=== PATIENT | male | born 1945 | race African-American/Black ===

== ENCOUNTER 2016-12-24 01:20 | Inpatient (IN) | payer OTHER ==
[~2016-12-24] VITALS: Ht 177.8 cm; Wt 102.6 kg
[~2016-12-24 01:20] MED LIST: AMLO10TA2 PO; ASPI-482 PO; ASPI81TA44 PO; CARV25TA2 PO; CRESTOR40 MG PO; HYDR-2758 PO; HYDR25TA9 PO; LOSA100T6 PO; NIAC500T PO; TAMS0.4C2 PO; TRAM50TA PO
[2016-12-24] MEDS ORDERED: fentaNYL PF VIAL 100 MCG/2 ML VIAL IV PRN (02:00)
[2016-12-24 02:16] LABS: BASO % 0 % (0-3); EOS % 4 % (0-3); HEMATOCRIT 42.4 % (39.0-53.0); HEMOGLOBIN 13.6 g/dL (13.0-17.5); LYMPH # 2.4 x10^3/uL (1.0-4.8); LYMPH % 44 % (24-48); MEAN CORPUSCULAR HEMOGLOBIN 28 pg (25-35); MEAN CORPUSCULAR HGB CONC 32 g/dL (31-37); MEAN CORPUSCULAR VOLUME 86 fL (79-100); MONO % 8 % (0-9); NEUT % 45 % (31-73); PLATELET COUNT 183 x10^3/uL (140-400); RED CELL DISTRIBUTION WIDTH 15.2 % (11.5-14.5); WHITE BLOOD COUNT 5.6 x10^3/uL (4.0-11.0)
[2016-12-24 02:29] LABS: CALCIUM 9.3 mg/dL (8.5-10.1); CREATININE 1.5 mg/dL (0.7-1.3); POTASSIUM 3.6 mmol/L (3.5-5.1)
[2016-12-24] MEDS ORDERED: IV NORMAL SALINE 500ML BAG 500 ML IV ONE (02:30)
[2016-12-24] MEDS ORDERED: ONDANSETRON PF 4 MG/2 ML VIAL. IV ONE (02:30)
[2016-12-24 02:36] LABS: ALBUMIN 3.9 g/dL (3.4-5.0); ALBUMIN/GLOBULIN RATIO 1.1 (1.0-1.7); TOTAL BILIRUBIN 0.4 mg/dL (0.2-1.0); TOTAL PROTEIN 7.6 g/dL (6.4-8.2)
[2016-12-24] MEDS ORDERED: BENZONATATE 100 MG CAPSULE. PO ONE (03:30)
[2016-12-24] MEDS ORDERED: AZITHRMYCN 500MG IVPB FOR OMNI 250 ML IV ONE (03:30)
[2016-12-24] MEDS ORDERED: IPRATRPIUM/ALBUTEROL 0.5/2.5MG 3 ML NEBU. NEB ONE (03:30)
[2016-12-24 03:44] LABS: BILIRUBIN,URINE NEGATIVE (NEG); GLUCOSE,URINE NEGATIVE (NEG); NITRITE,URINE NEGATIVE (NEG); PROTEIN,URINE NEGATIVE (NEG-TRACE); UROBILINOGEN,URINE 0.2 mg/dL (0.2 mg/dL)
[2016-12-24 03:58] LABS: BACTERIA,URINE 0 /HPF (0-FEW); SQUAMOUS EPITHELIAL CELL,UR OCC /LPF
[2016-12-24] MEDS ORDERED: ACETAMINOPHEN 325 MG TABLET. PO PRN (04:45)
[2016-12-24] MEDS ORDERED: MORPHINE SULFATE 2 MG/ML DISP.SYRIN. IV PRN (04:45)
[2016-12-24] MEDS ORDERED: ONDANSETRON PF 4 MG/2 ML VIAL. IV PRN (04:45)
--- NOTE | 2016-12-24 04:52 | PHYS DOC ---
Past Medical History Past Medical History: Gallstones, Hypertension, Kidney Stone Past Surgical History: Other Additional Past Surgical Histo: gall stone removal, cardiac stents Alcohol Use: Occasionally Drug Use: None Adult General Chief Complaint Chief Complaint: ABDOMINAL PAIN HPI HPI Patient is a 71 year old male who presents with abdominal pain. Reports 3 or history of epigastric abdominal pain he describes as tightness. Pain nonradiating. Denies fevers or chills, nausea or vomiting, diarrhea or constipation, dysuria or hematuria. Denies chest pain or shortness of breath. Reports frequent cough. History of cholecystectomy and CAD status post cardiac stents. Nonsmoker. PCP is Dr. Gastelum. Review of Systems Review of Systems Constitutional: Denies fever or chills Eyes: Denies change in visual acuity HENT: Denies nasal congestion or sore throat Respiratory: Reports cough, denies shortness of breath Cardiovascular: Denies chest pain or edema GI: Reports abdominal pain, denies nausea, vomiting, bloody stools or diarrhea : Denies dysuria or hematuria Musculoskeletal: Denies back pain or joint pain Integument: Denies rash or skin lesions Neurologic: Denies headache, focal weakness or sensory changes Current Medications Current Medications Current Medications Medications (Trade) Dose Ordered Sig/Umu Start Time Stop Time Status Last Admin Dose Admin Fentanyl Citrate (Fentanyl 2ml Vial) 50 mcg PRN Q15MIN PRN 12/24/16 02:00 12/24/16 07:00 DC 12/24/16 02:12 50 MCG Ondansetron HCl (Zofran) 4 mg 1X ONCE 12/24/16 02:30 12/24/16 02:31 DC 12/24/16 02:12 4 MG Sodium Chloride 500 ml @ 500 mls/hr 1X ONCE 12/24/16 02:30 12/24/16 03:29 DC 12/24/16 02:11 500 MLS/HR Allergies Allergies Allergies Coded Allergies Type Severity Reaction Last Updated Verified No Known Drug Allergies 11/13/13 No Physical Exam Physical Exam Constitutional: Obese, no acute distress, non-toxic appearance. HENT: Normocephalic, atraumatic, bilateral external ears normal, oropharynx moist, nose normal. Eyes: PERRLA, EOMI, conjunctiva normal, no discharge. Neck: supple, no stridor. Cardiovascular: RRR, no murmurs, no edema. Lungs & Thorax: LCTAB, no wheezing, no respiratory distress. Frequent dry cough , oxygen saturation 80 9090% on room air with good waveform, placed on oxygen 3 L by nasal cannula Abdomen: Normal bowel sounds, soft, upper abdominal tenderness greatest in the epigastrium, no rebound or guarding, no masses or pulsatile masses, nondistended. Skin: Warm, dry, no erythema, no rash. Back: No CVA tenderness. Extremities: No tenderness, no edema. Neurologic: Alert and oriented X 3, no focal deficits noted. Psychologic: Affect normal, judgement normal, mood normal. Current Patient Data Vital Signs Vital Signs Date Time Temp Pulse Resp B/P (MAP) Pulse Ox O2 Delivery O2 Flow Rate FiO2 12/24/16 02:30 80 28 161/87 (111) 94 Nasal Cannula 3.0 12/24/16 01:51 98.2 98.2 Lab Values Laboratory Tests Test 12/24/16 01:45 White Blood Count 5.6 x10^3/uL (4.0-11.0) Red Blood Count 4.90 x10^6/uL (4.30-5.70) Hemoglobin 13.6 g/dL (13.0-17.5) Hematocrit 42.4 % (39.0-53.0) Mean Corpuscular Volume 86 fL (79-100) Mean Corpuscular Hemoglobin 28 pg (25-35) Mean Corpuscular Hemoglobin Concent 32 g/dL (31-37) Red Cell Distribution Width 15.2 % (11.5-14.5) H Platelet Count 183 x10^3/uL (140-400) Neutrophils (%) (Auto) 45 % (31-73) Lymphocytes (%) (Auto) 44 % (24-48) Monocytes (%) (Auto) 8 % (0-9) Eosinophils (%) (Auto) 4 % (0-3) H Basophils (%) (Auto) 0 % (0-3) Neutrophils # (Auto) 2.5 x10^3uL (1.8-7.7) Lymphocytes # (Auto) 2.4 x10^3/uL (1.0-4.8) Monocytes # (Auto) 0.4 x10^3/uL (0.0-1.1) Eosinophils # (Auto) 0.2 x10^3/uL (0.0-0.7) Basophils # (Auto) 0.0 x10^3/uL (0.0-0.2) Sodium Level 143 mmol/L (136-145) Potassium Level 3.6 mmol/L (3.5-5.1) Chloride Level 107 mmol/L (98-107) Carbon Dioxide Level 27 mmol/L (21-32) Anion Gap 9 (6-14) Blood Urea Nitrogen 12 mg/dL (8-26) Creatinine 1.5 mg/dL (0.7-1.3) H Estimated GFR (Cockcroft-Gault) 56.0 BUN/Creatinine Ratio 8 (6-20) Glucose Level 113 mg/dL (70-99) H Calcium Level 9.3 mg/dL (8.5-10.1) Total Bilirubin 0.4 mg/dL (0.2-1.0) Aspartate Amino Transferase (AST) 20 U/L (15-37) Alanine Aminotransferase (ALT) 25 U/L (16-63) Alkaline Phosphatase 65 U/L (46-116) Troponin I Quantitative 0.037 ng/mL (0.000-0.055) PH-Alb-V-Type Natriuretic Peptide 871 pg/mL (0-124) H Total Protein 7.6 g/dL (6.4-8.2) Albumin 3.9 g/dL (3.4-5.0) Albumin/Globulin Ratio 1.1 (1.0-1.7) Triglycerides Level 134 mg/dL (0-150) Cholesterol Level 282 mg/dL (0-200) H LDL Cholesterol, Calculated 201 mg/dL (0-100) H VLDL Cholesterol, Calculated 27 mg/dL (0-40) Non-HDL Cholesterol Calculated 228 mg/dL (0-129) H HDL Cholesterol 54 mg/dL (40-60) Cholesterol/HDL Ratio 5.2 Lipase 312 U/L (73-393) Laboratory Tests 12/24/16 01:45 Laboratory Tests 12/24/16 01:45 EKG EKG interpreted by me: NSR rate 88, T waves inverted in 1 & aVL without ST depression similar to previous EKG dated 03/16/2016, no STEMI, intraventricular block, no ectopy.[] Radiology/Procedures Radiology/Procedures CXR: interpreted by me: RML infiltrate, cardiomegaly, no pneumothorax. mediastinum appears widened, similar to previous study dated 03/16/2016 with tortuous aorta.[] Course & Med Decision Making Course & Med Decision Making Pertinent Labs and Imaging studies reviewed. (See chart for details) Patient presents with abdominal pain. Noted to be hypoxic with cough upon arrival. Gave pain medication and antiemetics. Initially unable to lie flat for CT due to frequent coughing. Gave DuoNeb and Tessalon Perles. He was able to tolerate CT. Chest x-ray showed infiltrate. Gave antibiotics for community- acquired pneumonia. Does not meet criteria for sepsis. No recent hospitalizations. CT shows no acute intra-abdominal process. Recommended admission to the hospital for further evaluation and treatment. The patient agreed with plan of care. Discussed with Dr. Gastelum who agrees to admit to inpatient status. We will obtain repeat troponin due to possible cardiac nature of the abdominal pain. Gave Lasix for elevated BNP with evidence of CHF. Cardiology consult & pulmonary consult requested. The patient had CT of his abdomen with extremely delayed interpretation by radiologist, prolonging his stay in the emergency department. He was not found to have any acute abnormality on this study. He was admitted in stable condition. [] Dragon Disclaimer Dragon Disclaimer This electronic medical record was generated, in whole or in part, using a voice recognition dictation system. Departure Departure Impression: Primary Impression: Community acquired pneumonia Additional Impressions: Hypoxia Elevated brain natriuretic peptide (BNP) level Abdominal pain Disposition: ADMITTED INPATIENT Admitting Physician: Trav Gastelum Condition: STABLE Referrals: TRAV GASTELUM MD (PCP) Problem Qualifiers JUHI GUIDO MD Dec 24, 2016 04:52
--- NOTE | 2016-12-24 05:39 | RAD ---
INDICATION: ABDOMEN PAIN
SENT OLD FILMS FROM 03.16.16 COMPARISON: March 16, 2016 TECHNIQUE: Axial CT images were obtained through the abdomen and pelvis without intravenous contrast. Limited assessment of solid organ structures and vasculature secondary to lack of intravenous contrast. One or more of the following individualized dose reduction techniques were utilized for this examination: 1. Automated exposure control; 2. Adjustment of the mA and/or kV according to patient size; 3. Use of iterative reconstruction technique. FINDINGS: Groundglass opacities at lung bases with interstitial thickening with more focal nodular opacities at right lung base. Moderate calcific atherosclerosis. Postcholecystectomy changes without intrahepatic bile duct dilation. No peripancreatic edema. Evaluation of the pancreas without contrast. Spleen unremarkable. Multiple left greater than right renal stones. Left nephroureteral stent. Mild left hydronephrosis. 38 mm right renal cystic lesion again seen. No right hydronephrosis. Bladder is partially distended. Colonic diverticulosis. No definite periappendiceal inflammation. Calcification left upper leg anteriorly which could be from calcific tendinosis. Small fat-containing umbilical hernia. No dilated loops of bowel to suggest obstruction. Stomach is not very distended but wall appears mildly prominent. Degenerative changes spine. Degenerative changes of the hips. IMPRESSION: 1. Groundglass opacities in bilateral lung bases with interstitial thickening and small pleural effusion. Could be secondary to pulmonary edema. In addition there is a more focal opacity right lung base. Could be from confluent edema but a region of infiltrate is not excluded. 2. Left-sided nephroureteral stent with left greater than right renal stones. There is mild left-sided hydronephrosis. 3. Severe degenerative changes of the spine with multilevel central canal and neural foraminal stenosis. Electronically signed by: Enrike Gastelum MD (12/24/2016 5:36 AM)
[2016-12-24] MEDS ORDERED: FUROSEMIDE 40 MG/4 ML VIAL. IVP ONE ×2 (06:00→11:15)
[2016-12-24 06:16] VITALS: BP 166/102
--- NOTE | 2016-12-24 06:18 | EKG ---
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
[2016-12-24 07:00] VITALS: BP 155/95
[2016-12-24] MEDS: IPRATRPIUM/ALBUTEROL 0.5/2.5MG 3 ML NEBU. NEB SCH ×4 (07:12→19:16)
--- NOTE | 2016-12-24 07:54 | RAD ---
Indication shortness of breath. A single view of the chest was obtained and is compared to an examination 03/16/2016. Moderately tortuous thoracic aorta is noted similar to the previous exam. Heart size is at the upper limits of normal but unchanged. There are pulmonary infiltrates suggesting moderate congestive heart failure. A consolidated pneumonia is not seen. There is no pleural fluid or pneumothorax. IMPRESSION: Moderate congestive heart failure. No focal process seen
--- NOTE | 2016-12-24 07:59 | ACF ---
Admission Forms Criteria PNEUMONIA, COMMUNITY ACQUIRED Clinical Indications for Admission to Inpatient Care (Place 'X' for any and all applicable criteria): Admission to inpatient status for two midnights or more is indicated for ANY ONE of the following (1)(2)(3): [ ]I. Hypoxia [ ]II. Hemodynamic instability [ ]III. Altered mental status that is severe or persistent [ ]IV. Dehydration that is severe or persistent. [ ]V. Bacteremia [X]. Moderate-risk or high-risk category patients (Pneumonia Severity Index ( PSI) class IV or V, or CURB-65 score of 3 or greater). [ ]VII. Intermediate-risk category patients (e.g., PSI class III or CURB-65 score 2) who do not improve with outpatient and observation care treatment [ ]VIII. Outpatient treatment failure as indicated by 1 or more of the following(9): [ ]a) Failure to respond to antibiotic (eg, resistant organism) [ ]b) Clinically significant adverse effects from medication (eg, vomiting) [ ]c) Complications of pneumonia (eg, empyema, bacteremia) [ ]d) Significant worsening of comorbid cond necessitating inpatient care (eg, chronic heart failure) [ ]IX. Appropriate diagnostic testing and treatment unavailable in outpatient or recovery facility (eg, testing or infection control measures unavailable) [ ]X. Respiratory finding (eg. tachypnea) that do not respond to outpatient observation care treatment [ ]XI. Complicated pleural effusions (eg, emphysema, exudative, loculated) [ ]XII. Immunocompromised patients (e.g., AIDS, chronic steroid use) at moderate or high risk based on clinical evaluation. Extended stay beyond goal length of stay may be needed for (20) [ ]a) Unclear diagnosis [ ]b) Pleural disease [ ]c) Severe pneumonia or treatment failure [ ]d) Respiratory failure [ ]e) New onset hyponatremia (serum Na concentration less than 135 mEq/L(mmol/ L) [ ]f) Clinically significant comorbid illness (eg, heart failure, atrial fibrillation with rapid heart rate, alcohol withdrawal, renal insufficiency)(34)(35) [ ]g) Comorbid acute exacerbation of COPD(36) [ ]h) Concomitant diagnosis of malignancy [ ]i) Concomitant altered mental status [ ]j) Culture-identified Gram-negative or antibiotic-resistant organism (eg, Pseudomonas, methicillin-resistant Staphylococcus aureus MRSA)(30) [ ]k) Healthcare-associated pneumonia (36) The original [facility] content created by [facility] has been revised. The portions of the content which have been revised are identified through the use of italic text, and [facility] has neither reviewed nor approved the modified material. All other unmodified content is copyright [facility]. Please see references footnoted in the original [facility] edition 2015 Admission Criteria Met?: Yes CORINNE RAMESH Dec 24, 2016 07:59
[2016-12-24] MEDS ORDERED: PNEUMOCOCCAL VAX SCREEN BY RX. MC ONE (09:00)
[2016-12-24] MEDS ORDERED: PNEUMOC CONJ VACC 23-VALENT 0.5 ML VIAL. VAX IM ONE (09:00)
--- NOTE | 2016-12-24 09:06 | PDOC ---
Provider Note Provider Note [id number] LAURENCE MILLER MD Dec 24, 2016 09:06
--- NOTE | 2016-12-24 09:24 | HP ---
ADMIT DATE: 12/24/2016 CHIEF COMPLAINT: Shortness of breath. HISTORY OF PRESENT ILLNESS: This 71-year-old black male has a history of prior coronary artery disease with stents placed in 1999 as well as a CKD 3 and recent ureteral stenting placed in the left side per Dr. Veronica. He has no history of congestive heart failure or any other recent coronary problems. He developed fairly abrupt onset of shortness of breath, orthopnea on the evening of admission, and came to the ER, was felt to possibly have pneumonia. He was given IV Rocephin and Zithromax and the CT scan raised the question of bilateral pleural effusions, congestive heart failure. He denies any recent chest pain, sweating, nausea, leg pain, hemoptysis or other complaints. PAST MEDICAL HISTORY: Coronary stents placed in 1999. MEDICATIONS: Listed per the charts, many for high blood pressure. He has a history of CKD 3, his GFR runs around 40-45, which has been stable. He takes daily aspirin. SOCIAL HISTORY: Nonsmoker, nondrinker, . Physically active for his age. FAMILY HISTORY: Unremarkable. REVIEW OF SYSTEMS: No other complaints. OBJECTIVE: ENT: All within normal limits. NECK: No JVD. Thyroid enlargement or masses. LUNGS: Decreased breath sounds with few basilar crackles. No tachypnea. CARDIOVASCULAR: Regular rate, heart tones are unremarkable. ABDOMEN: Soft, benign and nontender. BACK: Negative. EXTREMITIES: 1+ pretibial edema only. No cords or edema. Pedal pulses are good. NEUROLOGIC: Physiologic. ASSESSMENT: Appears to be more of a congestive heart failure, dyspnea actual pneumonia. History of coronary artery disease in the past. Chronic kidney disease and hypertension are risks factors. PLAN: Echo, Lasix, and DVT study and further evaluation. LAURENCE MILLER MD DR: LIV/sanam JOB#: [id number] / [id number]
[2016-12-24] MEDS ORDERED: hydroCHLOROthiazide 25 MG TABLET PO SCH (09:30)
--- NOTE | 2016-12-24 09:53 | PDOC2 ---
SAAD MEZA MIXER CRANE OPERATOR 12/24/16 0953: CARDIAC CONSULT DATE OF CONSULT Date of Consult DATE: 12/24/16 TIME: 09:46 REASON FOR CONSULT Reason for Consult: Elevated BNP REFERRING PHYSICIAN Referring Physician: Dr. Nicholas SOURCE Source: Chart review, Patient HISTORY OF PRESENT ILLNESS HISTORY OF PRESENT ILLNESS This is a 71 yo male who presented with complaints of shortness of breath. Patient reports symptoms began yesterday afternoon. Worsened last night, especially after he laid down in bed. Denies any chest pain, Le edema, palpitations, dizziness, diaphoresis, or nausea/vomiting. No recent illness/ fevers. Does report chronic, non-productive cough. Does have a history of CAD with stent placement in 2001. 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 No previous h/o CHF and report feeling well until yesterday. PAST MEDICAL HISTORY Cardiovascular: CAD (s/p remote stent ), HTN GI: No pertinent hx Heme/Onc: No pertinent hx Hepatobiliary: No pertinent hx Psych: No pertinent hx Musculoskeletal: Osteoarthritis Rheumatologic: No pertinent hx Infectious disease: No pertinent hx ENT: No pertinent hx Renal/: Chronic renal insuff Endocrine: No pertinent hx Dermatology: No pertinent hx PAST SURGICAL HISTORY Past Surgical History: Cholecystectomy, Other (ureteral stenting ) FAMILY HISTORY Family History: Coronary Artery Disease, Diabetes, Hypertension SOCIAL HISTORY Smoke: No ALCOHOL: none Drugs: None Lives: with Family CURRENT MEDICATIONS CURRENT MEDICATIONS Current Medications Medications (Trade) Dose Ordered Sig/Umu Route PRN Reason Start Time Stop Time Status Last Admin Dose Admin Sodium Chloride 500 ml @ 500 mls/hr 1X ONCE IV 12/24/16 02:30 12/24/16 03:29 DC 12/24/16 02:11 Ondansetron HCl (Zofran) 4 mg 1X ONCE IV 12/24/16 02:30 12/24/16 02:31 DC 12/24/16 02:12 Fentanyl Citrate (Fentanyl 2ml Vial) 50 mcg PRN Q15MIN PRN IV PAIN GREATER THAN 3/10 12/24/16 02:00 12/24/16 07:00 DC 12/24/16 02:12 Albuterol/ Ipratropium (Duoneb) 3 ml 1X ONCE NEB 12/24/16 03:30 12/24/16 03:31 DC 12/24/16 03:18 Benzonatate (Tessalon Perle) 100 mg 1X ONCE PO 12/24/16 03:30 12/24/16 03:31 DC 12/24/16 03:30 Ceftriaxone Sodium 50 ml @ 100 mls/hr 1X ONCE IV 12/24/16 03:30 12/24/16 03:59 DC 12/24/16 03:31 Azithromycin 250 ml @ 250 mls/hr 1X ONCE IV 12/24/16 03:30 12/24/16 04:29 DC 12/24/16 03:31 Albuterol/ Ipratropium (Duoneb) 3 ml RTQID NEB 12/24/16 08:00 12/25/16 07:59 12/24/16 07:12 Furosemide (Lasix) 40 mg 1X ONCE IVP 12/24/16 06:00 12/24/16 06:01 DC 12/24/16 06:30 ALLERGIES ALLERGIES: Coded Allergies: No Known Drug Allergies (Unverified , 11/13/13) ROS Review of System 14 point ROS conducted with pertinent positives noted above in HPI. PHYSICAL EXAM General: Alert, Oriented X3, Cooperative, No acute distress HEENT: Atraumatic, Mucous membr. moist/pink Lungs: Other (diminished bases ) Heart: Regular rate, Normal S1, Normal S2, Other (2/6 systolic murmur ) Abdomen: Soft, No tenderness Extremities: No edema, Normal pulses Skin: No breakdown, No significant lesion Neuro: Normal gait, Sensation intact Psych/Mental Status: Mental status NL, Mood NL MUSCULOSKELETAL: Osteoarthritic changes both hands VITALS VITALS Vital Signs Date Time Temp Pulse Resp B/P (MAP) Pulse Ox O2 Delivery O2 Flow Rate FiO2 12/24/16 08:23 Nasal Cannula 3.0 12/24/16 07:16 88 12/24/16 07:00 98.7 102 18 155/95 (115) 98.7 LABS Lab: Laboratory Tests Test 12/24/16 01:45 12/24/16 03:35 White Blood Count 5.6 x10^3/uL (4.0-11.0) Red Blood Count 4.90 x10^6/uL (4.30-5.70) Hemoglobin 13.6 g/dL (13.0-17.5) Hematocrit 42.4 % (39.0-53.0) Mean Corpuscular Volume 86 fL (79-100) Mean Corpuscular Hemoglobin 28 pg (25-35) Mean Corpuscular Hemoglobin Concent 32 g/dL (31-37) Red Cell Distribution Width 15.2 % (11.5-14.5) Platelet Count 183 x10^3/uL (140-400) Neutrophils (%) (Auto) 45 % (31-73) Lymphocytes (%) (Auto) 44 % (24-48) Monocytes (%) (Auto) 8 % (0-9) Eosinophils (%) (Auto) 4 % (0-3) Basophils (%) (Auto) 0 % (0-3) Neutrophils # (Auto) 2.5 x10^3uL (1.8-7.7) Lymphocytes # (Auto) 2.4 x10^3/uL (1.0-4.8) Monocytes # (Auto) 0.4 x10^3/uL (0.0-1.1) Eosinophils # (Auto) 0.2 x10^3/uL (0.0-0.7) Basophils # (Auto) 0.0 x10^3/uL (0.0-0.2) Sodium Level 143 mmol/L (136-145) Potassium Level 3.6 mmol/L (3.5-5.1) Chloride Level 107 mmol/L (98-107) Carbon Dioxide Level 27 mmol/L (21-32) Anion Gap 9 (6-14) Blood Urea Nitrogen 12 mg/dL (8-26) Creatinine 1.5 mg/dL (0.7-1.3) Estimated GFR (Cockcroft-Gault) 56.0 BUN/Creatinine Ratio 8 (6-20) Glucose Level 113 mg/dL (70-99) Calcium Level 9.3 mg/dL (8.5-10.1) Total Bilirubin 0.4 mg/dL (0.2-1.0) Aspartate Amino Transf (AST/SGOT) 20 U/L (15-37) Alanine Aminotransferase (ALT/SGPT) 25 U/L (16-63) Alkaline Phosphatase 65 U/L (46-116) Troponin I Quantitative 0.037 ng/mL (0.000-0.055) HG-Dlb-U-Type Natriuretic Peptide 871 pg/mL (0-124) Total Protein 7.6 g/dL (6.4-8.2) Albumin 3.9 g/dL (3.4-5.0) Albumin/Globulin Ratio 1.1 (1.0-1.7) Lipase 312 U/L (73-393) Urine Collection Type Unknown Urine Color Yellow Urine Clarity Clear Urine pH 6.0 Urine Specific [place] 1.015 Urine Protein Negative mg/dL (NEG-TRACE) Urine Glucose (UA) Negative mg/dL (NEG) Urine Ketones (Stick) Negative mg/dL (NEG) Urine Blood Moderate (NEG) Urine Nitrite Negative (NEG) Urine Bilirubin Negative (NEG) Urine Urobilinogen Dipstick 0.2 mg/dL (0.2 mg/dL) Urine Leukocyte Esterase Small (NEG) Urine RBC 6-10 /HPF (0-2) Urine WBC 1-4 /HPF (0-4) Urine Squamous Epithelial Cells Occ /LPF Urine Bacteria 0 /HPF (0-FEW) Urine Mucus Slight /LPF ASSESSMENT/PLAN ASSESSMENT/PLAN 1. Mild acute heart failure; improved with diuresis 2. CAD; s/p remote stent. 3. Hypertension; better controlled 4. CKD 3 Recommendations 1. Check echo to assess LV function 2. Continue diuresis with monitoring of renal function 3. Trend CE. Check lipids 4. Consider further ischemic workup, possibly as an outpatient 5. Resume antiHTN therapy 6. Continue secondary prevention measures 7. Further recommendations pending diagnostic. Problems: KAITLYN PITTMAN MD 12/25/16 0845: CARDIAC CONSULT ALLERGIES ALLERGIES: Coded Allergies: No Known Drug Allergies (Unverified , 11/13/13) ASSESSMENT/PLAN ASSESSMENT/PLAN Patient seen and examined 12/24/16. Agree with CASE LINER's assessment and plan. Continue diuresis for congestive heart failure, most probably acute on chronic systolic. CAD status appears clinically stable. Further recommendations pending echo findings. Thank you for your consultation. Problems: SAAD MEZA APRN Dec 24, 2016 09:53 KAITLYN PITTMAN MD Dec 25, 2016 08:45
--- NOTE | 2016-12-24 09:58 | RAD ---
Exam performed: Bilateral lower extremity venous Doppler. Clinical Indication: Shortness of breath Comparison: None available Technique: Grayscale, color Doppler 2-D, spectral waveform analysis of the bilateral lower extremity venous system were performed. Findings: The common femoral, superficial femoral, popliteal and proximal calf veins are all patent and demonstrate normal flow and compressibility. Normal respiratory phasicity and augmentation is present. Impression: No evidence of deep venous thrombosis in the visualized bilateral lower extremity venous system.
[2016-12-24] MEDS: TAMSULOSIN 0.4 MG CAP.ER.24H. PO SCH (10:18)
[2016-12-24] MEDS: ASPIRIN CHEWABLE 81 MG TABLET. PO SCH (10:30)
[2016-12-24] MEDS: amLODIPine BESYLATE 10 MG TABLET PO SCH (10:30)
[2016-12-24] MEDS: LOSARTAN POTASSIUM 50 MG TABLET. PO SCH (10:31)
[2016-12-24] MEDS: CARVEDILOL 12.5 MG TABLET. PO SCH ×2 (10:31→17:40)
[2016-12-24 10:53] LABS: CHOLESTEROL/HDL RATIO 5.2
[2016-12-24 11:00] VITALS: BP 139/87
--- NOTE | 2016-12-24 15:08 | PDOC ---
PULMONARY PROGRESS NOTES Vitals Vital Signs Date Time Temp Pulse Resp B/P (MAP) Pulse Ox O2 Delivery O2 Flow Rate FiO2 12/24/16 11:15 94 Nasal Cannula 4.0 12/24/16 11:00 99.5 92 18 139/87 (104) 99.5 Labs Laboratory Tests Test 12/24/16 01:45 12/24/16 03:35 12/24/16 10:45 White Blood Count 5.6 x10^3/uL (4.0-11.0) Red Blood Count 4.90 x10^6/uL (4.30-5.70) Hemoglobin 13.6 g/dL (13.0-17.5) Hematocrit 42.4 % (39.0-53.0) Mean Corpuscular Volume 86 fL (79-100) Mean Corpuscular Hemoglobin 28 pg (25-35) Mean Corpuscular Hemoglobin Concent 32 g/dL (31-37) Red Cell Distribution Width 15.2 % (11.5-14.5) Platelet Count 183 x10^3/uL (140-400) Neutrophils (%) (Auto) 45 % (31-73) Lymphocytes (%) (Auto) 44 % (24-48) Monocytes (%) (Auto) 8 % (0-9) Eosinophils (%) (Auto) 4 % (0-3) Basophils (%) (Auto) 0 % (0-3) Neutrophils # (Auto) 2.5 x10^3uL (1.8-7.7) Lymphocytes # (Auto) 2.4 x10^3/uL (1.0-4.8) Monocytes # (Auto) 0.4 x10^3/uL (0.0-1.1) Eosinophils # (Auto) 0.2 x10^3/uL (0.0-0.7) Basophils # (Auto) 0.0 x10^3/uL (0.0-0.2) Sodium Level 143 mmol/L (136-145) Potassium Level 3.6 mmol/L (3.5-5.1) Chloride Level 107 mmol/L (98-107) Carbon Dioxide Level 27 mmol/L (21-32) Anion Gap 9 (6-14) Blood Urea Nitrogen 12 mg/dL (8-26) Creatinine 1.5 mg/dL (0.7-1.3) Estimated GFR (Cockcroft-Gault) 56.0 BUN/Creatinine Ratio 8 (6-20) Glucose Level 113 mg/dL (70-99) Calcium Level 9.3 mg/dL (8.5-10.1) Total Bilirubin 0.4 mg/dL (0.2-1.0) Aspartate Amino Transf (AST/SGOT) 20 U/L (15-37) Alanine Aminotransferase (ALT/SGPT) 25 U/L (16-63) Alkaline Phosphatase 65 U/L (46-116) Troponin I Quantitative 0.037 ng/mL (0.000-0.055) 0.043 ng/mL (0.000-0.055) OQ-Esi-U-Type Natriuretic Peptide 871 pg/mL (0-124) Total Protein 7.6 g/dL (6.4-8.2) Albumin 3.9 g/dL (3.4-5.0) Albumin/Globulin Ratio 1.1 (1.0-1.7) Triglycerides Level 134 mg/dL (0-150) Cholesterol Level 282 mg/dL (0-200) LDL Cholesterol, Calculated 201 mg/dL (0-100) VLDL Cholesterol, Calculated 27 mg/dL (0-40) Non-HDL Cholesterol Calculated 228 mg/dL (0-129) HDL Cholesterol 54 mg/dL (40-60) Cholesterol/HDL Ratio 5.2 Lipase 312 U/L (73-393) Urine Collection Type Unknown Urine Color Yellow Urine Clarity Clear Urine pH 6.0 Urine Specific [place] 1.015 Urine Protein Negative mg/dL (NEG-TRACE) Urine Glucose (UA) Negative mg/dL (NEG) Urine Ketones (Stick) Negative mg/dL (NEG) Urine Blood Moderate (NEG) Urine Nitrite Negative (NEG) Urine Bilirubin Negative (NEG) Urine Urobilinogen Dipstick 0.2 mg/dL (0.2 mg/dL) Urine Leukocyte Esterase Small (NEG) Urine RBC 6-10 /HPF (0-2) Urine WBC 1-4 /HPF (0-4) Urine Squamous Epithelial Cells Occ /LPF Urine Bacteria 0 /HPF (0-FEW) Urine Mucus Slight /LPF Thyroid Stimulating Hormone (TSH) 5.313 uIU/mL (0.358-3.74) Laboratory Tests Test 12/24/16 01:45 12/24/16 03:35 12/24/16 10:45 White Blood Count 5.6 x10^3/uL (4.0-11.0) Red Blood Count 4.90 x10^6/uL (4.30-5.70) Hemoglobin 13.6 g/dL (13.0-17.5) Hematocrit 42.4 % (39.0-53.0) Mean Corpuscular Volume 86 fL (79-100) Mean Corpuscular Hemoglobin 28 pg (25-35) Mean Corpuscular Hemoglobin Concent 32 g/dL (31-37) Red Cell Distribution Width 15.2 % (11.5-14.5) Platelet Count 183 x10^3/uL (140-400) Neutrophils (%) (Auto) 45 % (31-73) Lymphocytes (%) (Auto) 44 % (24-48) Monocytes (%) (Auto) 8 % (0-9) Eosinophils (%) (Auto) 4 % (0-3) Basophils (%) (Auto) 0 % (0-3) Neutrophils # (Auto) 2.5 x10^3uL (1.8-7.7) Lymphocytes # (Auto) 2.4 x10^3/uL (1.0-4.8) Monocytes # (Auto) 0.4 x10^3/uL (0.0-1.1) Eosinophils # (Auto) 0.2 x10^3/uL (0.0-0.7) Basophils # (Auto) 0.0 x10^3/uL (0.0-0.2) Sodium Level 143 mmol/L (136-145) Potassium Level 3.6 mmol/L (3.5-5.1) Chloride Level 107 mmol/L (98-107) Carbon Dioxide Level 27 mmol/L (21-32) Anion Gap 9 (6-14) Blood Urea Nitrogen 12 mg/dL (8-26) Creatinine 1.5 mg/dL (0.7-1.3) Estimated GFR (Cockcroft-Gault) 56.0 BUN/Creatinine Ratio 8 (6-20) Glucose Level 113 mg/dL (70-99) Calcium Level 9.3 mg/dL (8.5-10.1) Total Bilirubin 0.4 mg/dL (0.2-1.0) Aspartate Amino Transf (AST/SGOT) 20 U/L (15-37) Alanine Aminotransferase (ALT/SGPT) 25 U/L (16-63) Alkaline Phosphatase 65 U/L (46-116) Troponin I Quantitative 0.037 ng/mL (0.000-0.055) 0.043 ng/mL (0.000-0.055) OZ-Xpx-K-Type Natriuretic Peptide 871 pg/mL (0-124) Total Protein 7.6 g/dL (6.4-8.2) Albumin 3.9 g/dL (3.4-5.0) Albumin/Globulin Ratio 1.1 (1.0-1.7) Triglycerides Level 134 mg/dL (0-150) Cholesterol Level 282 mg/dL (0-200) LDL Cholesterol, Calculated 201 mg/dL (0-100) VLDL Cholesterol, Calculated 27 mg/dL (0-40) Non-HDL Cholesterol Calculated 228 mg/dL (0-129) HDL Cholesterol 54 mg/dL (40-60) Cholesterol/HDL Ratio 5.2 Lipase 312 U/L (73-393) Urine Collection Type Unknown Urine Color Yellow Urine Clarity Clear Urine pH 6.0 Urine Specific [place] 1.015 Urine Protein Negative mg/dL (NEG-TRACE) Urine Glucose (UA) Negative mg/dL (NEG) Urine Ketones (Stick) Negative mg/dL (NEG) Urine Blood Moderate (NEG) Urine Nitrite Negative (NEG) Urine Bilirubin Negative (NEG) Urine Urobilinogen Dipstick 0.2 mg/dL (0.2 mg/dL) Urine Leukocyte Esterase Small (NEG) Urine RBC 6-10 /HPF (0-2) Urine WBC 1-4 /HPF (0-4) Urine Squamous Epithelial Cells Occ /LPF Urine Bacteria 0 /HPF (0-FEW) Urine Mucus Slight /LPF Thyroid Stimulating Hormone (TSH) 5.313 uIU/mL (0.358-3.74) Medications Active Scripts Medications Dose Route/Sig Max Daily Dose Days Date Category Children's Aspirin (Aspirin) 81 Mg Tab.chew 81 Mg PO DAILY 03/24/16 Reported Hydrocodone-Apap 5-325 (Hydrocodone Bit/Acetaminophen) 1 Each Tablet 1 Tab PO PRN Q6HRS PRN 03/16/16 Rx Tramadol Hcl 50 Mg Tablet 50 Mg PO Q6H PRN 01/04/14 Reported Hydrochlorothiazide Tablet (Hydrochlorothiazide) 25 Mg Tablet 25 Mg PO DAILY 01/04/14 Reported Losartan Potassium 100 Mg Tablet 100 Mg PO DAILY 01/04/14 Reported Crestor (Rosuvastatin Calcium) 40 Mg Tablet 40 Mg PO HS 01/04/14 Reported Amlodipine Besylate 10 Mg Tablet 10 Mg PO DAILY 01/04/14 Reported Carvedilol 25 Mg Tablet 25 Mg PO BID 01/04/14 Reported Tamsulosin Hcl 0.4 Mg Cap.er.24h 0.4 Mg PO DAILY 01/04/14 Reported Niaspan (Niacin) 500 Mg Tab.er.24h 500 Mg PO HS 01/04/14 Reported Impression . FULL NOTE DICTATED ABNORAML CXR AND CT OF CHEST COMPATIBLE WITH CHF NO NEED FOR ANTIBX WILL FOLLOW CARD INPUT NEEDS OUTPT SLEEP STUDY FOR SOM MAXI SALDANA MD Dec 24, 2016 15:08
--- NOTE | 2016-12-24 16:02 | CARD ---
APPROVED REPORT EXAM: Two-dimensional and M-mode echocardiogram with Doppler and color Doppler. Other Information Quality : Fair INDICATION Congestive Heart Failure 2D DIMENSIONS Left Atrium(2D)3.9 (1.6-4.0cm)IVSd1.2 (0.7-1.1cm) Aortic Root(2D)2.5 (2.0-3.7cm)LVDd5.8 (3.9-5.9cm) LVOT Diameter2.2 (1.8-2.4cm)PWd1.1 (0.7-1.1cm) LVDs5.0 (2.5-4.0cm)FS (%) 13.3 % SV46.3 mlLVEF(%)25.0 (>50%) Aortic Valve AoV Peak Luciano.119.8cm/sAoV VTI19.9cm AO Peak GR.5.7mmHgLVOT Peak Luciano.49.2cm/s LVOT VTI 9.02cmAO Mean GR.4mmHg CARLOS (VMAX)1.56cm2 Mitral Valve MV E Oqcpoyzd35.9cm/sMV DECEL CXIC323us MV A Tnkupycm662.1cm/sMV QZA31su E/A Ratio0.9MVA (PHT)3.79cm2 TDI E/Lateral E'24.0E/Medial E'24.0 Tricuspid Valve TR P. Mfrjtucg170cr/sRAP REBTSUSA9oeMu TR Peak Gr.84ewAwXZLW40tvOm Pulmonary Vein S1 Rosgztqp62.2cm/sD2 Vgusjsdy49.7cm/s PVa [id number] LEFT VENTRICLE The left ventricle is normal size. There is mild concentric left ventricular hypertrophy. The ejectio n fraction is severely impaired. The Ejection Fraction is 20-25%. There is global hypokinesis of the left ventricle. Transmitral Doppler flow pattern is Grade I-abnormal relaxation pattern. RIGHT VENTRICLE The right ventricle is normal size. The right ventricular systolic function is normal. ATRIA The left atrium is mildly dilated. The right atrium size is normal. The interatrial septum is intact with no evidence for an atrial septal defect or patent foramen ovale as noted on 2-D or Doppler imagi ng. AORTIC VALVE Not well visualized. Doppler and Color Flow revealed trace to mild aortic regurgitation. There is no significant aortic valvular stenosis. MITRAL VALVE Not well visualized. There is no mitral valve stenosis. Doppler and Color-flow revealed mild mitral r egurgitation. TRICUSPID VALVE Not well visualized. Doppler and Color Flow revealed trace tricuspid regurgitation. The PA pressure w as estimated at 28 mmHg. There is no tricuspid valve stenosis. PULMONIC VALVE There is no pulmonic valvular stenosis. GREAT VESSELS The aortic root is normal in size. The ascending aorta is normal in size. The IVC is normal in size a nd collapses >50% with inspiration. PERICARDIAL EFFUSION There is no evidence of significant pericardial effusion. Critical Notification Critical Value: No <Conclusion> The ejection fraction is severely impaired. The Ejection Fraction is 20-25%. There is global hypokinesis of the left ventricle.
[2016-12-24 19:25] VITALS: BP 104/62
[2016-12-24] MEDS: ATORVASTATIN CALCIUM 40 MG TABLET. PO SCH (20:58)
[2016-12-24] MEDS: BENZONATATE 100 MG CAPSULE. PO SCH (20:58)
[2016-12-24 23:10] VITALS: BP 97/60
[2016-12-25 03:22] VITALS: BP 113/66
[2016-12-25 04:32] LABS: BASO % 0 % (0-3); EOS % 1 % (0-3); HEMOGLOBIN 12.5 g/dL (13.0-17.5); LYMPH # 1.4 x10^3/uL (1.0-4.8); LYMPH % 20 % (24-48); MEAN CORPUSCULAR HEMOGLOBIN 28 pg (25-35); MEAN CORPUSCULAR HGB CONC 33 g/dL (31-37); MEAN CORPUSCULAR VOLUME 86 fL (79-100); MONO % 7 % (0-9); NEUT % 71 % (31-73); PLATELET COUNT 174 x10^3/uL (140-400); RED BLOOD COUNT 4.45 x10^6/uL (4.30-5.70); RED CELL DISTRIBUTION WIDTH 15.1 % (11.5-14.5); WHITE BLOOD COUNT 6.9 x10^3/uL (4.0-11.0)
[2016-12-25 04:49] LABS: CALCIUM 8.9 mg/dL (8.5-10.1); GFR 40.2; POTASSIUM 3.5 mmol/L (3.5-5.1)
[2016-12-25 07:00] VITALS: BP 117/75
--- NOTE | 2016-12-25 08:52 | PDOC ---
Provider Note Provider Note good diuresis, less dyspnea- echo ef 25 %, creat up 2.0 after lasix- likely need cath re low ef, renal consult in advance, sono- tsh up a little, check T4- high lipids, on statin LAURENCE MILLER MD Dec 25, 2016 08:52
--- NOTE | 2016-12-25 08:53 | PDOC ---
PULMONARY PROGRESS NOTES Subjective PT LESS SOA NO CHEST PAIN Vitals Vital Signs Date Time Temp Pulse Resp B/P (MAP) Pulse Ox O2 Delivery O2 Flow Rate FiO2 12/25/16 07:00 98.7 70 18 117/75 (89) 98 Nasal Cannula 2.0 98.7 ROS: No Nausea, No Chest Pain, No Abdominal Pain, No Increase Cough Lungs: Clear Cardiovascular: S1, S2 Abdomen: Soft Neuro Exam: Alert Extremities: No Edema Labs Laboratory Tests Test 12/24/16 01:45 12/24/16 03:35 12/24/16 10:45 12/24/16 15:55 White Blood Count 5.6 x10^3/uL (4.0-11.0) Red Blood Count 4.90 x10^6/uL (4.30-5.70) Hemoglobin 13.6 g/dL (13.0-17.5) Hematocrit 42.4 % (39.0-53.0) Mean Corpuscular Volume 86 fL (79-100) Mean Corpuscular Hemoglobin 28 pg (25-35) Mean Corpuscular Hemoglobin Concent 32 g/dL (31-37) Red Cell Distribution Width 15.2 % (11.5-14.5) Platelet Count 183 x10^3/uL (140-400) Neutrophils (%) (Auto) 45 % (31-73) Lymphocytes (%) (Auto) 44 % (24-48) Monocytes (%) (Auto) 8 % (0-9) Eosinophils (%) (Auto) 4 % (0-3) Basophils (%) (Auto) 0 % (0-3) Neutrophils # (Auto) 2.5 x10^3uL (1.8-7.7) Lymphocytes # (Auto) 2.4 x10^3/uL (1.0-4.8) Monocytes # (Auto) 0.4 x10^3/uL (0.0-1.1) Eosinophils # (Auto) 0.2 x10^3/uL (0.0-0.7) Basophils # (Auto) 0.0 x10^3/uL (0.0-0.2) Sodium Level 143 mmol/L (136-145) Potassium Level 3.6 mmol/L (3.5-5.1) Chloride Level 107 mmol/L (98-107) Carbon Dioxide Level 27 mmol/L (21-32) Anion Gap 9 (6-14) Blood Urea Nitrogen 12 mg/dL (8-26) Creatinine 1.5 mg/dL (0.7-1.3) Estimated GFR (Cockcroft-Gault) 56.0 BUN/Creatinine Ratio 8 (6-20) Glucose Level 113 mg/dL (70-99) Calcium Level 9.3 mg/dL (8.5-10.1) Total Bilirubin 0.4 mg/dL (0.2-1.0) Aspartate Amino Transf (AST/SGOT) 20 U/L (15-37) Alanine Aminotransferase (ALT/SGPT) 25 U/L (16-63) Alkaline Phosphatase 65 U/L (46-116) Troponin I Quantitative 0.037 ng/mL (0.000-0.055) 0.043 ng/mL (0.000-0.055) 0.057 ng/mL (0.000-0.055) SH-Sgk-R-Type Natriuretic Peptide 871 pg/mL (0-124) Total Protein 7.6 g/dL (6.4-8.2) Albumin 3.9 g/dL (3.4-5.0) Albumin/Globulin Ratio 1.1 (1.0-1.7) Triglycerides Level 134 mg/dL (0-150) Cholesterol Level 282 mg/dL (0-200) LDL Cholesterol, Calculated 201 mg/dL (0-100) VLDL Cholesterol, Calculated 27 mg/dL (0-40) Non-HDL Cholesterol Calculated 228 mg/dL (0-129) HDL Cholesterol 54 mg/dL (40-60) Cholesterol/HDL Ratio 5.2 Lipase 312 U/L (73-393) Urine Collection Type Unknown Urine Color Yellow Urine Clarity Clear Urine pH 6.0 Urine Specific [place] 1.015 Urine Protein Negative mg/dL (NEG-TRACE) Urine Glucose (UA) Negative mg/dL (NEG) Urine Ketones (Stick) Negative mg/dL (NEG) Urine Blood Moderate (NEG) Urine Nitrite Negative (NEG) Urine Bilirubin Negative (NEG) Urine Urobilinogen Dipstick 0.2 mg/dL (0.2 mg/dL) Urine Leukocyte Esterase Small (NEG) Urine RBC 6-10 /HPF (0-2) Urine WBC 1-4 /HPF (0-4) Urine Squamous Epithelial Cells Occ /LPF Urine Bacteria 0 /HPF (0-FEW) Urine Mucus Slight /LPF Thyroid Stimulating Hormone (TSH) 5.313 uIU/mL (0.358-3.74) Test 12/25/16 04:00 White Blood Count 6.9 x10^3/uL (4.0-11.0) Red Blood Count 4.45 x10^6/uL (4.30-5.70) Hemoglobin 12.5 g/dL (13.0-17.5) Hematocrit 38.0 % (39.0-53.0) Mean Corpuscular Volume 86 fL (79-100) Mean Corpuscular Hemoglobin 28 pg (25-35) Mean Corpuscular Hemoglobin Concent 33 g/dL (31-37) Red Cell Distribution Width 15.1 % (11.5-14.5) Platelet Count 174 x10^3/uL (140-400) Neutrophils (%) (Auto) 71 % (31-73) Lymphocytes (%) (Auto) 20 % (24-48) Monocytes (%) (Auto) 7 % (0-9) Eosinophils (%) (Auto) 1 % (0-3) Basophils (%) (Auto) 0 % (0-3) Neutrophils # (Auto) 4.9 x10^3uL (1.8-7.7) Lymphocytes # (Auto) 1.4 x10^3/uL (1.0-4.8) Monocytes # (Auto) 0.5 x10^3/uL (0.0-1.1) Eosinophils # (Auto) 0.1 x10^3/uL (0.0-0.7) Basophils # (Auto) 0.0 x10^3/uL (0.0-0.2) Sodium Level 142 mmol/L (136-145) Potassium Level 3.5 mmol/L (3.5-5.1) Chloride Level 105 mmol/L (98-107) Carbon Dioxide Level 27 mmol/L (21-32) Anion Gap 10 (6-14) Blood Urea Nitrogen 21 mg/dL (8-26) Creatinine 2.0 mg/dL (0.7-1.3) Estimated GFR (Cockcroft-Gault) 40.2 Glucose Level 125 mg/dL (70-99) Calcium Level 8.9 mg/dL (8.5-10.1) Laboratory Tests Test 12/24/16 10:45 12/24/16 15:55 12/25/16 04:00 Troponin I Quantitative 0.043 ng/mL (0.000-0.055) 0.057 ng/mL (0.000-0.055) Thyroid Stimulating Hormone (TSH) 5.313 uIU/mL (0.358-3.74) White Blood Count 6.9 x10^3/uL (4.0-11.0) Red Blood Count 4.45 x10^6/uL (4.30-5.70) Hemoglobin 12.5 g/dL (13.0-17.5) Hematocrit 38.0 % (39.0-53.0) Mean Corpuscular Volume 86 fL (79-100) Mean Corpuscular Hemoglobin 28 pg (25-35) Mean Corpuscular Hemoglobin Concent 33 g/dL (31-37) Red Cell Distribution Width 15.1 % (11.5-14.5) Platelet Count 174 x10^3/uL (140-400) Neutrophils (%) (Auto) 71 % (31-73) Lymphocytes (%) (Auto) 20 % (24-48) Monocytes (%) (Auto) 7 % (0-9) Eosinophils (%) (Auto) 1 % (0-3) Basophils (%) (Auto) 0 % (0-3) Neutrophils # (Auto) 4.9 x10^3uL (1.8-7.7) Lymphocytes # (Auto) 1.4 x10^3/uL (1.0-4.8) Monocytes # (Auto) 0.5 x10^3/uL (0.0-1.1) Eosinophils # (Auto) 0.1 x10^3/uL (0.0-0.7) Basophils # (Auto) 0.0 x10^3/uL (0.0-0.2) Sodium Level 142 mmol/L (136-145) Potassium Level 3.5 mmol/L (3.5-5.1) Chloride Level 105 mmol/L (98-107) Carbon Dioxide Level 27 mmol/L (21-32) Anion Gap 10 (6-14) Blood Urea Nitrogen 21 mg/dL (8-26) Creatinine 2.0 mg/dL (0.7-1.3) Estimated GFR (Cockcroft-Gault) 40.2 Glucose Level 125 mg/dL (70-99) Calcium Level 8.9 mg/dL (8.5-10.1) Medications Active Scripts Medications Dose Route/Sig Max Daily Dose Days Date Category Children's Aspirin (Aspirin) 81 Mg Tab.chew 81 Mg PO DAILY 03/24/16 Reported Hydrocodone-Apap 5-325 (Hydrocodone Bit/Acetaminophen) 1 Each Tablet 1 Tab PO PRN Q6HRS PRN 03/16/16 Rx Tramadol Hcl 50 Mg Tablet 50 Mg PO Q6H PRN 01/04/14 Reported Hydrochlorothiazide Tablet (Hydrochlorothiazide) 25 Mg Tablet 25 Mg PO DAILY 01/04/14 Reported Losartan Potassium 100 Mg Tablet 100 Mg PO DAILY 01/04/14 Reported Crestor (Rosuvastatin Calcium) 40 Mg Tablet 40 Mg PO HS 01/04/14 Reported Amlodipine Besylate 10 Mg Tablet 10 Mg PO DAILY 01/04/14 Reported Carvedilol 25 Mg Tablet 25 Mg PO BID 01/04/14 Reported Tamsulosin Hcl 0.4 Mg Cap.er.24h 0.4 Mg PO DAILY 01/04/14 Reported Niaspan (Niacin) 500 Mg Tab.er.24h 500 Mg PO HS 01/04/14 Reported Impression . 1. Abnormal x-ray compatible with acute systolic heart failure, possible combination with diastolic heart failure. 2. Coronary artery disease with previous stent placement. 3. Clinical presentation compatible with obstructive sleep apnea. 4. Obesity. 5. Hypertension. 6. Chronic kidney disease. 7. Cardiomyopathy may be new Plan . 1. Recommend continue diuresis. 2. Cath today 3. Outpatient polysomnogram. 4. Agree with no need for antibiotics at this time. MAXI SALDANA MD Dec 25, 2016 08:53
[2016-12-25] MEDS: LOSARTAN POTASSIUM 50 MG TABLET. PO SCH ×2 (09:00→09:56)
[2016-12-25] MEDS: amLODIPine BESYLATE 10 MG TABLET PO SCH (09:00)
--- NOTE | 2016-12-25 09:44 | PDOC ---
SAAD MEZA MERLINE 12/25/16 0944: CARDIO Progress Notes Date and Time Date of Service 12/25/16 Time of Evaluation 0930 Subjective Subjective: No Chest Pain, No shortness of breath, No Palpitations Comments: one 5-beat run of NSVT noted overnight on telemetry Vitals Vitals Vital Signs Date Time Temp Pulse Resp B/P (MAP) Pulse Ox O2 Delivery O2 Flow Rate FiO2 12/25/16 09:00 70 117/75 12/25/16 07:00 98.7 18 98 Nasal Cannula 2.0 98.7 Weight Weight [ ] Input and Output Intake and Output Intake and Output 12/25/16 07:00 Intake Total 440 ml Output Total 2825 ml Balance -2385 ml Intake Oral 440 ml Output Urine Total 2825 ml # Voids 1 # Bowel Movements 1 Laboratory Labs Laboratory Tests Test 12/24/16 10:45 12/24/16 15:55 12/25/16 04:00 Troponin I Quantitative 0.043 ng/mL (0.000-0.055) 0.057 ng/mL (0.000-0.055) Thyroid Stimulating Hormone (TSH) 5.313 uIU/mL (0.358-3.74) White Blood Count 6.9 x10^3/uL (4.0-11.0) Red Blood Count 4.45 x10^6/uL (4.30-5.70) Hemoglobin 12.5 g/dL (13.0-17.5) Hematocrit 38.0 % (39.0-53.0) Mean Corpuscular Volume 86 fL (79-100) Mean Corpuscular Hemoglobin 28 pg (25-35) Mean Corpuscular Hemoglobin Concent 33 g/dL (31-37) Red Cell Distribution Width 15.1 % (11.5-14.5) Platelet Count 174 x10^3/uL (140-400) Neutrophils (%) (Auto) 71 % (31-73) Lymphocytes (%) (Auto) 20 % (24-48) Monocytes (%) (Auto) 7 % (0-9) Eosinophils (%) (Auto) 1 % (0-3) Basophils (%) (Auto) 0 % (0-3) Neutrophils # (Auto) 4.9 x10^3uL (1.8-7.7) Lymphocytes # (Auto) 1.4 x10^3/uL (1.0-4.8) Monocytes # (Auto) 0.5 x10^3/uL (0.0-1.1) Eosinophils # (Auto) 0.1 x10^3/uL (0.0-0.7) Basophils # (Auto) 0.0 x10^3/uL (0.0-0.2) Sodium Level 142 mmol/L (136-145) Potassium Level 3.5 mmol/L (3.5-5.1) Chloride Level 105 mmol/L (98-107) Carbon Dioxide Level 27 mmol/L (21-32) Anion Gap 10 (6-14) Blood Urea Nitrogen 21 mg/dL (8-26) Creatinine 2.0 mg/dL (0.7-1.3) Estimated GFR (Cockcroft-Gault) 40.2 Glucose Level 125 mg/dL (70-99) Calcium Level 8.9 mg/dL (8.5-10.1) Free Thyroxine 0.90 ng/dL (0.76-1.46) Physical Exam HEENT: Neck Supple W Full Motion Chest: Symmetric LUNGS: Other (diminished bases ) Heart: S1S2, RRR, murmurs (soft systolic murmur ) Abdomen: Soft N/T Extremities: Other (trace bilateral LE edema ) Neurology: alert, oriented, follow commands Assessment Assessment 1. Acute on chronic systolic heart failure; improved with diuresis 2. Cardiomyopathy; echo revealed LVEF 20-25% 3. CAD; s/p remote stent. 4. Hypertension; controlled with meds 5. CKD 3; Cr now 2.0; nephrology consulted 6. 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 R/b/a discussed with patient and is agreeable. Will plan for later on today. Renal optimization per nephrology. KAITLYN PITTMAN MD 12/25/16 4450: CARDIO Progress Notes Assessment Assessment Patient seen and examined. Agree with IT SUPPORT ENGINEER's assessment and plan. Acute on chronic systolic heart failure better compensated the patient's creatinine has increased. 2-D echo showed LVEF 20-25%. We'll plan for cardiac catheterization once deemed safe from nephrology standpoint. SAAD MEZA APRN Dec 25, 2016 09:44 KAITLYN PITTMAN MD Dec 25, 2016 17:30
--- NOTE | 2016-12-25 09:54 | RAD ---
Examination: Ultrasound kidneys History: History of chronic kidney disease Comparison: None available Findings: The right kidney measures 10.8 x 4.4 x 5.2 cm. The left kidney measures 10.2 x 4.6 x 5.5 cm. The urinary bladder is not well-distended. There is a 4.7 cm cystic structure identified in the right kidney with posterior acoustic enhancement likely a cyst Mild prominent left renal pelvis likely hydronephrosis. Impression: 1. 4.7 cm right renal cyst. 2. Mild left hydronephrosis.
[2016-12-25] MEDS: CARVEDILOL 12.5 MG TABLET. PO SCH ×2 (09:55→17:45)
[2016-12-25] MEDS: TAMSULOSIN 0.4 MG CAP.ER.24H. PO SCH (09:57)
[2016-12-25] MEDS: ASPIRIN CHEWABLE 81 MG TABLET. PO SCH (09:57)
[2016-12-25] MEDS: BENZONATATE 100 MG CAPSULE. PO SCH ×2 (09:57→20:10)
[2016-12-25] MEDS: POTASSIUM CHLORIDE 10 MEQ TABLET.ER. PO SCH ×3 (10:00→17:45)
[2016-12-25 11:00] VITALS: BP 122/67
--- NOTE | 2016-12-25 11:11 | CONS ---
DATE OF CONSULTATION: 12/24/2016 ATTENDING PHYSICIAN: Trav Gastelum M.D. INTEGRITY DIRECTOR PHYSICIAN: Maxi Saldana M.D. REASON FOR CONSULTATION: The patient is seen in pulmonary consultation at the request of Dr. Gastelum for abnormal x-ray and possible pneumonia. HISTORY OF PRESENT ILLNESS: The patient is a 71-year-old who presented with some abdominal pain and shortness of breath. He felt that he had abdominal distension. Part of his workup included CT abdomen and pelvis. CT abdomen revealed ground glass opacities in the lower bases of the lungs. In addition, there was a focal opacity in the right lung base that could be related to pneumonia. I was just consulted. Since his admission, the patient has also been worked up with an echocardiogram revealing ejection fraction of 20-25%. Venous Dopplers of the lower extremities were negative for DVT. Chest x-ray revealed evidence of CHF. The patient denies any prior history of low ejection fraction. He does take a water pill at home. PAST MEDICAL HISTORY: Coronary artery disease with previous stent placement in 2001, hypertension, osteoporosis, chronic renal insufficiency. PAST SURGICAL HISTORY: Status post cholecystectomy and ureteral stenting. FAMILY HISTORY: Coronary artery disease, diabetes, hypertension. SOCIAL HISTORY: He has never smoked. Denies any alcohol intake. REVIEW OF SYSTEMS: A 10-point review was performed that was negative except for sleep hygiene revealing that he snores. His has noticed some apneic spells. The patient awakens unrefreshed from his sleep and he does experience some excessive daytime sleepiness. CURRENT MEDICATION: List was reviewed. ALLERGIES: No known drug allergies. HOME MEDICATIONS: List was reviewed. PHYSICAL EXAMINATION: GENERAL: A 71-year-old gentleman in no respiratory distress, currently on 3 liters. Since admission, he has been afebrile. HEENT: Eyes, the sclerae were nonicteric. NECK: Jugular venous distention was not elevated. No lymphadenopathy. CHEST: Full expansion. LUNGS: Crackles, no wheezes. CARDIOVASCULAR: Regular rate and rhythm with S1, S2, no S3. ABDOMEN: Soft, obese. EXTREMITIES: No clubbing, cyanosis or pitting edema. NEUROLOGIC: The patient was awake and alert following commands. A detailed neuro exam was not performed. Chest x-ray reviewed. CT abdomen reviewed. LABORATORY DATA: Reviewed. White count was normal. Hemoglobin and hematocrit were noted. Electrolytes were noted. BNP was elevated. Troponin was elevated. Cholesterol level was elevated. IMPRESSION: 1. Abnormal x-ray compatible with acute systolic heart failure, possible combination with diastolic heart failure. 2. Coronary artery disease with previous stent placement. 3. Clinical presentation compatible with obstructive sleep apnea. 4. Obesity. 5. Hypertension. 6. Chronic kidney disease. PLAN: 1. Recommend continue diuresis. 2. Follow cardiology input. 3. Outpatient polysomnogram. 4. Agree with no need for antibiotics at this time. I do appreciate the privilege in sharing in the patient's care. MAXI SALDANA MD DR: STEPHANIE/sanam JOB#: [id number] / [id number]
[2016-12-25 15:00] VITALS: BP 116/72
--- NOTE | 2016-12-25 17:32 | PDOC2 ---
CONSULT Date of Consult Date of Consult DATE: 12/25/16 TIME: 17:22 Reason for Consult Reason for Consult: DENNIS/ CKD III Referring Physician Referring Physician: Dr Gastelum/ Dr Jacome Identification/Chief Complaint Chief Complaint SOB Problems: Source Source: Chart review, Patient Past Medical History Cardiovascular: CAD (s/p remote stent ), HTN GI: No pertinent hx Heme/Onc: No pertinent hx Hepatobiliary: No pertinent hx Psych: No pertinent hx Musculoskeletal: Osteoarthritis Rheumatologic: No pertinent hx Infectious disease: No pertinent hx ENT: No pertinent hx Renal/: Chronic renal insuff Endocrine: No pertinent hx Dermatology: No pertinent hx Past Surgical History Past Surgical History: Cholecystectomy, Other (ureteral stenting ) Family History Family History: Coronary Artery Disease, Diabetes, Hypertension Social History No ALCOHOL: none Drugs: None Lives: with Family Current Problem List Problem List Problems Medical Problems: (1) Abdominal pain Status: Acute (2) Community acquired pneumonia Status: Acute (3) Elevated brain natriuretic peptide (BNP) level Status: Acute (4) Hypoxia Status: Acute Current Medications Current Medications Current Medications Sodium Chloride 500 ml @ 500 mls/hr 1X ONCE IV Last administered on 02:11; Start 12/24/16 at 02:30; Stop 12/24/16 at 03:29; Status DC Ondansetron HCl (Zofran) 4 mg 1X ONCE IV Last administered on 12/24/16 02:12 ; Start 12/24/16 at 02:30; Stop 12/24/16 at 02:31; Status DC Fentanyl Citrate (Fentanyl 2ml Vial) 50 mcg PRN Q15MIN PRN IV PAIN GREATER THAN 3/10 Last administered on 12/24/16 02:12; Start 12/24/16 at 02:00; Stop at 07:00; Status DC Albuterol/ Ipratropium (Duoneb) 3 ml 1X ONCE NEB Last administered on 03:18; Start 12/24/16 at 03:30; Stop 12/24/16 at 03:31; Status DC Benzonatate (Tessalon Perle) 100 mg 1X ONCE PO Last administered on 12/24/16 03:30; Start 12/24/16 at 03:30; Stop 12/24/16 at 03:31; Status DC Ceftriaxone Sodium 50 ml @ 100 mls/hr 1X ONCE IV Last administered on 03:31; Start 12/24/16 at 03:30; Stop 12/24/16 at 03:59; Status DC Azithromycin 250 ml @ 250 mls/hr 1X ONCE IV Last administered on 12/24/16 03 :31; Start 12/24/16 at 03:30; Stop 12/24/16 at 04:29; Status DC Ondansetron HCl (Zofran) 4 mg PRN Q8HRS PRN IV NAUSEA/VOMITING; Start 12/24/16 at 04:45; Stop 12/25/16 at 04:44; Status DC Morphine Sulfate 2 mg PRN Q2HR PRN IV SEVERE PAIN; Start 12/24/16 at 04:45; Stop 12/25/16 at 04:44; Status DC Acetaminophen (Tylenol) 650 mg PRN Q4HRS PRN PO FEVER; Start 12/24/16 at 04:45 ; Stop 12/25/16 at 04:44; Status DC Albuterol/ Ipratropium (Duoneb) 3 ml RTQID NEB Last administered on 12/24/16 19:16; Start 12/24/16 at 08:00; Stop 12/25/16 at 07:59; Status DC Furosemide (Lasix) 40 mg 1X ONCE IVP Last administered on 12/24/16 06:30; Start 12/24/16 at 06:00; Stop 12/24/16 at 06:01; Status DC Pneumococcal Polyvalent Vaccine (Do NOT chart on this placeholder) 1 each 1X ONCE MC ; Start 12/24/16 at 09:00; Stop 12/24/16 at 09:01; Status UNV Pneumococcal Polyvalent Vaccine (Pneumovax 23) 0.5 ml ONCE ONCE VAX IM Last administered on 12/24/16 10:25; Start 12/24/16 at 09:00; Stop 12/24/16 at 09:02 ; Status DC Amlodipine Besylate (Norvasc) 10 mg DAILY PO Last administered on 12/24/16 10: 30; Start 12/24/16 at 09:30 Aspirin (Children'S Aspirin) 81 mg DAILY PO Last administered on 12/25/16 09: 57; Start 12/24/16 at 09:30 Hydrochlorothiazide (Hydrodiuril) 25 mg DAILY PO Last administered on 10:30; Start 12/24/16 at 09:30; Stop 12/25/16 at 08:51; Status DC Acetaminophen/ Hydrocodone Bitart (Lortab 5/325) 1 tab PRN Q6HRS PRN PO PAIN; Start 12/24/16 at 09:00 Tamsulosin HCl (Flomax) 0.4 mg DAILY PO Last administered on 12/25/16 09:57; Start 12/24/16 at 09:30 Tramadol HCl (Ultram) 50 mg PRN Q6HRS PRN PO PAIN; Start 12/24/16 at 09:00 Carvedilol (Coreg) 25 mg BIDWMEALS PO Last administered on 12/24/16 17:40; Start 12/24/16 at 09:30; Stop 12/25/16 at 09:44; Status DC Losartan Potassium (Cozaar) 100 mg DAILY PO Last administered on 12/24/16 10: 31; Start 12/24/16 at 09:30; Stop 12/25/16 at 09:44; Status DC Atorvastatin Calcium (Lipitor) 80 mg QHS PO Last administered on 12/24/16 20: 58; Start 12/24/16 at 21:00 Furosemide (Lasix) 40 mg 1X ONCE IVP Last administered on 12/24/16 11:30; Start 12/24/16 at 11:15; Stop 12/24/16 at 11:16; Status DC Benzonatate (Tessalon Perle) 100 mg BID PO Last administered on 12/25/16 09:57 ; Start 12/24/16 at 21:00 Potassium Chloride (Klor-Con) 10 meq TIDAFTMEAL PO Last administered on 14:46; Start 12/25/16 at 09:30 Carvedilol (Coreg) 12.5 mg BIDWMEALS PO Last administered on 12/25/16 09:55; Start 12/25/16 at 10:00 Losartan Potassium (Cozaar) 50 mg DAILY PO Last administered on 12/25/16 09:56 ; Start 12/25/16 at 10:00 Active Scripts Active Hydrocodone-Apap 5-325 (Hydrocodone Bit/Acetaminophen) 1 Each Tablet 1 Tab PO PRN Q6HRS PRN Reported Children's Aspirin (Aspirin) 81 Mg Tab.chew 81 Mg PO DAILY Tramadol Hcl 50 Mg Tablet 50 Mg PO Q6H PRN Hydrochlorothiazide Tablet (Hydrochlorothiazide) 25 Mg Tablet 25 Mg PO DAILY Losartan Potassium 100 Mg Tablet 100 Mg PO DAILY Crestor (Rosuvastatin Calcium) 40 Mg Tablet 40 Mg PO HS Amlodipine Besylate 10 Mg Tablet 10 Mg PO DAILY Carvedilol 25 Mg Tablet 25 Mg PO BID Tamsulosin Hcl 0.4 Mg Cap.er.24h 0.4 Mg PO DAILY Niaspan (Niacin) 500 Mg Tab.er.24h 500 Mg PO HS Allergies Allergies: Coded Allergies: No Known Drug Allergies (Unverified , 11/13/13) ROS Review of System GEN: no Fevers no Chills EYES: no Visual Complaints ENT: no EN Drainage no Hearing deficiets CVS: no Orthopnea no CP RESP: + SOB - OA no current ROGERS (not ambulated though) GI: no Nausea no Vomiting : occ Dysuria occ Urgency Freq and incomplete emptying HEME: no easy bruising no Palp Ly Nodes NEURO no Focal Weakness no Sz PSYCH: no Suicidal Ideation no Depression SKIN: no Rashes ENDO: no Polyuria or Polydipsia no Hot/Cold Intolerance MU SK: no Arthraigia no Myalgia Physical Exam Physical Exam General Appearance: Awake Alert Oriented x 3 In no Distress Eyes: VIsion Unchanged Conjunctiva Normal EN: No EN Drainage Mucous Memb. moist Neck: no JVD min JVP Supple no Thyromegaly CVS: S1 S2 ? Murmur No Gallop No Rub no Edema Resp: rare if any Rales no Rhonchi no Acc. Muscle use GI: BAS +ve NO Bruit Non Tender Non Distended : no CVA tenderness; no Suprapubic Tenderness SKIN: no Rashes Breast Exam deferred Mu.Sk: Adequate ROM no Muscle Atrophy Heme: Unable to palpate Obvious LAD no Splenomegaly NEURO: Good Strength and Tone Cranial Nerves II - XII grossly intact Psych: not Depressed no Active hallucination Vital Signs Vital Signs Date Time Temp Pulse Resp B/P (MAP) Pulse Ox O2 Delivery O2 Flow Rate FiO2 12/25/16 15:00 98.8 67 18 116/72 (87) 97 Nasal Cannula 2.0 98.8 Assessment & Plan DENNIS : Decompensation from cardiac standpoint, vs due to Loss of Function on Left (Obstructive Uropahty) Current FLuid and E-lyte status does not necessitate emergent need for Dialysis. Will re-evaluate for Dialysis in am CKD III - ? non-functioning Lt Kidney - most recent OP Creat is 1.[address] Mix office CHF - Diuresis to optimize Cardio-Resp status ? CAD - needs [facility] post stress test- NAC for now. HTN: Current BP meds reviewed. See orders for changes. Discussed Plan of Care and prognosis etc. at length with family. Labs Labs Laboratory Tests Test 12/24/16 01:45 12/24/16 03:35 12/24/16 10:45 12/24/16 15:55 White Blood Count 5.6 x10^3/uL (4.0-11.0) Red Blood Count 4.90 x10^6/uL (4.30-5.70) Hemoglobin 13.6 g/dL (13.0-17.5) Hematocrit 42.4 % (39.0-53.0) Mean Corpuscular Volume 86 fL (79-100) Mean Corpuscular Hemoglobin 28 pg (25-35) Mean Corpuscular Hemoglobin Concent 32 g/dL (31-37) Red Cell Distribution Width 15.2 % (11.5-14.5) Platelet Count 183 x10^3/uL (140-400) Neutrophils (%) (Auto) 45 % (31-73) Lymphocytes (%) (Auto) 44 % (24-48) Monocytes (%) (Auto) 8 % (0-9) Eosinophils (%) (Auto) 4 % (0-3) Basophils (%) (Auto) 0 % (0-3) Neutrophils # (Auto) 2.5 x10^3uL (1.8-7.7) Lymphocytes # (Auto) 2.4 x10^3/uL (1.0-4.8) Monocytes # (Auto) 0.4 x10^3/uL (0.0-1.1) Eosinophils # (Auto) 0.2 x10^3/uL (0.0-0.7) Basophils # (Auto) 0.0 x10^3/uL (0.0-0.2) Sodium Level 143 mmol/L (136-145) Potassium Level 3.6 mmol/L (3.5-5.1) Chloride Level 107 mmol/L (98-107) Carbon Dioxide Level 27 mmol/L (21-32) Anion Gap 9 (6-14) Blood Urea Nitrogen 12 mg/dL (8-26) Creatinine 1.5 mg/dL (0.7-1.3) Estimated GFR (Cockcroft-Gault) 56.0 BUN/Creatinine Ratio 8 (6-20) Glucose Level 113 mg/dL (70-99) Calcium Level 9.3 mg/dL (8.5-10.1) Total Bilirubin 0.4 mg/dL (0.2-1.0) Aspartate Amino Transf (AST/SGOT) 20 U/L (15-37) Alanine Aminotransferase (ALT/SGPT) 25 U/L (16-63) Alkaline Phosphatase 65 U/L (46-116) Troponin I Quantitative 0.037 ng/mL (0.000-0.055) 0.043 ng/mL (0.000-0.055) 0.057 ng/mL (0.000-0.055) ZU-[id number]-X-Type Natriuretic Peptide 871 pg/mL (0-124) Total Protein 7.6 g/dL (6.4-8.2) Albumin 3.9 g/dL (3.4-5.0) Albumin/Globulin Ratio 1.1 (1.0-1.7) Triglycerides Level 134 mg/dL (0-150) Cholesterol Level 282 mg/dL (0-200) LDL Cholesterol, Calculated 201 mg/dL (0-100) VLDL Cholesterol, Calculated 27 mg/dL (0-40) Non-HDL Cholesterol Calculated 228 mg/dL (0-129) HDL Cholesterol 54 mg/dL (40-60) Cholesterol/HDL Ratio 5.2 Lipase 312 U/L (73-393) Urine Collection Type Unknown Urine Color Yellow Urine Clarity Clear Urine pH 6.0 Urine Specific [place] 1.015 Urine Protein Negative mg/dL (NEG-TRACE) Urine Glucose (UA) Negative mg/dL (NEG) Urine Ketones (Stick) Negative mg/dL (NEG) Urine Blood Moderate (NEG) Urine Nitrite Negative (NEG) Urine Bilirubin Negative (NEG) Urine Urobilinogen Dipstick 0.2 mg/dL (0.2 mg/dL) Urine Leukocyte Esterase Small (NEG) Urine RBC 6-10 /HPF (0-2) Urine WBC 1-4 /HPF (0-4) Urine Squamous Epithelial Cells Occ /LPF Urine Bacteria 0 /HPF (0-FEW) Urine Mucus Slight /LPF Thyroid Stimulating Hormone (TSH) 5.313 uIU/mL (0.358-3.74) Test 12/25/16 04:00 White Blood Count 6.9 x10^3/uL (4.0-11.0) Red Blood Count 4.45 x10^6/uL (4.30-5.70) Hemoglobin 12.5 g/dL (13.0-17.5) Hematocrit 38.0 % (39.0-53.0) Mean Corpuscular Volume 86 fL (79-100) Mean Corpuscular Hemoglobin 28 pg (25-35) Mean Corpuscular Hemoglobin Concent 33 g/dL (31-37) Red Cell Distribution Width 15.1 % (11.5-14.5) Platelet Count 174 x10^3/uL (140-400) Neutrophils (%) (Auto) 71 % (31-73) Lymphocytes (%) (Auto) 20 % (24-48) Monocytes (%) (Auto) 7 % (0-9) Eosinophils (%) (Auto) 1 % (0-3) Basophils (%) (Auto) 0 % (0-3) Neutrophils # (Auto) 4.9 x10^3uL (1.8-7.7) Lymphocytes # (Auto) 1.4 x10^3/uL (1.0-4.8) Monocytes # (Auto) 0.5 x10^3/uL (0.0-1.1) Eosinophils # (Auto) 0.1 x10^3/uL (0.0-0.7) Basophils # (Auto) 0.0 x10^3/uL (0.0-0.2) Sodium Level 142 mmol/L (136-145) Potassium Level 3.5 mmol/L (3.5-5.1) Chloride Level 105 mmol/L (98-107) Carbon Dioxide Level 27 mmol/L (21-32) Anion Gap 10 (6-14) Blood Urea Nitrogen 21 mg/dL (8-26) Creatinine 2.0 mg/dL (0.7-1.3) Estimated GFR (Cockcroft-Gault) 40.2 Glucose Level 125 mg/dL (70-99) Calcium Level 8.9 mg/dL (8.5-10.1) Free Thyroxine 0.90 ng/dL (0.76-1.46) Laboratory Tests Test 12/25/16 04:00 White Blood Count 6.9 x10^3/uL (4.0-11.0) Red Blood Count 4.45 x10^6/uL (4.30-5.70) Hemoglobin 12.5 g/dL (13.0-17.5) Hematocrit 38.0 % (39.0-53.0) Mean Corpuscular Volume 86 fL (79-100) Mean Corpuscular Hemoglobin 28 pg (25-35) Mean Corpuscular Hemoglobin Concent 33 g/dL (31-37) Red Cell Distribution Width 15.1 % (11.5-14.5) Platelet Count 174 x10^3/uL (140-400) Neutrophils (%) (Auto) 71 % (31-73) Lymphocytes (%) (Auto) 20 % (24-48) Monocytes (%) (Auto) 7 % (0-9) Eosinophils (%) (Auto) 1 % (0-3) Basophils (%) (Auto) 0 % (0-3) Neutrophils # (Auto) 4.9 x10^3uL (1.8-7.7) Lymphocytes # (Auto) 1.4 x10^3/uL (1.0-4.8) Monocytes # (Auto) 0.5 x10^3/uL (0.0-1.1) Eosinophils # (Auto) 0.1 x10^3/uL (0.0-0.7) Basophils # (Auto) 0.0 x10^3/uL (0.0-0.2) Sodium Level 142 mmol/L (136-145) Potassium Level 3.5 mmol/L (3.5-5.1) Chloride Level 105 mmol/L (98-107) Carbon Dioxide Level 27 mmol/L (21-32) Anion Gap 10 (6-14) Blood Urea Nitrogen 21 mg/dL (8-26) Creatinine 2.0 mg/dL (0.7-1.3) Estimated GFR (Cockcroft-Gault) 40.2 Glucose Level 125 mg/dL (70-99) Calcium Level 8.9 mg/dL (8.5-10.1) Free Thyroxine 0.90 ng/dL (0.76-1.46) Images Images The right kidney measures 10.8 x 4.4 x 5.2 cm. The left kidney measures 10.2 x 4.6 x 5.5 cm. The urinary bladder is not well-distended. There is a 4.7 cm cystic structure identified in the right kidney with posterior acoustic enhancement likely a cyst Mild prominent left renal pelvis likely hydronephrosis. Impression: 1. 4.7 cm right renal cyst. 2. Mild left hydronephrosis. Recent Abd CT Scan; Moderate calcific atherosclerosis. Multiple left greater than right renal stones. Left nephroureteral stent. Mild left hydronephrosis. 38 mm right renal cystic lesion again seen. No right hydronephrosis. Bladder is partially distended. CONTRERAS MILLER MD Dec 25, 2016 17:32
[2016-12-25] MEDS ORDERED: MAGNESIUM SULFATE 2GM 50 ML IV PRN (17:45)
[2016-12-25 18:28] LABS: BILIRUBIN,URINE NEGATIVE (NEG); GLUCOSE,URINE NEGATIVE (NEG); NITRITE,URINE NEGATIVE (NEG); PH,URINE 5.5; PROTEIN,URINE NEGATIVE (NEG-TRACE); UROBILINOGEN,URINE 0.2 mg/dL (0.2 mg/dL)
[2016-12-25 18:42] LABS: BACTERIA,URINE 0 /HPF (0-FEW); RBC,URINE TNTC /HPF (0-2); SQUAMOUS EPITHELIAL CELL,UR FEW /LPF; WBC,URINE >40 /HPF (0-4)
[2016-12-25 19:00] VITALS: BP 116/74
[2016-12-25] MEDS: ATORVASTATIN CALCIUM 40 MG TABLET. PO SCH (20:10)
[2016-12-25] MEDS: traMADol 50 MG TABLET PO PRN (20:10)
[2016-12-25] MEDS: ACETYLCYSTEINE 20% ORAL SOLN 600 MG/3 ML SYRINGE. PO SCH (20:11)
[2016-12-25 22:52] VITALS: BP 108/64
[2016-12-26] VITALS (7 sets, daily range): BP systolic 91–119; BP diastolic 55–72
[2016-12-26] MEDS: traMADol 50 MG TABLET PO PRN ×2 (03:12→19:58)
[2016-12-26 05:47] LABS: ALBUMIN 3.2 g/dL (3.4-5.0); CALCIUM 8.6 mg/dL (8.5-10.1); CREATININE 1.7 mg/dL (0.7-1.3); GFR 48.5; PHOSPHORUS 3.6 mg/dL (2.6-4.7); POTASSIUM 3.3 mmol/L (3.5-5.1)
[2016-12-26] MEDS: ASPIRIN CHEWABLE 81 MG TABLET. PO SCH (08:20)
[2016-12-26] MEDS: CARVEDILOL 12.5 MG TABLET. PO SCH ×2 (08:20→17:46)
[2016-12-26] MEDS: amLODIPine BESYLATE 10 MG TABLET PO SCH (08:20)
[2016-12-26] MEDS: LOSARTAN POTASSIUM 50 MG TABLET. PO SCH (08:21)
--- NOTE | 2016-12-26 08:38 | PDOC ---
Provider Note Provider Note vss, no orthopnea- bp lower so will reduce norvasc- T4 ok, creat down 1.7 pre cath LAURENCE MILLER MD Dec 26, 2016 08:38
[2016-12-26] MEDS ORDERED: FUROSEMIDE 40 MG/4 ML VIAL. IVP ONE (09:15)
--- NOTE | 2016-12-26 09:48 | PDOC ---
PULMONARY PROGRESS NOTES Subjective NO INCREASE SOA Vitals Vital Signs Date Time Temp Pulse Resp B/P (MAP) Pulse Ox O2 Delivery O2 Flow Rate FiO2 12/26/16 08:21 67 113/71 12/26/16 07:30 98.4 18 99 Nasal Cannula 2.0 98.4 ROS: No Nausea, No Chest Pain, No Abdominal Pain, No Increase Cough Lungs: Clear Cardiovascular: S1, S2 Abdomen: Soft Neuro Exam: Alert Extremities: No Edema Labs Laboratory Tests Test 12/24/16 10:45 12/24/16 15:55 12/25/16 04:00 12/25/16 17:40 Troponin I Quantitative 0.043 ng/mL (0.000-0.055) 0.057 ng/mL (0.000-0.055) Thyroid Stimulating Hormone (TSH) 5.313 uIU/mL (0.358-3.74) White Blood Count 6.9 x10^3/uL (4.0-11.0) Red Blood Count 4.45 x10^6/uL (4.30-5.70) Hemoglobin 12.5 g/dL (13.0-17.5) Hematocrit 38.0 % (39.0-53.0) Mean Corpuscular Volume 86 fL (79-100) Mean Corpuscular Hemoglobin 28 pg (25-35) Mean Corpuscular Hemoglobin Concent 33 g/dL (31-37) Red Cell Distribution Width 15.1 % (11.5-14.5) Platelet Count 174 x10^3/uL (140-400) Neutrophils (%) (Auto) 71 % (31-73) Lymphocytes (%) (Auto) 20 % (24-48) Monocytes (%) (Auto) 7 % (0-9) Eosinophils (%) (Auto) 1 % (0-3) Basophils (%) (Auto) 0 % (0-3) Neutrophils # (Auto) 4.9 x10^3uL (1.8-7.7) Lymphocytes # (Auto) 1.4 x10^3/uL (1.0-4.8) Monocytes # (Auto) 0.5 x10^3/uL (0.0-1.1) Eosinophils # (Auto) 0.1 x10^3/uL (0.0-0.7) Basophils # (Auto) 0.0 x10^3/uL (0.0-0.2) Sodium Level 142 mmol/L (136-145) Potassium Level 3.5 mmol/L (3.5-5.1) Chloride Level 105 mmol/L (98-107) Carbon Dioxide Level 27 mmol/L (21-32) Anion Gap 10 (6-14) Blood Urea Nitrogen 21 mg/dL (8-26) Creatinine 2.0 mg/dL (0.7-1.3) Estimated GFR (Cockcroft-Gault) 40.2 Glucose Level 125 mg/dL (70-99) Calcium Level 8.9 mg/dL (8.5-10.1) Free Thyroxine 0.90 ng/dL (0.76-1.46) Urine Collection Type Unknown Urine Color Yellow Urine Clarity Clear Urine pH 5.5 Urine Specific [place] 1.015 Urine Protein Negative mg/dL (NEG-TRACE) Urine Glucose (UA) Negative mg/dL (NEG) Urine Ketones (Stick) Negative mg/dL (NEG) Urine Blood Large (NEG) Urine Nitrite Negative (NEG) Urine Bilirubin Negative (NEG) Urine Urobilinogen Dipstick 0.2 mg/dL (0.2 mg/dL) Urine Leukocyte Esterase Moderate (NEG) Urine RBC Tntc /HPF (0-2) Urine WBC >40 /HPF (0-4) Urine Squamous Epithelial Cells Few /LPF Urine Bacteria 0 /HPF (0-FEW) Urine Hyaline Casts Few /HPF Urine Mucus Slight /LPF Test 12/26/16 04:00 Hemoglobin 12.2 g/dL (13.0-17.5) Sodium Level 141 mmol/L (136-145) Potassium Level 3.3 mmol/L (3.5-5.1) Chloride Level 104 mmol/L (98-107) Carbon Dioxide Level 27 mmol/L (21-32) Anion Gap 10 (6-14) Blood Urea Nitrogen 21 mg/dL (8-26) Creatinine 1.7 mg/dL (0.7-1.3) Estimated GFR (Cockcroft-Gault) 48.5 Glucose Level 98 mg/dL (70-99) Calcium Level 8.6 mg/dL (8.5-10.1) Phosphorus Level 3.6 mg/dL (2.6-4.7) Magnesium Level 2.3 mg/dL (1.8-2.4) Albumin 3.2 g/dL (3.4-5.0) Laboratory Tests Test 12/25/16 17:40 12/26/16 04:00 Urine Collection Type Unknown Urine Color Yellow Urine Clarity Clear Urine pH 5.5 Urine Specific [place] 1.015 Urine Protein Negative mg/dL (NEG-TRACE) Urine Glucose (UA) Negative mg/dL (NEG) Urine Ketones (Stick) Negative mg/dL (NEG) Urine Blood Large (NEG) Urine Nitrite Negative (NEG) Urine Bilirubin Negative (NEG) Urine Urobilinogen Dipstick 0.2 mg/dL (0.2 mg/dL) Urine Leukocyte Esterase Moderate (NEG) Urine RBC Tntc /HPF (0-2) Urine WBC >40 /HPF (0-4) Urine Squamous Epithelial Cells Few /LPF Urine Bacteria 0 /HPF (0-FEW) Urine Hyaline Casts Few /HPF Urine Mucus Slight /LPF Hemoglobin 12.2 g/dL (13.0-17.5) Sodium Level 141 mmol/L (136-145) Potassium Level 3.3 mmol/L (3.5-5.1) Chloride Level 104 mmol/L (98-107) Carbon Dioxide Level 27 mmol/L (21-32) Anion Gap 10 (6-14) Blood Urea Nitrogen 21 mg/dL (8-26) Creatinine 1.7 mg/dL (0.7-1.3) Estimated GFR (Cockcroft-Gault) 48.5 Glucose Level 98 mg/dL (70-99) Calcium Level 8.6 mg/dL (8.5-10.1) Phosphorus Level 3.6 mg/dL (2.6-4.7) Magnesium Level 2.3 mg/dL (1.8-2.4) Albumin 3.2 g/dL (3.4-5.0) Medications Active Scripts Medications Dose Route/Sig Max Daily Dose Days Date Category Children's Aspirin (Aspirin) 81 Mg Tab.chew 81 Mg PO DAILY 03/24/16 Reported Hydrocodone-Apap 5-325 (Hydrocodone Bit/Acetaminophen) 1 Each Tablet 1 Tab PO PRN Q6HRS PRN 03/16/16 Rx Tramadol Hcl 50 Mg Tablet 50 Mg PO Q6H PRN 01/04/14 Reported Hydrochlorothiazide Tablet (Hydrochlorothiazide) 25 Mg Tablet 25 Mg PO DAILY 01/04/14 Reported Losartan Potassium 100 Mg Tablet 100 Mg PO DAILY 01/04/14 Reported Crestor (Rosuvastatin Calcium) 40 Mg Tablet 40 Mg PO HS 01/04/14 Reported Amlodipine Besylate 10 Mg Tablet 10 Mg PO DAILY 01/04/14 Reported Carvedilol 25 Mg Tablet 25 Mg PO BID 01/04/14 Reported Tamsulosin Hcl 0.4 Mg Cap.er.24h 0.4 Mg PO DAILY 01/04/14 Reported Niaspan (Niacin) 500 Mg Tab.er.24h 500 Mg PO HS 01/04/14 Reported Impression . 1. Abnormal x-ray compatible with acute systolic heart failure, possible combination with diastolic heart failure. 2. Coronary artery disease with previous stent placement. 3. Clinical presentation compatible with obstructive sleep apnea. 4. Obesity. 5. Hypertension. 6. Chronic kidney disease. 7. Cardiomyopathy may be new Plan . resp status is compensated 1. Recommend continue diuresis. 2. Follow nephro input 3. Outpatient polysomnogram. 4. Agree with no need for antibiotics at this time. MAXI SALDANA MD Dec 26, 2016 09:48
[2016-12-26] MEDS: ACETYLCYSTEINE 20% ORAL SOLN 600 MG/3 ML SYRINGE. PO SCH ×2 (10:25→19:58)
--- NOTE | 2016-12-26 10:54 | PDOC ---
SUBJECTIVE ROS DENNIS/ CKD III Doign and feeling OK Overall CVS: no Orthopnea, no CP RESP: no SOB, no ROGERS GI: no Nausea, no Vomiting : no Dysuria, occ Urgency OBJECTIVE Vital Signs Vital Signs Date Time Temp Pulse Resp B/P (MAP) Pulse Ox O2 Delivery O2 Flow Rate FiO2 12/26/16 08:21 67 113/71 12/26/16 07:30 98.4 18 99 Nasal Cannula 2.0 98.4 I & 0 Intake and Output 12/26/16 07:00 Intake Total 940 ml Output Total 775 ml Balance 165 ml Intake Oral 940 ml Output Urine Total 775 ml # Voids 1 # Bowel Movements 1 PHYSICAL EXAM Physical Exam General Appearance: Awake Alert Oriented x 3 In no Distress Eyes: Vision Unchanged Conjunctiva Normal EN: No EN Drainage Mucous Memb. moist Neck: no JVD min JVP Supple no Thyromegaly CVS: S1 S2 ? Murmur No Gallop No Rub no Edema Resp: rare if any Rales no Rhonchi no Acc. Muscle use GI: BS +ve NO Bruit Non Tender Non Distended : no CVA tenderness; no Suprapubic Tenderness Assessment & Plan DENNIS : Little better today; most likely Decompensation from cardiac standpoint, vs due to Loss of Function on Left (Obstructive Uropahty) Current FLuid and E -lyte status does not necessitate emergent need for Dialysis. Will re-evaluate for Dialysis in am CKD III - ? non-functioning Lt Kidney - most recent OP Creat is 1.[address] Mix office CHF - Diuresis to optimize Cardio-Resp status if needed. Currently he seems well compensated - will check CXR - if still wet then may need ionotropes to maintain renal blood flow until after LHC ? CAD - needs [facility] post stress test- NAC for now as ordered low K - replace as ordered; Mag is OK so far lowish UO - watch trend - may need ionotropes to maintain renal blood flow HTN: Current BP meds reviewed. See orders for changes. H/o stones and now s/p Ureteral stenting in 03/[address] Veronica who has since closed his practice. No URO coverage avail currently - await Nuc MEd Renal scan for now Discussed Plan of Care and prognosis etc. 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 Discussed risk of DENNIS and possibly Needing HD thereafter. COMMENT/RELEVANT DATA Meds Current Medications Medications (Trade) Dose Ordered Sig/Umu Start Time Stop Time Status Last Admin Dose Admin Acetaminophen (Tylenol) 650 mg PRN Q4HRS PRN 12/24/16 04:45 12/25/16 04:44 DC Acetaminophen/ Hydrocodone Bitart (Lortab 5/325) 1 tab PRN Q6HRS PRN 12/24/16 09:00 Acetylcysteine (Mucomyst 20% Oral Solution) 1,200 mg BID 12/25/16 21:00 12/27/16 20:59 12/26/16 10:25 1,200 MG Albuterol/ Ipratropium (Duoneb) 3 ml RTQID 12/24/16 08:00 12/25/16 07:59 DC 12/24/16 19:16 3 ML Amlodipine Besylate (Norvasc) 5 mg DAILY 12/27/16 09:00 Aspirin (Children'S Aspirin) 81 mg DAILY 12/24/16 09:30 12/26/16 08:20 81 MG Atorvastatin Calcium (Lipitor) 80 mg QHS 12/24/16 21:00 12/25/16 20:10 80 MG Azithromycin 250 ml @ 250 mls/hr 1X ONCE 12/24/16 03:30 12/24/16 04:29 DC 12/24/16 03:31 250 MLS/HR Benzonatate (Tessalon Perle) 100 mg BID 12/24/16 21:00 12/25/16 20:10 100 MG Carvedilol (Coreg) 12.5 mg BIDWMEALS 12/25/16 10:00 12/26/16 08:20 12.5 MG Ceftriaxone Sodium 50 ml @ 100 mls/hr 1X ONCE 12/24/16 03:30 12/24/16 03:59 DC 12/24/16 03:31 100 MLS/HR Fentanyl Citrate (Fentanyl 2ml Vial) 50 mcg PRN Q15MIN PRN 12/24/16 02:00 12/24/16 07:00 DC 12/24/16 02:12 50 MCG Furosemide (Lasix) 40 mg ONCE ONCE 12/26/16 09:15 12/26/16 09:16 DC 12/26/16 10:10 40 MG Hydrochlorothiazide (Hydrodiuril) 25 mg DAILY 12/24/16 09:30 12/25/16 08:51 DC 12/24/16 10:30 25 MG Losartan Potassium (Cozaar) 50 mg DAILY 12/25/16 10:00 12/26/16 08:21 50 MG Magnesium Sulfate/ Dextrose 50 ml @ 25 mls/hr PRN DAILY PRN 12/25/16 17:45 Morphine Sulfate 2 mg PRN Q2HR PRN 12/24/16 04:45 12/25/16 04:44 DC Ondansetron HCl (Zofran) 4 mg PRN Q8HRS PRN 12/24/16 04:45 12/25/16 04:44 DC Pneumococcal Polyvalent Vaccine (Do NOT chart on this placeholder) 1 each 1X ONCE 12/24/16 09:00 12/24/16 09:01 UNV Pneumococcal Polyvalent Vaccine (Pneumovax 23) 0.5 ml ONCE ONCE 12/24/16 09:00 12/24/16 09:02 DC 12/24/16 10:25 0.5 ML Potassium Chloride (Klor-Con) 10 meq TIDAFTMEAL 12/25/16 09:30 12/25/16 17:45 10 MEQ Sodium Chloride 500 ml @ 500 mls/hr 1X ONCE 12/24/16 02:30 12/24/16 03:29 DC 12/24/16 02:11 500 MLS/HR Tamsulosin HCl (Flomax) 0.4 mg DAILY 12/24/16 09:30 12/25/16 09:57 0.4 MG Tramadol HCl (Ultram) 50 mg PRN Q6HRS PRN 12/24/16 09:00 12/26/16 03:12 50 MG Lab Laboratory Tests Test 12/25/16 17:40 12/26/16 04:00 Urine Collection Type Unknown Urine Color Yellow Urine Clarity Clear Urine pH 5.5 Urine Specific [place] 1.015 Urine Protein Negative mg/dL (NEG-TRACE) Urine Glucose (UA) Negative mg/dL (NEG) Urine Ketones (Stick) Negative mg/dL (NEG) Urine Blood Large (NEG) Urine Nitrite Negative (NEG) Urine Bilirubin Negative (NEG) Urine Urobilinogen Dipstick 0.2 mg/dL (0.2 mg/dL) Urine Leukocyte Esterase Moderate (NEG) Urine RBC Tntc /HPF (0-2) Urine WBC >40 /HPF (0-4) Urine Squamous Epithelial Cells Few /LPF Urine Bacteria 0 /HPF (0-FEW) Urine Hyaline Casts Few /HPF Urine Mucus Slight /LPF Hemoglobin 12.2 g/dL (13.0-17.5) Sodium Level 141 mmol/L (136-145) Potassium Level 3.3 mmol/L (3.5-5.1) Chloride Level 104 mmol/L (98-107) Carbon Dioxide Level 27 mmol/L (21-32) Anion Gap 10 (6-14) Blood Urea Nitrogen 21 mg/dL (8-26) Creatinine 1.7 mg/dL (0.7-1.3) Estimated GFR (Cockcroft-Gault) 48.5 Glucose Level 98 mg/dL (70-99) Calcium Level 8.6 mg/dL (8.5-10.1) Phosphorus Level 3.6 mg/dL (2.6-4.7) Magnesium Level 2.3 mg/dL (1.8-2.4) Albumin 3.2 g/dL (3.4-5.0) CONTRERAS MILLER MD Dec 26, 2016 10:54
[2016-12-26] MEDS: POTASSIUM CHLORIDE 10 MEQ TABLET.ER. PO SCH ×3 (11:01→17:46)
[2016-12-26] MEDS: TAMSULOSIN 0.4 MG CAP.ER.24H. PO SCH (11:01)
[2016-12-26] MEDS: BENZONATATE 100 MG CAPSULE. PO SCH ×2 (11:01→19:58)
--- NOTE | 2016-12-26 11:05 | PDOC ---
SAAD MEZA CAR DISPATCHER 12/26/16 1105: CARDIO Progress Notes Date and Time Date of Service 12/26/16 Time of Evaluation 1045 Subjective Subjective: No Chest Pain, No shortness of breath, No Palpitations Comments: no acute events overnight on tele Vitals Vitals Vital Signs Date Time Temp Pulse Resp B/P (MAP) Pulse Ox O2 Delivery O2 Flow Rate FiO2 12/26/16 08:21 67 113/71 12/26/16 08:00 Nasal Cannula 2.0 12/26/16 07:30 98.4 18 99 98.4 Weight Weight [ ] Input and Output Intake and Output Intake and Output 12/26/16 07:00 Intake Total 940 ml Output Total 775 ml Balance 165 ml Intake Oral 940 ml Output Urine Total 775 ml # Voids 1 # Bowel Movements 1 Laboratory Labs Laboratory Tests Test 12/25/16 17:40 12/26/16 04:00 Urine Collection Type Unknown Urine Color Yellow Urine Clarity Clear Urine pH 5.5 Urine Specific [place] 1.015 Urine Protein Negative mg/dL (NEG-TRACE) Urine Glucose (UA) Negative mg/dL (NEG) Urine Ketones (Stick) Negative mg/dL (NEG) Urine Blood Large (NEG) Urine Nitrite Negative (NEG) Urine Bilirubin Negative (NEG) Urine Urobilinogen Dipstick 0.2 mg/dL (0.2 mg/dL) Urine Leukocyte Esterase Moderate (NEG) Urine RBC Tntc /HPF (0-2) Urine WBC >40 /HPF (0-4) Urine Squamous Epithelial Cells Few /LPF Urine Bacteria 0 /HPF (0-FEW) Urine Hyaline Casts Few /HPF Urine Mucus Slight /LPF Hemoglobin 12.2 g/dL (13.0-17.5) Sodium Level 141 mmol/L (136-145) Potassium Level 3.3 mmol/L (3.5-5.1) Chloride Level 104 mmol/L (98-107) Carbon Dioxide Level 27 mmol/L (21-32) Anion Gap 10 (6-14) Blood Urea Nitrogen 21 mg/dL (8-26) Creatinine 1.7 mg/dL (0.7-1.3) Estimated GFR (Cockcroft-Gault) 48.5 Glucose Level 98 mg/dL (70-99) Calcium Level 8.6 mg/dL (8.5-10.1) Phosphorus Level 3.6 mg/dL (2.6-4.7) Magnesium Level 2.3 mg/dL (1.8-2.4) Albumin 3.2 g/dL (3.4-5.0) Microbiology Micro Microbiology 12/24/16 Urine Culture - Preliminary, Resulted 12/24/16 Urine Culture Result 1 (JAMMIE) - Preliminary, Resulted Physical Exam HEENT: Neck Supple W Full Motion Chest: Symmetric LUNGS: Other (diminished bases ) Heart: S1S2, RRR, murmurs (soft systolic murmur ) Abdomen: Soft N/T Extremities: Other (trace bilateral LE edema ) Neurology: alert, oriented, follow commands Assessment Assessment 1. Acute on chronic systolic heart failure; improved with diuresis. compensated 2. Cardiomyopathy; echo revealed LVEF 20-25% 3. CAD; s/p remote stent. 4. Hypertension; controlled with meds 5. CKD 3; Cr now 1.7; nephrology following. Nuc Med renal scan pending 6. Hyperlipidemia 7. Obstructive uropathy; s/p ureteral stenting Recommendations Compensated; no further aggressive diuresis warranted at this time. Consider adding low-dose oral diuretic for maintenance Will proceed with cardiac cath later this week, to r/o ischemic etiology, once cleared by renal Supportive care Continue renal optimization per nephrology. KAITLYN PITTMAN MD 12/26/16 1633: CARDIO Progress Notes Assessment Assessment Patient seen and examined. Agree with WASHHOUSE WORKER's assessment and plan. Acute on chronic systolic heart failure better compensated. Plan for cardiac catheterization when okay from nephrology standpoint, possibly Saturday. SAAD MEZA APRN Dec 26, 2016 11:05 KAITLYN PITTMAN MD Dec 26, 2016 16:33
--- NOTE | 2016-12-26 12:31 | RAD ---
Radionuclide renal scan, 12/25/2016: History: Acute renal insufficiency, left hydronephrosis, renal stones Imaging of the kidneys was performed following IV injection of 11.0 mCi of technetium 99m MAG3. 15 minutes into the exam the patient was also injected with 40 mg of Lasix. The dynamic flow study demonstrates prompt symmetric perfusion of both kidneys. There is prompt uptake of the radionuclide by both kidneys. On the left, there is increasing activity centrally in the kidney throughout the study. There is very little if any washout from the left renal collecting system despite the administration of Lasix. On the right, there is initially increased activity in the upper portion of the collecting system, probably due to compression of the lower portion of the right collecting system by a known renal cyst. The collecting system activity on the right largely clears during the exam. There is only minimal parenchymal retention of activity bilaterally on the delayed images. IMPRESSION: Left hydronephrosis with evidence of active obstruction.
--- NOTE | 2016-12-26 14:14 | CONS ---
DATE OF CONSULTATION: PRIMARY PHYSICIAN: Trav Gastelum M.D. REASON FOR CONSULTATION: Acute renal failure. HISTORY OF PRESENT ILLNESS: The patient is a 71-year-old -[place] gentleman followed by Dr. Gastelum. He is known to have coronary artery disease, status post stenting about 10 years ago by his reports. His most recent creatinines available in our system show he runs about 1.7 as recently as 03/2016, this is right around the time when he had urethral stent placed to his left kidney for kidney stones. He was told this stone was too high for removal and that he would need a stent. He, however, does not recollect having the stent replaced or removed at any point of time. His CT scan from this visit show that he does have the stent in place. The patient presented to the ER with complaints of shortness of breath. He was noted to have cardiomegaly and possible congestive heart failure with widened mediastinum, creatinine of 1.5. He underwent diuresis and creatinine is up to 2.0, currently. His TSH is noted to be mildly elevated, given his CHF and an echocardiogram was done, which shows an EF of 20%. He is not aware of known underlying CHF per se. In this setting, we were asked to see him for pre-cath consultation. He did have orthopnea on admission. He has not tried to lay flat at this time. He was felt to have possible pneumonia and has been treated with Rocephin and Zithromax. PAST MEDICAL HISTORY: Significant for; 1. Cataract extraction with implants. 2. Coronary artery disease, status post stent[place] [address] Mae. 3. Hyperlipidemia. 4. Hypertension. 5. GERD. 6. Gallstone removal in 70s. 7. Constipation. 8. Kidney stones. 9. Arthritis. 10. Previous alcohol use. 11. Possible CKD stage 3 with GFR of 40-45 with baseline creatinine of 1.67 on most recent visit. FAMILY HISTORY: Negative for known kidney problems, sickle cell, lupus, etc. at this time. SOCIAL HISTORY: Occasional alcohol use, nonsmoker, nondrinker currently and he is . For rest of details, see electronic records. CONTRERAS MILLER MD DR: ANDREW/sanam JOB#: [id number] / [id number]
--- NOTE | 2016-12-26 15:58 | RAD ---
Chest, 2 views, 12/26/2016: History: Congestive heart failure, shortness of breath Comparison is made to a study from 12/24/2016. The heart is mildly enlarged. There is tortuosity of the thoracic aorta. The pulmonary vascularity is normal. Pulmonary infiltrates have cleared. There is no evidence of pleural fluid. Moderate spurring is present in the spine. IMPRESSION: No acute cardiopulmonary abnormality is detected.
[2016-12-26] MEDS: ATORVASTATIN CALCIUM 40 MG TABLET. PO SCH (19:58)
[2016-12-26] MEDS: HYDROcodone/APAP 5/325MG 1 TAB TABLET PO PRN (22:39)
[2016-12-27 02:25] LABS: ALBUMIN 3.3 g/dL (3.4-5.0); CALCIUM 8.6 mg/dL (8.5-10.1); CREATININE 1.8 mg/dL (0.7-1.3); GFR 45.4; PHOSPHORUS 4.3 mg/dL (2.6-4.7); POTASSIUM 3.4 mmol/L (3.5-5.1)
[2016-12-27] MEDS: traMADol 50 MG TABLET PO PRN ×3 (02:56→21:33)
[2016-12-27 03:00] VITALS: BP 108/63
[2016-12-27 07:23] VITALS: BP 126/79
[2016-12-27] MEDS: HYDROcodone/APAP 5/325MG 1 TAB TABLET PO PRN (07:26)
[2016-12-27] MEDS: LOSARTAN POTASSIUM 50 MG TABLET. PO SCH (08:01)
[2016-12-27] MEDS: BENZONATATE 100 MG CAPSULE. PO SCH ×2 (08:01→21:25)
[2016-12-27] MEDS: ASPIRIN CHEWABLE 81 MG TABLET. PO SCH (08:02)
[2016-12-27] MEDS: CARVEDILOL 12.5 MG TABLET. PO SCH ×2 (08:03→17:50)
[2016-12-27] MEDS: TAMSULOSIN 0.4 MG CAP.ER.24H. PO SCH (08:03)
[2016-12-27] MEDS: POTASSIUM CHLORIDE 10 MEQ TABLET.ER. PO SCH ×3 (08:04→17:49)
--- NOTE | 2016-12-27 08:33 | PDOC ---
SUBJECTIVE ROS DENNIS/ CKD III Wants lasix since he is not urinating much (no Valentine per se) - UO as documented was OK (got lasix for scan prior to that) CVS: no Orthopnea, no CP RESP: no SOB, no ROGERS GI: no Nausea, no Vomiting : no Dysuria, no Urgency OBJECTIVE Vital Signs Vital Signs Date Time Temp Pulse Resp B/P (MAP) Pulse Ox O2 Delivery O2 Flow Rate FiO2 12/27/16 08:03 68 126/79 12/27/16 07:26 Nasal Cannula 2.0 12/27/16 07:23 98.4 20 98 98.4 I & 0 Intake and Output 12/27/16 07:00 Intake Total 1050 ml Output Total 1250 ml Balance -200 ml Intake Oral 1050 ml Output Urine Total 1250 ml # Bowel Movements 1 PHYSICAL EXAM Physical Exam General Appearance: Awake Alert Oriented x 3 In no Distress Eyes: Vision Unchanged Conjunctiva Normal EN: No EN Drainage Mucous Memb. moist Neck: no JVD min JVP Supple no Thyromegaly CVS: S1 S2 ? Murmur No Gallop No Rub no Edema Resp: no Rales no Rhonchi no Acc. Muscle use GI: BS +ve NO Bruit Non Tender Non Distended : no CVA tenderness; no Suprapubic Tenderness Assessment & Plan DENNIS : Little better today; most likely Decompensation from cardiac standpoint, vs due to Loss of Function on Left (Obstructive Uropathy) Current FLuid and E -lyte status does not necessitate emergent need for Dialysis. Will re-evaluate for Dialysis in am CKD III - ? non-functioning Lt Kidney vs Obstruction - most recent OP Creat is 1.[address] Mix office. He may benefit from URO eval for stent replacement / removal since hydro still persists CHF - much improved after Diuresis . Currently he seems well compensated - recheck CXR was clear ? CAD/ New onset CMyopahty - needs C - will d/w cardiology re timing of same. Would prefer to do this after URO procedure unless he is felt kishor high risk low K - replace as ordered; Mag is OK so far lowish UO (subj) - watch trend - adequate for now HTN: Current BP meds reviewed. See orders for changes. H/o stones and now s/p Lt Ureteral stenting in 03/[address] Veronica who has since closed his practice. No URO coverage avail currently - will need to move pt to facility with URO to eval Obstruction on the Left. Discussed Plan of Care and prognosis etc. at length with family (ian with step - daughter); CArdio style advisor. Discussed risk of DENNIS and possibly Needing HD thereafter. COMMENT/RELEVANT DATA Meds Current Medications Medications (Trade) Dose Ordered Sig/Umu Start Time Stop Time Status Last Admin Dose Admin Acetaminophen (Tylenol) 650 mg PRN Q4HRS PRN 12/24/16 04:45 12/25/16 04:44 DC Acetaminophen/ Hydrocodone Bitart (Lortab 5/325) 1 tab PRN Q6HRS PRN 12/24/16 09:00 12/27/16 07:26 1 TAB Acetylcysteine (Mucomyst 20% Oral Solution) 1,200 mg BID 12/25/16 21:00 12/27/16 20:59 12/26/16 19:58 1,200 MG Albuterol/ Ipratropium (Duoneb) 3 ml RTQID 12/24/16 08:00 12/25/16 07:59 DC 12/24/16 19:16 3 ML Amlodipine Besylate (Norvasc) 5 mg DAILY 12/27/16 09:00 12/27/16 08:03 5 MG Aspirin (Children'S Aspirin) 81 mg DAILY 12/24/16 09:30 12/27/16 08:02 81 MG Atorvastatin Calcium (Lipitor) 80 mg QHS 12/24/16 21:00 12/26/16 19:58 80 MG Azithromycin 250 ml @ 250 mls/hr 1X ONCE 12/24/16 03:30 12/24/16 04:29 DC 12/24/16 03:31 250 MLS/HR Benzonatate (Tessalon Perle) 100 mg BID 12/24/16 21:00 12/27/16 08:01 100 MG Carvedilol (Coreg) 12.5 mg BIDWMEALS 12/25/16 10:00 12/27/16 08:03 12.5 MG Ceftriaxone Sodium 50 ml @ 100 mls/hr 1X ONCE 12/24/16 03:30 12/24/16 03:59 DC 12/24/16 03:31 100 MLS/HR Fentanyl Citrate (Fentanyl 2ml Vial) 50 mcg PRN Q15MIN PRN 12/24/16 02:00 12/24/16 07:00 DC 12/24/16 02:12 50 MCG Furosemide (Lasix) 40 mg ONCE ONCE 12/26/16 09:15 12/26/16 09:16 DC 12/26/16 10:10 40 MG Hydrochlorothiazide (Hydrodiuril) 25 mg DAILY 12/24/16 09:30 12/25/16 08:51 DC 12/24/16 10:30 25 MG Losartan Potassium (Cozaar) 50 mg DAILY 12/25/16 10:00 12/27/16 08:01 50 MG Magnesium Sulfate/ Dextrose 50 ml @ 25 mls/hr PRN DAILY PRN 12/25/16 17:45 Morphine Sulfate 2 mg PRN Q2HR PRN 12/24/16 04:45 12/25/16 04:44 DC Ondansetron HCl (Zofran) 4 mg PRN Q8HRS PRN 12/24/16 04:45 12/25/16 04:44 DC Pneumococcal Polyvalent Vaccine (Do NOT chart on this placeholder) 1 each 1X ONCE 12/24/16 09:00 12/24/16 09:01 UNV Pneumococcal Polyvalent Vaccine (Pneumovax 23) 0.5 ml ONCE ONCE 12/24/16 09:00 12/24/16 09:02 DC 12/24/16 10:25 0.5 ML Potassium Chloride (Klor-Con) 10 meq TIDAFTMEAL 12/25/16 09:30 12/27/16 08:04 10 MEQ Sodium Chloride 500 ml @ 500 mls/hr 1X ONCE 12/24/16 02:30 12/24/16 03:29 DC 12/24/16 02:11 500 MLS/HR Tamsulosin HCl (Flomax) 0.4 mg DAILY 12/24/16 09:30 12/27/16 08:03 0.4 MG Tramadol HCl (Ultram) 50 mg PRN Q6HRS PRN 12/24/16 09:00 12/27/16 02:56 50 MG Lab Laboratory Tests Test 12/27/16 01:45 Sodium Level 141 mmol/L (136-145) Potassium Level 3.4 mmol/L (3.5-5.1) Chloride Level 105 mmol/L (98-107) Carbon Dioxide Level 29 mmol/L (21-32) Anion Gap 7 (6-14) Blood Urea Nitrogen 27 mg/dL (8-26) Creatinine 1.8 mg/dL (0.7-1.3) Estimated GFR (Cockcroft-Gault) 45.4 Glucose Level 102 mg/dL (70-99) Calcium Level 8.6 mg/dL (8.5-10.1) Phosphorus Level 4.3 mg/dL (2.6-4.7) Magnesium Level 2.1 mg/dL (1.8-2.4) Albumin 3.3 g/dL (3.4-5.0) CONTRERAS MILLER MD Dec 27, 2016 08:33
[2016-12-27] MEDS ORDERED: POTASSIUM CHLORIDE 20 MEQ TABLET.ER. PO ONE (09:00)
[2016-12-27] MEDS ORDERED: amLODIPine BESYLATE 5 MG TABLET PO SCH (09:00)
--- NOTE | 2016-12-27 09:26 | PDOC ---
Provider Note Provider Note renogram confirms L hydro, has long standing stent in L that must bee occluded- needs removal but no uro here- dr morales considering [facility] transfer as cath could create arf- otherwise stable LAURENCE MILLER MD Dec 27, 2016 09:26
--- NOTE | 2016-12-27 09:52 | PDOC ---
PULMONARY PROGRESS NOTES Subjective NO INCREASE SOA Vitals Vital Signs Date Time Temp Pulse Resp B/P (MAP) Pulse Ox O2 Delivery O2 Flow Rate FiO2 12/27/16 08:03 68 126/79 12/27/16 08:00 Nasal Cannula 2.0 12/27/16 07:23 98.4 20 98 98.4 ROS: No Nausea, No Chest Pain, No Abdominal Pain, No Increase Cough Lungs: Clear Cardiovascular: S1, S2 Abdomen: Soft Neuro Exam: Alert Extremities: No Edema Labs Laboratory Tests Test 12/25/16 17:40 12/26/16 04:00 12/27/16 01:45 Urine Collection Type Unknown Urine Color Yellow Urine Clarity Clear Urine pH 5.5 Urine Specific [place] 1.015 Urine Protein Negative mg/dL (NEG-TRACE) Urine Glucose (UA) Negative mg/dL (NEG) Urine Ketones (Stick) Negative mg/dL (NEG) Urine Blood Large (NEG) Urine Nitrite Negative (NEG) Urine Bilirubin Negative (NEG) Urine Urobilinogen Dipstick 0.2 mg/dL (0.2 mg/dL) Urine Leukocyte Esterase Moderate (NEG) Urine RBC Tntc /HPF (0-2) Urine WBC >40 /HPF (0-4) Urine Squamous Epithelial Cells Few /LPF Urine Bacteria 0 /HPF (0-FEW) Urine Hyaline Casts Few /HPF Urine Mucus Slight /LPF Hemoglobin 12.2 g/dL (13.0-17.5) Sodium Level 141 mmol/L (136-145) 141 mmol/L (136-145) Potassium Level 3.3 mmol/L (3.5-5.1) 3.4 mmol/L (3.5-5.1) Chloride Level 104 mmol/L (98-107) 105 mmol/L (98-107) Carbon Dioxide Level 27 mmol/L (21-32) 29 mmol/L (21-32) Anion Gap 10 (6-14) 7 (6-14) Blood Urea Nitrogen 21 mg/dL (8-26) 27 mg/dL (8-26) Creatinine 1.7 mg/dL (0.7-1.3) 1.8 mg/dL (0.7-1.3) Estimated GFR (Cockcroft-Gault) 48.5 45.4 Glucose Level 98 mg/dL (70-99) 102 mg/dL (70-99) Calcium Level 8.6 mg/dL (8.5-10.1) 8.6 mg/dL (8.5-10.1) Phosphorus Level 3.6 mg/dL (2.6-4.7) 4.3 mg/dL (2.6-4.7) Magnesium Level 2.3 mg/dL (1.8-2.4) 2.1 mg/dL (1.8-2.4) Albumin 3.2 g/dL (3.4-5.0) 3.3 g/dL (3.4-5.0) Laboratory Tests Test 12/27/16 01:45 Sodium Level 141 mmol/L (136-145) Potassium Level 3.4 mmol/L (3.5-5.1) Chloride Level 105 mmol/L (98-107) Carbon Dioxide Level 29 mmol/L (21-32) Anion Gap 7 (6-14) Blood Urea Nitrogen 27 mg/dL (8-26) Creatinine 1.8 mg/dL (0.7-1.3) Estimated GFR (Cockcroft-Gault) 45.4 Glucose Level 102 mg/dL (70-99) Calcium Level 8.6 mg/dL (8.5-10.1) Phosphorus Level 4.3 mg/dL (2.6-4.7) Magnesium Level 2.1 mg/dL (1.8-2.4) Albumin 3.3 g/dL (3.4-5.0) Medications Active Scripts Medications Dose Route/Sig Max Daily Dose Days Date Category Children's Aspirin (Aspirin) 81 Mg Tab.chew 81 Mg PO DAILY 03/24/16 Reported Hydrocodone-Apap 5-325 (Hydrocodone Bit/Acetaminophen) 1 Each Tablet 1 Tab PO PRN Q6HRS PRN 03/16/16 Rx Tramadol Hcl 50 Mg Tablet 50 Mg PO Q6H PRN 01/04/14 Reported Hydrochlorothiazide Tablet (Hydrochlorothiazide) 25 Mg Tablet 25 Mg PO DAILY 01/04/14 Reported Losartan Potassium 100 Mg Tablet 100 Mg PO DAILY 01/04/14 Reported Crestor (Rosuvastatin Calcium) 40 Mg Tablet 40 Mg PO HS 01/04/14 Reported Amlodipine Besylate 10 Mg Tablet 10 Mg PO DAILY 01/04/14 Reported Carvedilol 25 Mg Tablet 25 Mg PO BID 01/04/14 Reported Tamsulosin Hcl 0.4 Mg Cap.er.24h 0.4 Mg PO DAILY 01/04/14 Reported Niaspan (Niacin) 500 Mg Tab.er.24h 500 Mg PO HS 01/04/14 Reported Impression . 1. Abnormal x-ray compatible with acute systolic heart failure, possible combination with diastolic heart failure. 2. Coronary artery disease with previous stent placement. 3. Clinical presentation compatible with obstructive sleep apnea. 4. Obesity. 5. Hypertension. 6. Chronic kidney disease. 7. Cardiomyopathy may be new Plan . resp status is compensated off 02 possible transfer to outpt sleep study MAXI SALDANA MD Dec 27, 2016 09:52
[2016-12-27 10:20] VITALS: BP 104/56
[2016-12-27] MEDS: ACETYLCYSTEINE 20% ORAL SOLN 600 MG/3 ML SYRINGE. PO SCH ×2 (10:32→21:25)
--- NOTE | 2016-12-27 10:40 | PDOC ---
SAAD MEZA SIDE DOOR MAN 12/27/16 1040: CARDIO Progress Notes Date and Time Date of Service 12/27/16 Time of Evaluation 1040 Subjective Subjective: No Chest Pain, No shortness of breath, No Palpitations Comments: no acute events overnight on tele Vitals Vitals Vital Signs Date Time Temp Pulse Resp B/P (MAP) Pulse Ox O2 Delivery O2 Flow Rate FiO2 12/27/16 10:30 Nasal Cannula 2.0 12/27/16 10:20 98.6 64 20 104/56 (72) 96 98.6 Weight Weight [ ] Input and Output Intake and Output Intake and Output 12/27/16 07:00 Intake Total 1050 ml Output Total 1250 ml Balance -200 ml Intake Oral 1050 ml Output Urine Total 1250 ml # Bowel Movements 1 Laboratory Labs Laboratory Tests Test 12/27/16 01:45 Sodium Level 141 mmol/L (136-145) Potassium Level 3.4 mmol/L (3.5-5.1) Chloride Level 105 mmol/L (98-107) Carbon Dioxide Level 29 mmol/L (21-32) Anion Gap 7 (6-14) Blood Urea Nitrogen 27 mg/dL (8-26) Creatinine 1.8 mg/dL (0.7-1.3) Estimated GFR (Cockcroft-Gault) 45.4 Glucose Level 102 mg/dL (70-99) Calcium Level 8.6 mg/dL (8.5-10.1) Phosphorus Level 4.3 mg/dL (2.6-4.7) Magnesium Level 2.1 mg/dL (1.8-2.4) Albumin 3.3 g/dL (3.4-5.0) Microbiology Micro Microbiology 12/25/16 Urine Culture - Preliminary, Resulted 12/25/16 Urine Culture Result 1 (JAMMIE) - Preliminary, Resulted Physical Exam HEENT: Neck Supple W Full Motion Chest: Symmetric LUNGS: Other (diminished bases ) Heart: S1S2, RRR, murmurs (soft systolic murmur ) Abdomen: Soft N/T Extremities: Other (trace bilateral LE edema ) Neurology: alert, oriented, follow commands Assessment Assessment 1. Acute on chronic systolic heart failure; improved with diuresis. compensated 2. Cardiomyopathy; echo revealed LVEF 20-25% 3. CAD; s/p remote stent. 4. Hypertension; controlled with meds 5. CKD 3; Cr stable. 6. Hyperlipidemia 7. Obstructive uropathy; s/p ureteral stenting. Nuc med renal scan notable for left hydronephrosis with evidence of obstruction. Recommendations Low-dose oral diuretic for maintenance D/w nephrology, will proceed with cardiac cath in am. NPO p MN Continue supportive care Renal optimization per nephrology. Urology KAITLYN Carrera MD 12/28/16 0814: CARDIO Progress Notes Assessment Assessment Patient seen and examined 12/27/16. Agree with VISCOSITY INSPECTOR's assessment and plan. Plan for cardiac catheterization tomorrow with minimal amount of dye SAAD MEZA APRN Dec 27, 2016 10:40 KAITLYN PITTMAN MD Dec 28, 2016 08:14
[2016-12-27 14:21] VITALS: BP 100/57
[2016-12-27] MEDS: FUROSEMIDE 40 MG TABLET. PO SCH (15:02)
[2016-12-27 19:56] VITALS: BP 100/64
[2016-12-27] MEDS: ATORVASTATIN CALCIUM 40 MG TABLET. PO SCH (21:25)
[2016-12-27] MEDS: IV NORMAL SALINE 1000ML BAG 1,000 ML IV SCH (21:34)
[2016-12-27 23:10] VITALS: BP 105/68
[2016-12-28] VITALS (14 sets, daily range): BP systolic 95–138; BP diastolic 59–81
[2016-12-28 06:14] LABS: ALBUMIN 3.1 g/dL (3.4-5.0); CALCIUM 8.6 mg/dL (8.5-10.1); CREATININE 1.5 mg/dL (0.7-1.3); PHOSPHORUS 3.9 mg/dL (2.6-4.7); POTASSIUM 4.2 mmol/L (3.5-5.1)
[2016-12-28] MEDS: CARVEDILOL 12.5 MG TABLET. PO SCH ×2 (08:00→17:41)
--- NOTE | 2016-12-28 08:41 | PDOC ---
Provider Note Provider Note bp lower w/ meds so will dc norvasc- creat down to 1.5- for cath today LAURENCE MILLER MD Dec 28, 2016 08:40
--- NOTE | 2016-12-28 08:47 | PDOC ---
PULMONARY PROGRESS NOTES Subjective NO INCREASE SOA Vitals Vital Signs Date Time Temp Pulse Resp B/P (MAP) Pulse Ox O2 Delivery O2 Flow Rate FiO2 12/28/16 07:19 97.6 72 18 114/72 (86) 98 Room Air 97.6 12/28/16 03:34 2.0 ROS: No Nausea, No Chest Pain, No Abdominal Pain, No Increase Cough Lungs: Clear Cardiovascular: S1, S2 Abdomen: Soft Neuro Exam: Alert Extremities: No Edema Labs Laboratory Tests Test 12/27/16 01:45 12/27/16 13:05 12/28/16 04:30 12/28/16 05:00 Sodium Level 141 mmol/L (136-145) 143 mmol/L (136-145) Potassium Level 3.4 mmol/L (3.5-5.1) 3.9 mmol/L (3.5-5.1) 4.2 mmol/L (3.5-5.1) Chloride Level 105 mmol/L (98-107) 107 mmol/L (98-107) Carbon Dioxide Level 29 mmol/L (21-32) 26 mmol/L (21-32) Anion Gap 7 (6-14) 10 (6-14) Blood Urea Nitrogen 27 mg/dL (8-26) 27 mg/dL (8-26) Creatinine 1.8 mg/dL (0.7-1.3) 1.5 mg/dL (0.7-1.3) Estimated GFR (Cockcroft-Gault) 45.4 56.0 Glucose Level 102 mg/dL (70-99) 94 mg/dL (70-99) Calcium Level 8.6 mg/dL (8.5-10.1) 8.6 mg/dL (8.5-10.1) Phosphorus Level 4.3 mg/dL (2.6-4.7) 3.9 mg/dL (2.6-4.7) Magnesium Level 2.1 mg/dL (1.8-2.4) 2.1 mg/dL (1.8-2.4) Albumin 3.3 g/dL (3.4-5.0) 3.1 g/dL (3.4-5.0) Laboratory Tests Test 12/27/16 13:05 12/28/16 04:30 6/23/17 05:00 Potassium Level 3.9 mmol/L (3.5-5.1) 4.2 mmol/L (3.5-5.1) Sodium Level 143 mmol/L (136-145) Chloride Level 107 mmol/L (98-107) Carbon Dioxide Level 26 mmol/L (21-32) Anion Gap 10 (6-14) Blood Urea Nitrogen 27 mg/dL (8-26) Creatinine 1.5 mg/dL (0.7-1.3) Estimated GFR (Cockcroft-Gault) 56.0 Glucose Level 94 mg/dL (70-99) Calcium Level 8.6 mg/dL (8.5-10.1) Phosphorus Level 3.9 mg/dL (2.6-4.7) Albumin 3.1 g/dL (3.4-5.0) Magnesium Level 2.1 mg/dL (1.8-2.4) Medications Active Scripts Medications Dose Route/Sig Max Daily Dose Days Date Category Children's Aspirin (Aspirin) 81 Mg Tab.chew 81 Mg PO DAILY 03/24/16 Reported Hydrocodone-Apap 5-325 (Hydrocodone Bit/Acetaminophen) 1 Each Tablet 1 Tab PO PRN Q6HRS PRN 03/16/16 Rx Tramadol Hcl 50 Mg Tablet 50 Mg PO Q6H PRN 01/04/14 Reported Hydrochlorothiazide Tablet (Hydrochlorothiazide) 25 Mg Tablet 25 Mg PO DAILY 01/04/14 Reported Losartan Potassium 100 Mg Tablet 100 Mg PO DAILY 01/04/14 Reported Crestor (Rosuvastatin Calcium) 40 Mg Tablet 40 Mg PO HS 01/04/14 Reported Amlodipine Besylate 10 Mg Tablet 10 Mg PO DAILY 01/04/14 Reported Carvedilol 25 Mg Tablet 25 Mg PO BID 01/04/14 Reported Tamsulosin Hcl 0.4 Mg Cap.er.24h 0.4 Mg PO DAILY 01/04/14 Reported Niaspan (Niacin) 500 Mg Tab.er.24h 500 Mg PO HS 01/04/14 Reported Impression . 1. Abnormal x-ray compatible with acute systolic heart failure, possible combination with diastolic heart failure. 2. Coronary artery disease with previous stent placement. 3. Clinical presentation compatible with obstructive sleep apnea. 4. Obesity. 5. Hypertension. 6. Chronic kidney disease. 7. Cardiomyopathy may be new Plan . resp status is compensated off 02 possible transfer to outpt sleep study MAXI SALDANA MD Dec 28, 2016 08:47
[2016-12-28] MEDS: ASPIRIN CHEWABLE 81 MG TABLET. PO SCH (08:49)
[2016-12-28] MEDS: BENZONATATE 100 MG CAPSULE. PO SCH ×2 (08:52→20:30)
[2016-12-28] MEDS: LOSARTAN POTASSIUM 50 MG TABLET. PO SCH (09:00)
--- NOTE | 2016-12-28 10:03 | PDOC ---
SUBJECTIVE ROS DENNIS/ CKD III doing Ok overall, just got out of shower CVS: no Orthopnea, no CP RESP: no SOB, no ROGERS GI: no Nausea, no Vomiting : no Dysuria, no Urgency OBJECTIVE Vital Signs Vital Signs Date Time Temp Pulse Resp B/P (MAP) Pulse Ox O2 Delivery O2 Flow Rate FiO2 12/28/16 08:10 Room Air 12/28/16 07:19 97.6 72 18 114/72 (86) 98 97.6 12/28/16 03:34 2.0 I & 0 Intake and Output 12/28/16 07:00 Intake Total 1310 ml Output Total 200 ml Balance 1110 ml Intake Oral 1310 ml Output Urine Total 200 ml # Voids 4 PHYSICAL EXAM Physical Exam General Appearance: Awake Alert Oriented x 3 In no Distress Eyes: Vision Unchanged Conjunctiva Normal EN: No EN Drainage Mucous Memb. moist Neck: no JVD min JVP Supple no Thyromegaly CVS: S1 S2 ? Murmur No Gallop No Rub no Edema Resp: no Rales no Rhonchi no Acc. Muscle use GI: BS +ve NO Bruit Non Tender Non Distended : no CVA tenderness; no Suprapubic Tenderness Assessment & Plan DENNIS : better today; most likely Decompensation from cardiac standpoint, vs due to Loss of Function on Left (Obstructive Uropathy) Current FLuid and E-lyte status does not necessitate emergent need for Dialysis. Will re-evaluate for Dialysis in am CKD III - ? non-functioning Lt Kidney vs Obstruction - most recent OP Creat is 1.[address] Mix office. He may benefit from URO eval for stent replacement / removal since hydro still persists CHF - much improved after Diuresis . Currently he seems well compensated - recheck CXR was clear ? CAD/ New onset CMyopahty - needs [facility] - IVF and NAC as ordered. Min dye load as discussed with Dr Christian. Pt and family have been explained risk of CAN low K - replaced as ordered; Mag is OK so far lowish UO - watch trend - (? not well recorded due to lack of soliman) - Creat is better though HTN: Current BP meds reviewed. See orders for changes. H/o stones and now s/p Lt Ureteral stenting in 03/[address] Veronica ; consult dr Henry COMMENT/RELEVANT DATA Meds Current Medications Medications (Trade) Dose Ordered Sig/Umu Start Time Stop Time Status Last Admin Dose Admin Acetaminophen (Tylenol) 650 mg PRN Q4HRS PRN 12/24/16 04:45 12/25/16 04:44 DC Acetaminophen/ Hydrocodone Bitart (Lortab 5/325) 1 tab PRN Q6HRS PRN 12/24/16 09:00 12/27/16 07:26 1 TAB Acetylcysteine (Mucomyst 20% Oral Solution) 1,200 mg BID 12/27/16 21:00 12/29/16 20:59 12/27/16 21:25 1,200 MG Albuterol/ Ipratropium (Duoneb) 3 ml RTQID 12/24/16 08:00 12/25/16 07:59 DC 12/24/16 19:16 3 ML Amlodipine Besylate (Norvasc) 5 mg DAILY 12/27/16 09:00 12/28/16 08:40 DC 12/27/16 08:03 5 MG Aspirin (Children'S Aspirin) 81 mg DAILY 12/24/16 09:30 12/27/16 08:02 81 MG Atorvastatin Calcium (Lipitor) 80 mg QHS 12/24/16 21:00 12/27/16 21:25 80 MG Azithromycin 250 ml @ 250 mls/hr 1X ONCE 12/24/16 03:30 12/24/16 04:29 DC 12/24/16 03:31 250 MLS/HR Benzonatate (Tessalon Perle) 100 mg BID 12/24/16 21:00 12/28/16 08:52 100 MG Carvedilol (Coreg) 12.5 mg BIDWMEALS 12/25/16 10:00 12/27/16 17:50 12.5 MG Ceftriaxone Sodium 50 ml @ 100 mls/hr 1X ONCE 12/24/16 03:30 12/24/16 03:59 DC 12/24/16 03:31 100 MLS/HR Fentanyl Citrate (Fentanyl 2ml Vial) 50 mcg PRN Q15MIN PRN 12/24/16 02:00 12/24/16 07:00 DC 12/24/16 02:12 50 MCG Furosemide (Lasix) 40 mg DAILY 12/27/16 13:45 12/27/16 15:02 40 MG Hydrochlorothiazide (Hydrodiuril) 25 mg DAILY 12/24/16 09:30 12/25/16 08:51 DC 12/24/16 10:30 25 MG Losartan Potassium (Cozaar) 50 mg DAILY 12/25/16 10:00 12/27/16 08:01 50 MG Magnesium Sulfate/ Dextrose 50 ml @ 25 mls/hr PRN DAILY PRN 12/25/16 17:45 Morphine Sulfate 2 mg PRN Q2HR PRN 12/24/16 04:45 12/25/16 04:44 DC Ondansetron HCl (Zofran) 4 mg PRN Q8HRS PRN 12/24/16 04:45 12/25/16 04:44 DC Pneumococcal Polyvalent Vaccine (Do NOT chart on this placeholder) 1 each 1X ONCE 12/24/16 09:00 12/24/16 09:01 UNV Pneumococcal Polyvalent Vaccine (Pneumovax 23) 0.5 ml ONCE ONCE 12/24/16 09:00 12/24/16 09:02 DC 12/24/16 10:25 0.5 ML Potassium Chloride (Klor-Con) 10 meq DAILYAC 12/29/16 07:30 Sodium Chloride 1,000 ml @ 75 mls/hr [id number] 12/27/16 20:00 12/27/16 21:34 75 MLS/HR Tamsulosin HCl (Flomax) 0.4 mg DAILY 12/24/16 09:30 12/27/16 08:03 0.4 MG Tramadol HCl (Ultram) 50 mg PRN Q6HRS PRN 12/24/16 09:00 12/27/16 21:33 50 MG Lab Laboratory Tests Test 12/27/16 13:05 12/28/16 04:30 12/28/16 05:00 Potassium Level 3.9 mmol/L (3.5-5.1) 4.2 mmol/L (3.5-5.1) Sodium Level 143 mmol/L (136-145) Chloride Level 107 mmol/L (98-107) Carbon Dioxide Level 26 mmol/L (21-32) Anion Gap 10 (6-14) Blood Urea Nitrogen 27 mg/dL (8-26) Creatinine 1.5 mg/dL (0.7-1.3) Estimated GFR (Cockcroft-Gault) 56.0 Glucose Level 94 mg/dL (70-99) Calcium Level 8.6 mg/dL (8.5-10.1) Phosphorus Level 3.9 mg/dL (2.6-4.7) Albumin 3.1 g/dL (3.4-5.0) Magnesium Level 2.1 mg/dL (1.8-2.4) CONTRERAS MILLER MD Dec 28, 2016 10:03
[2016-12-28] MEDS: IV NORMAL SALINE 1000ML BAG 1,000 ML IV SCH ×2 (13:14→22:40)
[2016-12-28] MEDS: ACETYLCYSTEINE 20% ORAL SOLN 600 MG/3 ML SYRINGE. PO SCH ×2 (13:18→20:30)
--- NOTE | 2016-12-28 13:59 | PDOC ---
PROGRESS NOTES Subjective Subjective Pt. with left ureteral stent-placed last year by Dr. Veronica Objective Objective Vital Signs Date Time Temp Pulse Resp B/P (MAP) Pulse Ox O2 Delivery O2 Flow Rate FiO2 12/28/16 10:47 98.0 69 19 116/63 (80) 97 Nasal Cannula 2.0 98.0 Intake and Output 12/28/16 06:59 Intake Total 1310 ml Output Total 200 ml Balance 1110 ml Intake Oral 1310 ml Output Urine Total 200 ml # Voids 4 Physical Exam Physical Exam Renal scan shows possible obstruction left collecting system Plan Plan of Care I discussed with pt. and his family the options, alternatives, benefits, risks and possible complications of cystoscopy, bilateral retrograde pyelograms and left ureteral stent change. pt. understands and wishes to proceed with operation. Will proceed accordingly on Sunday 12/31 Problems Medical Problems: (1) Abdominal pain Status: Acute (2) Community acquired pneumonia Status: Acute (3) Elevated brain natriuretic peptide (BNP) level Status: Acute (4) Hypoxia Status: Acute Comment Review of Relevant I have reviewed the following items parish (where applicable) has been applied. Labs Laboratory Tests Test 12/27/16 01:45 12/27/16 13:05 12/28/16 04:30 12/28/16 05:00 Sodium Level 141 mmol/L (136-145) 143 mmol/L (136-145) Potassium Level 3.4 mmol/L (3.5-5.1) 3.9 mmol/L (3.5-5.1) 4.2 mmol/L (3.5-5.1) Chloride Level 105 mmol/L (98-107) 107 mmol/L (98-107) Carbon Dioxide Level 29 mmol/L (21-32) 26 mmol/L (21-32) Anion Gap 7 (6-14) 10 (6-14) Blood Urea Nitrogen 27 mg/dL (8-26) 27 mg/dL (8-26) Creatinine 1.8 mg/dL (0.7-1.3) 1.5 mg/dL (0.7-1.3) Estimated GFR (Cockcroft-Gault) 45.4 56.0 Glucose Level 102 mg/dL (70-99) 94 mg/dL (70-99) Calcium Level 8.6 mg/dL (8.5-10.1) 8.6 mg/dL (8.5-10.1) Phosphorus Level 4.3 mg/dL (2.6-4.7) 3.9 mg/dL (2.6-4.7) Magnesium Level 2.1 mg/dL (1.8-2.4) 2.1 mg/dL (1.8-2.4) Albumin 3.3 g/dL (3.4-5.0) 3.1 g/dL (3.4-5.0) Laboratory Tests Test 12/28/16 04:30 12/28/16 05:00 Sodium Level 143 mmol/L (136-145) Potassium Level 4.2 mmol/L (3.5-5.1) Chloride Level 107 mmol/L (98-107) Carbon Dioxide Level 26 mmol/L (21-32) Anion Gap 10 (6-14) Blood Urea Nitrogen 27 mg/dL (8-26) Creatinine 1.5 mg/dL (0.7-1.3) Estimated GFR (Cockcroft-Gault) 56.0 Glucose Level 94 mg/dL (70-99) Calcium Level 8.6 mg/dL (8.5-10.1) Phosphorus Level 3.9 mg/dL (2.6-4.7) Albumin 3.1 g/dL (3.4-5.0) Magnesium Level 2.1 mg/dL (1.8-2.4) Microbiology 12/25/16 Urine Culture - Final, Complete 12/25/16 Urine Culture Result 1 (JAMMIE) - Final, Complete Medications Current Medications Sodium Chloride 500 ml @ 500 mls/hr 1X ONCE IV Last administered on 02:11; Start 12/24/16 at 02:30; Stop 12/24/16 at 03:29; Status DC Ondansetron HCl (Zofran) 4 mg 1X ONCE IV Last administered on 12/24/16 02:12 ; Start 12/24/16 at 02:30; Stop 12/24/16 at 02:31; Status DC Fentanyl Citrate (Fentanyl 2ml Vial) 50 mcg PRN Q15MIN PRN IV PAIN GREATER THAN 3/10 Last administered on 12/24/16 02:12; Start 12/24/16 at 02:00; Stop at 07:00; Status DC Albuterol/ Ipratropium (Duoneb) 3 ml 1X ONCE NEB Last administered on 03:18; Start 12/24/16 at 03:30; Stop 12/24/16 at 03:31; Status DC Benzonatate (Tessalon Perle) 100 mg 1X ONCE PO Last administered on 12/24/16 03:30; Start 12/24/16 at 03:30; Stop 12/24/16 at 03:31; Status DC Ceftriaxone Sodium 50 ml @ 100 mls/hr 1X ONCE IV Last administered on 03:31; Start 12/24/16 at 03:30; Stop 12/24/16 at 03:59; Status DC Azithromycin 250 ml @ 250 mls/hr 1X ONCE IV Last administered on 12/24/16 03 :31; Start 12/24/16 at 03:30; Stop 12/24/16 at 04:29; Status DC Ondansetron HCl (Zofran) 4 mg PRN Q8HRS PRN IV NAUSEA/VOMITING; Start 12/24/16 at 04:45; Stop 12/25/16 at 04:44; Status DC Morphine Sulfate 2 mg PRN Q2HR PRN IV SEVERE PAIN; Start 12/24/16 at 04:45; Stop 12/25/16 at 04:44; Status DC Acetaminophen (Tylenol) 650 mg PRN Q4HRS PRN PO FEVER; Start 12/24/16 at 04:45 ; Stop 12/25/16 at 04:44; Status DC Albuterol/ Ipratropium (Duoneb) 3 ml RTQID NEB Last administered on 12/24/16 19:16; Start 12/24/16 at 08:00; Stop 12/25/16 at 07:59; Status DC Furosemide (Lasix) 40 mg 1X ONCE IVP Last administered on 12/24/16 06:30; Start 12/24/16 at 06:00; Stop 12/24/16 at 06:01; Status DC Pneumococcal Polyvalent Vaccine (Do NOT chart on this placeholder) 1 each 1X ONCE MC ; Start 12/24/16 at 09:00; Stop 12/24/16 at 09:01; Status UNV Pneumococcal Polyvalent Vaccine (Pneumovax 23) 0.5 ml ONCE ONCE VAX IM Last administered on 12/24/16 10:25; Start 12/24/16 at 09:00; Stop 12/24/16 at 09:02 ; Status DC Amlodipine Besylate (Norvasc) 10 mg DAILY PO Last administered on 12/26/16 08: 20; Start 12/24/16 at 09:30; Stop 12/26/16 at 08:38; Status DC Aspirin (Children'S Aspirin) 81 mg DAILY PO Last administered on 12/27/16 08: 02; Start 12/24/16 at 09:30 Hydrochlorothiazide (Hydrodiuril) 25 mg DAILY PO Last administered on 10:30; Start 12/24/16 at 09:30; Stop 12/25/16 at 08:51; Status DC Acetaminophen/ Hydrocodone Bitart (Lortab 5/325) 1 tab PRN Q6HRS PRN PO MODERATE-SEVERE PAIN Last administered on 12/27/16 07:26; Start 12/24/16 at 09: 00 Tamsulosin HCl (Flomax) 0.4 mg DAILY PO Last administered on 12/27/16 08:03; Start 12/24/16 at 09:30 Tramadol HCl (Ultram) 50 mg PRN Q6HRS PRN PO MILD PAIN Last administered on 21:33; Start 12/24/16 at 09:00 Carvedilol (Coreg) 25 mg BIDWMEALS PO Last administered on 12/24/16 17:40; Start 12/24/16 at 09:30; Stop 12/25/16 at 09:44; Status DC Losartan Potassium (Cozaar) 100 mg DAILY PO Last administered on 12/24/16 10: 31; Start 12/24/16 at 09:30; Stop 12/25/16 at 09:44; Status DC Atorvastatin Calcium (Lipitor) 80 mg QHS PO Last administered on 12/27/16 21: 25; Start 12/24/16 at 21:00 Furosemide (Lasix) 40 mg 1X ONCE IVP Last administered on 12/24/16 11:30; Start 12/24/16 at 11:15; Stop 12/24/16 at 11:16; Status DC Benzonatate (Tessalon Perle) 100 mg BID PO Last administered on 12/28/16 08:52 ; Start 12/24/16 at 21:00 Potassium Chloride (Klor-Con) 10 meq TIDAFTMEAL PO Last administered on 17:49; Start 12/25/16 at 09:30; Stop 12/28/16 at 08:40; Status DC Carvedilol (Coreg) 12.5 mg BIDWMEALS PO Last administered on 12/27/16 17:50; Start 12/25/16 at 10:00 Losartan Potassium (Cozaar) 50 mg DAILY PO Last administered on 12/27/16 08:01 ; Start 12/25/16 at 10:00 Magnesium Sulfate/ Dextrose 50 ml @ 25 mls/hr PRN DAILY PRN IV for Mag < 1.7 on am labs; Start 12/25/16 at 17:45 Acetylcysteine (Mucomyst 20% Oral Solution) 1,200 mg BID PO Last administered on 12/27/16 10:32; Start 12/25/16 at 21:00; Stop 12/27/16 at 13:11; Status DC Amlodipine Besylate (Norvasc) 5 mg DAILY PO Last administered on 12/27/16 08: 03; Start 12/27/16 at 09:00; Stop 12/28/16 at 08:40; Status DC Furosemide (Lasix) 40 mg ONCE ONCE IVP Last administered on 12/26/16 10:10; Start 12/26/16 at 09:15; Stop 12/26/16 at 09:16; Status DC Potassium Chloride (Klor-Con) 40 meq 1X ONCE PO Last administered on 10:28; Start 12/27/16 at 09:00; Stop 12/27/16 at 09:01; Status DC Sodium Chloride 1,000 ml @ 75 mls/hr [id number] IV Last administered on 13:14; Start 12/27/16 at 20:00 Acetylcysteine (Mucomyst 20% Oral Solution) 1,200 mg BID PO Last administered on 12/28/16 13:18; Start 12/27/16 at 21:00; Stop 12/29/16 at 20:59 Furosemide (Lasix) 40 mg DAILY PO Last administered on 6/22/17at 15:02; Start 12/27/16 at 13:45 Potassium Chloride (Klor-Con) 10 meq DAILYAC PO ; Start 12/29/16 at 07:30 Active Scripts Active Hydrocodone-Apap 5-325 (Hydrocodone Bit/Acetaminophen) 1 Each Tablet 1 Tab PO PRN Q6HRS PRN Reported Children's Aspirin (Aspirin) 81 Mg Tab.chew 81 Mg PO DAILY Tramadol Hcl 50 Mg Tablet 50 Mg PO Q6H PRN Hydrochlorothiazide Tablet (Hydrochlorothiazide) 25 Mg Tablet 25 Mg PO DAILY Losartan Potassium 100 Mg Tablet 100 Mg PO DAILY Crestor (Rosuvastatin Calcium) 40 Mg Tablet 40 Mg PO HS Amlodipine Besylate 10 Mg Tablet 10 Mg PO DAILY Carvedilol 25 Mg Tablet 25 Mg PO BID Tamsulosin Hcl 0.4 Mg Cap.er.24h 0.4 Mg PO DAILY Niaspan (Niacin) 500 Mg Tab.er.24h 500 Mg PO HS Vitals/I & O Vital Sign - Last 24 Hours 12/27/16 12/27/16 12/27/16 12/27/16 14:21 15:02 17:50 19:40 Temp 97.9 97.9 Pulse 64 64 Resp 18 B/P (MAP) 100/57 (71) 100/57 Pulse Ox 96 O2 Delivery Room Air Room Air Room Air 12/27/16 12/27/16 12/27/16 12/27/16 19:56 21:33 22:33 23:10 Temp 98.3 98.0 98.3 98.0 Pulse 59 61 Resp 16 20 20 16 B/P (MAP) 100/64 (76) 105/68 (80) Pulse Ox 96 98 O2 Delivery Room Air Room Air Nasal Cannula Nasal Cannula O2 Flow Rate 2.0 2.0 12/28/16 12/28/16 12/28/16 12/28/16 03:34 07:19 08:10 10:47 Temp 97.2 97.6 98.0 97.2 97.6 98.0 Pulse 58 72 69 Resp 16 18 19 B/P (MAP) 95/64 (74) 114/72 (86) 116/63 (80) Pulse Ox 99 98 97 O2 Delivery Nasal Cannula Room Air Room Air Nasal Cannula O2 Flow Rate 2.0 2.0 Intake and Output 12/27/16 12/27/16 12/28/16 14:59 22:59 06:59 Intake Total 360 ml 750 ml 200 ml Output Total 200 ml Balance 360 ml 550 ml 200 ml ISAIAH HELTON MD Dec 28, 2016 13:59
[2016-12-28] MEDS ORDERED: IODIXANOL 320 MG/ML 100 ML VIAL. ONE (14:57)
[2016-12-28] MEDS ORDERED: LIDOCAINE 2% 20 ML VIAL. ONE (14:57)
[2016-12-28] MEDS ORDERED: NITROGLYCERIN 200 MCG/2 ML SYRINGE FOR CATH/VASC LAB. ONE ×2 (15:12→16:05)
[2016-12-28] MEDS ORDERED: MIDAZOLAM HCL/PF 5 MG/5 ML VIAL. ONE (15:13)
[2016-12-28] MEDS ORDERED: HEPARIN for IV BOLUS 10,000 UNIT/10 ML VIAL. ONE (15:13)
[2016-12-28] MEDS ORDERED: fentaNYL PF VIAL 250 MCG/5 ML VIAL ONE (15:13)
[2016-12-28] MEDS ORDERED: VERAPAMIL 5 MG/2 ML VIAL. ONE (15:13)
[2016-12-28] MEDS ORDERED: HEPARIN for IV BOLUS 10,000 UNIT/10 ML VIAL. IART ONE (15:30)
[2016-12-28] MEDS ORDERED: IODIXANOL 320 MG/ML 100 ML VIAL. IART ONE (15:30)
[2016-12-28] MEDS ORDERED: LIDOCAINE 2% 20 ML VIAL. IJ ONE (15:30)
[2016-12-28] MEDS ORDERED: fentaNYL PF VIAL 250 MCG/5 ML VIAL IV ONE (15:30)
[2016-12-28] MEDS ORDERED: VERAPAMIL 5 MG/2 ML VIAL. IART ONE (15:30)
[2016-12-28] MEDS ORDERED: MIDAZOLAM HCL/PF 5 MG/5 ML VIAL. IV ONE (15:30)
[2016-12-28] MEDS ORDERED: NITROGLYCERIN 200 MCG/2 ML SYRINGE FOR CATH/VASC LAB. IART ONE (15:30)
[2016-12-28] MEDS ORDERED: BIVALIRUDIN 250 MG VIAL. IV ONE ×2 (15:35→16:00)
[2016-12-28] MEDS ORDERED: ASPIRIN 325 MG TABLET ONE (16:10)
[2016-12-28] MEDS ORDERED: CLOPIDOGREL BISULFATE 75 MG TABLET ONE (16:11)
[2016-12-28] MEDS ORDERED: CLOPIDOGREL BISULFATE 75 MG TABLET PO ONE (16:30)
[2016-12-28] MEDS ORDERED: ASPIRIN 325 MG TABLET PO ONE (16:30)
--- NOTE | 2016-12-28 16:39 | PDOC ---
MODERATE SEDATION ASSESSMENT RISKS/ALTERNATIVES Risks/Alternatives Risks and alternatives of this type of sedation and procedure discussed with: RISK/ALTERNATIVES: Patient H & P ON CHART H & P H & P on chart and reviewed for co-morbid conditions and appropriate labs. H&P ON CHART: Yes STATUS PREG STATUS ASSESSED: N/A MEDS/ALLERGIES REVIEWED Meds/Allergies Reviewed Medications and Allergies including time and route of recently administered narcotics and sedatives. MEDS/ALLERGIES REVIEWED: Yes ASA RATING ASA RATING: II AIRWAY ASSESSMENT Airway Assessment Airway patency, oral function limitations, presence of caps, crowns, dentures, partials, and ability to extend neck assessed. AIRWAY ASSESSMENT: Yes MALLAMPATI SCORE MALLAMPATI SCORE: II PRE-SEDATION ASSESSMENT PRE-SEDATION ASSESSMENT: Yes KAITLYN PITTMAN MD Dec 28, 2016 16:39
[2016-12-28] MEDS ORDERED: ACETAMINOPHEN 325 MG TABLET. PO PRN (16:45)
[2016-12-28] MEDS ORDERED: NITROGLYCERIN SUBLINGUAL 0.4 MG BOTTLE OF 25. SL PRN (16:45)
--- NOTE | 2016-12-28 16:48 | CARD ---
APPROVED REPORT Procedure(s) performed: 1. Left heart catheterization, selective coronary angiography via right mitchell sradial approach 2. Instantaneous wave free ratio (IFR) to the left anterior descending artery 3. Successful PCI/stents placement to the left anterior descending and right coronary arteries INDICATION The indication(s) include : Acute on chronic systolic heart failure, unstable angina. PROCEDURE NARRATIVE After explaining the risks, benefits and alternative options, informed consent was obtained from deniz ent. Patient was brought to the cardiac Fraud Analyst and his right wrist was prepped and draped in the us ual fashion after confirming a positive modified Silverio's test. Arterial access was obtained in the [facility] radial artery and 6 Belgian sheath was inserted. 6 Belgian Joel and 6 Belgian JL 3.5 catheters were used to perform selective angiography of the right and left coronary arteries respectively. LVEDP an d transaortic gradients were measured. Since patient was found to have angiographically borderline si gnificant stenosis involving the left anterior descending artery, a decision was made to perform inst antaneous wave free ratio (IFR). The lesion in the midsegment was crossed with [place] [employer]ata Pressu reWire and IFR measurement was made which came back physiologically significant ranging from 0.87 to 0.89. FINDINGS 1. Hemodynamics: Left ventricular end-diastolic pressure 23 mmHg. No pullback gradient across the a ortic valve. 2. Coronary angiography: a. The left main coronary artery arose from the left sinus of Valsalva, gave rise to the left anteri or descending and left circumflex arteries and did not show any significant stenosis. b. The left anterior descending artery showed 60-70% stenosis in the midsegment that was found to be physiologically significant based on IFR measurement of 0.87 to 0.89. c. The left circumflex artery did not show any significant stenosis. d. The right coronary artery arose from the right sinus of Valsalva and showed 70-80% stenosis in th e proximal to midsegment. INTERVENTION After initial unsuccessful attempts at engaging the left main coronary artery with 6 Belgian ikari rig ht 1.5 guide catheter, this was engaged with a 6 Belgian XB 3.5 guide catheter. The stenosis in the mi dsegment of the left anterior descending artery was crossed with a 0.014 inch [employer] guidewir e and successfully treated with a 3.0 x 18 mm MultiLink vision stent. Follow-up angiography showed re solution of the stenosis to 0% with DALTON-3 distal flow. Subsequently, the right coronary artery was e ngaged with a 6 Belgian hockey-stick guide catheter. The lesion in the proximal to midsegment was cros sed with the same guidewire, dilated with the 3.0 x 18 mm stent balloon and successfully treated with a 3.0 x 23 mm MultiLink vision stent. Follow-up angiography showed resolution of the stenosis to 0% with DALTON-3 distal flow. Patient tolerated the procedure well. Hemostasis was achieved using TR band. There were no immediate complications. Conclusion 1. Two-vessel coronary artery disease 2. Successful PCI/stents placement to the left anterior descending and right coronary arteries. Recommended Discharged Medications 1. Aspirin 325 mg daily 2. Plavix 75 mg daily for atleast 2-4 weeks and preferably one year 3. Cardiovascular risk factor modification.
[2016-12-28] MEDS: FUROSEMIDE 40 MG TABLET. PO SCH (17:38)
[2016-12-28] MEDS: TAMSULOSIN 0.4 MG CAP.ER.24H. PO SCH (17:39)
[2016-12-28] MEDS: IV 1/2 NORMAL SALINE 1,000 ML IV SCH (17:49)
[2016-12-28] MEDS ORDERED: ONDANSETRON PF 4 MG/2 ML VIAL. IV PRN (18:00)
[2016-12-28] MEDS: ATORVASTATIN CALCIUM 40 MG TABLET. PO SCH (20:30)
[2016-12-29 03:12] VITALS: BP 123/73
[2016-12-29 05:09] LABS: ALBUMIN 3.4 g/dL (3.4-5.0); CALCIUM 8.7 mg/dL (8.5-10.1); CREATININE 1.7 mg/dL (0.7-1.3); GFR 48.5; POTASSIUM 3.8 mmol/L (3.5-5.1)
--- NOTE | 2016-12-29 05:38 | CONS ---
DATE OF CONSULTATION: 12/28/2016 The patient's room . HISTORY OF PRESENT ILLNESS: The patient is a very pleasant 71-year-old -[place] male who was admitted with shortness of breath. The patient was also found to have an indwelling left ureteral stent. The patient was a patient of Dr. Veronica and had undergone a cystoscopy, left retrograde pyelogram, and left ureteral stent placement back in 03/2016 for a 5 mm left proximal ureteral stone. The patient states he has not been following up with Dr. Veronica and the stent still remains in place. The patient came in with an elevated creatinine of 1.5 and it is still at 1.5. He had a CT abdomen and pelvis, which shows bilateral renal calculi and mild left sided hydronephrosis, left ureteral stent in place. Then, had a renal scan, which showed left hydronephrosis and poor washout of left collecting system possible obstruction. PHYSICAL EXAMINATION: ABDOMEN: Soft, nontender. GENITOURINARY: Testes are descended bilaterally. Phallus within normal limits. RECTAL: Good sphincter tone. Prostate smooth, nontender, without nodules, overall size 30 grams. PLAN: I talked with the patient and his family concerning his findings and we talked about the options, alternatives, benefits, risks and possible complications of cystoscopy, bilateral retrograde pyelograms and possible left ureteral stent change. They understand this and they wish to proceed with operation. We will therefore proceed accordingly on 12/31/2016 under anesthesia. I certainly appreciate being allowed to participate in this patient's care. ISAIAH HELTON MD DR: BOAZ/sanam JOB#: [id number] / [id number]
[2016-12-29] MEDS: IV 1/2 NORMAL SALINE 1,000 ML IV SCH ×2 (05:44→18:09)
[2016-12-29 07:15] VITALS: BP 134/80
[2016-12-29] MEDS: FUROSEMIDE 40 MG TABLET. PO SCH (09:21)
[2016-12-29] MEDS: BENZONATATE 100 MG CAPSULE. PO SCH ×2 (09:21→20:37)
[2016-12-29] MEDS: TAMSULOSIN 0.4 MG CAP.ER.24H. PO SCH (09:21)
[2016-12-29] MEDS: POTASSIUM CHLORIDE 10 MEQ TABLET.ER. PO SCH (09:21)
[2016-12-29] MEDS: LOSARTAN POTASSIUM 50 MG TABLET. PO SCH (09:22)
[2016-12-29] MEDS: ASPIRIN ENTERIC COATED 325 MG TABLET.DR. PO SCH (09:22)
[2016-12-29] MEDS: CARVEDILOL 12.5 MG TABLET. PO SCH ×2 (09:22→17:15)
[2016-12-29] MEDS: CLOPIDOGREL BISULFATE 75 MG TABLET PO SCH (09:29)
[2016-12-29] MEDS: ACETYLCYSTEINE 20% ORAL SOLN 600 MG/3 ML SYRINGE. PO SCH (09:29)
--- NOTE | 2016-12-29 10:09 | PDOC ---
PROGRESS NOTES Subjective Subjective Pt. feeling well Objective Objective Vital Signs Date Time Temp Pulse Resp B/P (MAP) Pulse Ox O2 Delivery O2 Flow Rate FiO2 12/29/16 09:22 76 134/80 12/29/16 07:51 Room Air 12/29/16 07:15 98.9 18 100 98.9 12/28/16 10:47 2.0 Intake and Output 12/29/16 06:59 Intake Total 660 ml Output Total 770 ml Balance -110 ml Intake Oral 660 ml Output Urine Total 770 ml # Voids 2 # Bowel Movements 3 Physical Exam Physical Exam Pt. just had PCI with stents yesterday Plan Plan of Care I talked with Pt. and medical oncologist about his situation Pt. needs to be on plavix for at least the next 2 weeks. Would therefore not recommend left ureteral stent change at this time. Will have pt. f/u with Dr. Lynn at urology in the next 2-3 weeks for further evaluation and treatment of his indwelling left ureteral stent and large left renal stone Problems Medical Problems: (1) Abdominal pain Status: Acute (2) Community acquired pneumonia Status: Acute (3) Elevated brain natriuretic peptide (BNP) level Status: Acute (4) Hypoxia Status: Acute Comment Review of Relevant I have reviewed the following items parish (where applicable) has been applied. Labs Laboratory Tests Test 12/27/16 13:05 12/28/16 04:30 12/28/16 05:00 12/29/16 04:00 Potassium Level 3.9 mmol/L (3.5-5.1) 4.2 mmol/L (3.5-5.1) 3.8 mmol/L (3.5-5.1) Sodium Level 143 mmol/L (136-145) 142 mmol/L (136-145) Chloride Level 107 mmol/L (98-107) 107 mmol/L (98-107) Carbon Dioxide Level 26 mmol/L (21-32) 24 mmol/L (21-32) Anion Gap 10 (6-14) 11 (6-14) Blood Urea Nitrogen 27 mg/dL (8-26) 23 mg/dL (8-26) Creatinine 1.5 mg/dL (0.7-1.3) 1.7 mg/dL (0.7-1.3) Estimated GFR (Cockcroft-Gault) 56.0 48.5 Glucose Level 94 mg/dL (70-99) 97 mg/dL (70-99) Calcium Level 8.6 mg/dL (8.5-10.1) 8.7 mg/dL (8.5-10.1) Phosphorus Level 3.9 mg/dL (2.6-4.7) 3.0 mg/dL (2.6-4.7) Albumin 3.1 g/dL (3.4-5.0) 3.4 g/dL (3.4-5.0) Magnesium Level 2.1 mg/dL (1.8-2.4) 2.1 mg/dL (1.8-2.4) Laboratory Tests Test 12/29/16 04:00 Sodium Level 142 mmol/L (136-145) Potassium Level 3.8 mmol/L (3.5-5.1) Chloride Level 107 mmol/L (98-107) Carbon Dioxide Level 24 mmol/L (21-32) Anion Gap 11 (6-14) Blood Urea Nitrogen 23 mg/dL (8-26) Creatinine 1.7 mg/dL (0.7-1.3) Estimated GFR (Cockcroft-Gault) 48.5 Glucose Level 97 mg/dL (70-99) Calcium Level 8.7 mg/dL (8.5-10.1) Phosphorus Level 3.0 mg/dL (2.6-4.7) Magnesium Level 2.1 mg/dL (1.8-2.4) Albumin 3.4 g/dL (3.4-5.0) Microbiology 12/25/16 Urine Culture - Final, Complete 12/25/16 Urine Culture Result 1 (JAMMIE) - Final, Complete Medications Current Medications Sodium Chloride 500 ml @ 500 mls/hr 1X ONCE IV Last administered on 02:11; Start 12/24/16 at 02:30; Stop 12/24/16 at 03:29; Status DC Ondansetron HCl (Zofran) 4 mg 1X ONCE IV Last administered on 12/24/16 02:12 ; Start 12/24/16 at 02:30; Stop 12/24/16 at 02:31; Status DC Fentanyl Citrate (Fentanyl 2ml Vial) 50 mcg PRN Q15MIN PRN IV PAIN GREATER THAN 3/10 Last administered on 12/24/16 02:12; Start 12/24/16 at 02:00; Stop at 07:00; Status DC Albuterol/ Ipratropium (Duoneb) 3 ml 1X ONCE NEB Last administered on 03:18; Start 12/24/16 at 03:30; Stop 12/24/16 at 03:31; Status DC Benzonatate (Tessalon Perle) 100 mg 1X ONCE PO Last administered on 12/24/16 03:30; Start 12/24/16 at 03:30; Stop 12/24/16 at 03:31; Status DC Ceftriaxone Sodium 50 ml @ 100 mls/hr 1X ONCE IV Last administered on 03:31; Start 12/24/16 at 03:30; Stop 12/24/16 at 03:59; Status DC Azithromycin 250 ml @ 250 mls/hr 1X ONCE IV Last administered on 12/24/16 03 :31; Start 12/24/16 at 03:30; Stop 12/24/16 at 04:29; Status DC Ondansetron HCl (Zofran) 4 mg PRN Q8HRS PRN IV NAUSEA/VOMITING; Start 12/24/16 at 04:45; Stop 12/25/16 at 04:44; Status DC Morphine Sulfate 2 mg PRN Q2HR PRN IV SEVERE PAIN; Start 12/24/16 at 04:45; Stop 12/25/16 at 04:44; Status DC Acetaminophen (Tylenol) 650 mg PRN Q4HRS PRN PO FEVER; Start 12/24/16 at 04:45 ; Stop 12/25/16 at 04:44; Status DC Albuterol/ Ipratropium (Duoneb) 3 ml RTQID NEB Last administered on 12/24/16 19:16; Start 12/24/16 at 08:00; Stop 12/25/16 at 07:59; Status DC Furosemide (Lasix) 40 mg 1X ONCE IVP Last administered on 12/24/16 06:30; Start 12/24/16 at 06:00; Stop 12/24/16 at 06:01; Status DC Pneumococcal Polyvalent Vaccine (Do NOT chart on this placeholder) 1 each 1X ONCE MC ; Start 12/24/16 at 09:00; Stop 12/24/16 at 09:01; Status UNV Pneumococcal Polyvalent Vaccine (Pneumovax 23) 0.5 ml ONCE ONCE VAX IM Last administered on 12/24/16 10:25; Start 12/24/16 at 09:00; Stop 12/24/16 at 09:02 ; Status DC Amlodipine Besylate (Norvasc) 10 mg DAILY PO Last administered on 12/26/16 08: 20; Start 12/24/16 at 09:30; Stop 12/26/16 at 08:38; Status DC Aspirin (Children'S Aspirin) 81 mg DAILY PO Last administered on 12/27/16 08: 02; Start 12/24/16 at 09:30; Stop 12/28/16 at 16:44; Status DC Hydrochlorothiazide (Hydrodiuril) 25 mg DAILY PO Last administered on 10:30; Start 12/24/16 at 09:30; Stop 12/25/16 at 08:51; Status DC Acetaminophen/ Hydrocodone Bitart (Lortab 5/325) 1 tab PRN Q6HRS PRN PO MODERATE-SEVERE PAIN Last administered on 12/27/16 07:26; Start 12/24/16 at 09: 00 Tamsulosin HCl (Flomax) 0.4 mg DAILY PO Last administered on 12/29/16 09:21; Start 12/24/16 at 09:30 Tramadol HCl (Ultram) 50 mg PRN Q6HRS PRN PO MILD PAIN Last administered on 21:33; Start 12/24/16 at 09:00 Carvedilol (Coreg) 25 mg BIDWMEALS PO Last administered on 12/24/16 17:40; Start 12/24/16 at 09:30; Stop 12/25/16 at 09:44; Status DC Losartan Potassium (Cozaar) 100 mg DAILY PO Last administered on 12/24/16 10: 31; Start 12/24/16 at 09:30; Stop 12/25/16 at 09:44; Status DC Atorvastatin Calcium (Lipitor) 80 mg QHS PO Last administered on 12/28/16 20: 30; Start 12/24/16 at 21:00 Furosemide (Lasix) 40 mg 1X ONCE IVP Last administered on 12/24/16 11:30; Start 12/24/16 at 11:15; Stop 12/24/16 at 11:16; Status DC Benzonatate (Tessalon Perle) 100 mg BID PO Last administered on 12/29/16 09:21 ; Start 12/24/16 at 21:00 Potassium Chloride (Klor-Con) 10 meq TIDAFTMEAL PO Last administered on 17:49; Start 12/25/16 at 09:30; Stop 12/28/16 at 08:40; Status DC Carvedilol (Coreg) 12.5 mg BIDWMEALS PO Last administered on 12/29/16 09:22; Start 12/25/16 at 10:00 Losartan Potassium (Cozaar) 50 mg DAILY PO Last administered on 12/29/16 09:22 ; Start 12/25/16 at 10:00 Magnesium Sulfate/ Dextrose 50 ml @ 25 mls/hr PRN DAILY PRN IV for Mag < 1.7 on am labs; Start 12/25/16 at 17:45 Acetylcysteine (Mucomyst 20% Oral Solution) 1,200 mg BID PO Last administered on 12/27/16 10:32; Start 12/25/16 at 21:00; Stop 12/27/16 at 13:11; Status DC Amlodipine Besylate (Norvasc) 5 mg DAILY PO Last administered on 12/27/16 08: 03; Start 12/27/16 at 09:00; Stop 12/28/16 at 08:40; Status DC Furosemide (Lasix) 40 mg ONCE ONCE IVP Last administered on 12/26/16 10:10; Start 12/26/16 at 09:15; Stop 12/26/16 at 09:16; Status DC Potassium Chloride (Klor-Con) 40 meq 1X ONCE PO Last administered on 10:28; Start 12/27/16 at 09:00; Stop 12/27/16 at 09:01; Status DC Sodium Chloride 1,000 ml @ 75 mls/hr [id number] IV Last administered on 13:14; Start 12/27/16 at 20:00 Acetylcysteine (Mucomyst 20% Oral Solution) 1,200 mg BID PO Last administered on 12/29/16 09:29; Start 12/27/16 at 21:00; Stop 12/29/16 at 20:59 Furosemide (Lasix) 40 mg DAILY PO Last administered on 12/29/16 09:21; Start 12/27/16 at 13:45 Potassium Chloride (Klor-Con) 10 meq DAILYAC PO Last administered on 12/29/16 09:21; Start 12/29/16 at 07:30 Lidocaine HCl 20 ml STK-MED ONCE .ROUTE ; Start 12/28/16 at 14:57; Stop at 14:58; Status DC Heparin Sodium/ Sodium Chloride 1,000 ml @ As Directed STK-MED ONCE .ROUTE ; Start 12/28/16 at 14:57; Stop 12/28/16 at 14:58; Status DC Iodixanol (Visipaque 320) 100 ml STK-MED ONCE .ROUTE ; Start 12/28/16 at 14:57; Stop 12/28/16 at 14:58; Status DC Nitroglycerin (Nitroglycerin) 200 mcg STK-MED ONCE .ROUTE ; Start 12/28/16 at 15 :12; Stop 12/28/16 at 15:13; Status DC Verapamil HCl (Verapamil) 5 mg STK-MED ONCE .ROUTE ; Start 12/28/16 at 15:13; Stop 12/28/16 at 15:14; Status DC Fentanyl Citrate (Fentanyl 5ml Vial) 250 mcg STK-MED ONCE .ROUTE ; Start at 15:13; Stop 12/28/16 at 15:14; Status DC Midazolam HCl (Versed) 5 mg STK-MED ONCE .ROUTE ; Start 12/28/16 at 15:13; Stop 12/28/16 at 15:14; Status DC Heparin Sodium (Porcine) (Heparin Sodium) 10,000 unit STK-MED ONCE .ROUTE ; Start 12/28/16 at 15:13; Stop 12/28/16 at 15:14; Status DC Nitroglycerin (Nitroglycerin) 200 mcg 1X ONCE IART Last administered on 16:18; Start 12/28/16 at 15:30; Stop 12/28/16 at 15:31; Status DC Verapamil HCl (Verapamil) 2.5 mg 1X ONCE IART Last administered on 12/28/16 16:19; Start 12/28/16 at 15:30; Stop 12/28/16 at 15:31; Status DC Heparin Sodium (Porcine) (Heparin Sodium) 2,500 unit 1X ONCE IART Last administered on 12/28/16 16:20; Start 12/28/16 at 15:30; Stop 12/28/16 at 15:31 ; Status DC Heparin Sodium/ Sodium Chloride 1,000 unit 1X ONCE IART Last administered on 16:20; Start 12/28/16 at 15:30; Stop 12/28/16 at 15:31; Status DC Midazolam HCl (Versed) 5 mg 1X ONCE IV Last administered on 12/28/16 16:18; Start 12/28/16 at 15:30; Stop 12/28/16 at 15:31; Status DC Fentanyl Citrate (Fentanyl 5ml Vial) 250 mcg 1X ONCE IV Last administered on 16:19; Start 12/28/16 at 15:30; Stop 12/28/16 at 15:31; Status DC Iodixanol (Visipaque 320) 100 ml 1X ONCE IART ; Start 12/28/16 at 15:30; Stop 12/28/16 at 15:31; Status DC Lidocaine HCl 20 ml 1X ONCE IJ Last administered on 12/28/16 16:17; Start at 15:30; Stop 12/28/16 at 15:31; Status DC Bivalirudin (Angiomax) 250 mg STK-MED ONCE IV ; Start 12/28/16 at 15:35; Stop at 15:36; Status DC Bivalirudin (Angiomax) 250 mg 1X ONCE IV Last administered on 12/28/16 16:17 ; Start 12/28/16 at 16:00; Stop 12/28/16 at 16:01; Status DC Nitroglycerin (Nitroglycerin) 200 mcg STK-MED ONCE .ROUTE ; Start 12/28/16 at 16 :05; Stop 12/28/16 at 16:06; Status DC Aspirin (Shikha Aspirin) 325 mg STK-MED ONCE .ROUTE ; Start 12/28/16 at 16:10; Stop 12/28/16 at 16:11; Status DC Clopidogrel Bisulfate (Plavix) 75 mg STK-MED ONCE .ROUTE ; Start 12/28/16 at 16: 11; Stop 12/28/16 at 16:12; Status DC Clopidogrel Bisulfate (Plavix) 600 mg 1X ONCE PO Last administered on 16:29; Start 12/28/16 at 16:30; Stop 12/28/16 at 16:31; Status DC Aspirin (Shikha Aspirin) 325 mg 1X ONCE PO Last administered on 12/28/16 16:30 ; Start 12/28/16 at 16:30; Stop 12/28/16 at 16:31; Status DC Sodium Chloride 1,000 ml @ 75 mls/hr [id number] IV Last administered on 17:49; Start 12/28/16 at 17:00 Aspirin (Ecotrin) 325 mg DAILYWBKFT PO Last administered on 12/29/16 09:22; Start 12/29/16 at 08:00 Clopidogrel Bisulfate (Plavix) 75 mg DAILYWBKFT PO Last administered on 09:29; Start 12/29/16 at 08:00 Acetaminophen (Tylenol) 650 mg PRN Q6HRS PRN PO MILD PAIN / TEMP; Start at 16:45 Nitroglycerin (Nitrostat) 0.4 mg PRN Q5MIN PRN SL CHEST PAIN; Start 12/28/16 at 16:45 Ondansetron HCl (Zofran) 4 mg PRN Q6HRS PRN IV NAUSEA/VOMITING; Start 12/31/16 at 07:00; Stop 12/31/16 at 23:00 Fentanyl Citrate (Fentanyl 2ml Vial) 25 mcg PRN Q5MIN PRN IV MILD PAIN; Start 12/31/16 at 07:00; Stop 12/31/16 at 23:00 Fentanyl Citrate (Fentanyl 2ml Vial) 50 mcg PRN Q5MIN PRN IV MODERATE PAIN; Start 12/31/16 at 07:00; Stop 12/31/16 at 23:00 Morphine Sulfate 1 mg PRN Q10MIN PRN IV SEVERE PAIN; Start 12/31/16 at 07:00; Stop 12/31/16 at 23:00 Ringer's Solution 1,000 ml @ 30 mls/hr Q24H IV ; Start 12/31/16 at 07:00; Stop 12/31/16 at 18:59 Lidocaine HCl 2 ml PRN 1X PRN ID PRIOR TO IV START; Start 12/31/16 at 07:00; Stop 12/31/16 at 23:00 Hydromorphone HCl (Dilaudid) 0.5 mg PRN Q10MIN PRN IV SEV PAIN, Second choice; Start 12/31/16 at 07:00; Stop 12/31/16 at 23:00 Prochlorperazine Edisylate (Compazine) 5 mg PACU PRN PRN IV NAUSEA, MRX1; Start 12/31/16 at 07:00; Stop 12/31/16 at 23:00 Ondansetron HCl (Zofran) 4 mg PRN Q4HRS PRN IV NAUSEA/VOMITING Last administered on 12/28/16t 18:01; Start 12/28/16 at 18:00 Active Scripts Active Hydrocodone-Apap 5-325 (Hydrocodone Bit/Acetaminophen) 1 Each Tablet 1 Tab PO PRN Q6HRS PRN Reported Children's Aspirin (Aspirin) 81 Mg Tab.chew 81 Mg PO DAILY Tramadol Hcl 50 Mg Tablet 50 Mg PO Q6H PRN Hydrochlorothiazide Tablet (Hydrochlorothiazide) 25 Mg Tablet 25 Mg PO DAILY Losartan Potassium 100 Mg Tablet 100 Mg PO DAILY Crestor (Rosuvastatin Calcium) 40 Mg Tablet 40 Mg PO HS Amlodipine Besylate 10 Mg Tablet 10 Mg PO DAILY Carvedilol 25 Mg Tablet 25 Mg PO BID Tamsulosin Hcl 0.4 Mg Cap.er.24h 0.4 Mg PO DAILY Niaspan (Niacin) 500 Mg Tab.er.24h 500 Mg PO HS Vitals/I & O Vital Sign - Last 24 Hours 12/28/16 12/28/16 12/28/16 12/28/16 10:47 14:49 16:19 16:19 Temp 98.0 98.1 98.0 98.1 Pulse 69 74 66 Resp 19 18 16 B/P (MAP) 116/63 (80) 133/81 (98) 118/77 Pulse Ox 97 96 99 O2 Delivery Nasal Cannula Room Air Room Air O2 Flow Rate 2.0 12/28/16 12/28/16 12/28/16 12/28/16 16:38 16:49 16:53 17:08 Pulse 68 68 69 Resp 16 B/P (MAP) 123/70 (87) 125/75 (92) 120/71 (87) O2 Delivery Room Air 12/28/16 12/28/16 12/28/16 12/28/16 17:23 17:38 17:41 19:04 Temp 97.9 97.9 Pulse 66 69 68 77 Resp 18 B/P (MAP) 122/74 (90) 125/80 (95) 125/80 115/64 (81) Pulse Ox 99 O2 Delivery Room Air 12/28/16 12/28/16 12/28/16 12/28/16 19:30 20:00 20:30 21:30 Pulse 70 70 82 B/P (MAP) 109/59 (76) 108/66 (80) 138/67 (90) O2 Delivery Room Air 12/28/16 12/29/16 12/29/16 12/29/16 23:27 03:12 07:15 07:51 Temp 98.3 98.0 98.9 98.3 98.0 98.9 Pulse 61 67 76 Resp 16 16 18 B/P (MAP) 115/71 (86) 123/73 (90) 134/80 (98) Pulse Ox 94 95 100 O2 Delivery Room Air Room Air Room Air Room Air 12/29/16 12/29/16 09:22 09:22 Pulse 76 76 B/P (MAP) 134/80 134/80 Intake and Output 12/28/16 12/28/16 12/29/16 14:59 22:59 06:59 Intake Total 660 ml Output Total 200 ml 570 ml Balance -200 ml 90 ml ISAIAH HELTON MD Dec 29, 2016 10:09
--- NOTE | 2016-12-29 10:54 | PDOC ---
SHELLILIANNE GARDUNO SOLAR FIELD SERVICE TECHNICIAN 12/29/16 1053: CARDIO Progress Notes Date and Time Date of Service 12/29/2016 Time of Evaluation 1042 Subjective Subjective: No Chest Pain, No shortness of breath, No Palpitations, No Dizziness Vitals Vitals Vital Signs Date Time Temp Pulse Resp B/P (MAP) Pulse Ox O2 Delivery O2 Flow Rate FiO2 12/29/16 09:22 76 134/80 12/29/16 07:51 Room Air 12/29/16 07:15 98.9 18 100 98.9 12/28/16 10:47 2.0 Weight Weight [ ] Stability Assessment Stability Assess.: other (agreeable with discharge ) Input and Output Intake and Output Intake and Output 12/29/16 07:00 Intake Total 660 ml Output Total 770 ml Balance -110 ml Intake Oral 660 ml Output Urine Total 770 ml # Voids 3 # Bowel Movements 4 Laboratory Labs Laboratory Tests Test 12/29/16 04:00 Sodium Level 142 mmol/L (136-145) Potassium Level 3.8 mmol/L (3.5-5.1) Chloride Level 107 mmol/L (98-107) Carbon Dioxide Level 24 mmol/L (21-32) Anion Gap 11 (6-14) Blood Urea Nitrogen 23 mg/dL (8-26) Creatinine 1.7 mg/dL (0.7-1.3) Estimated GFR (Cockcroft-Gault) 48.5 Glucose Level 97 mg/dL (70-99) Calcium Level 8.7 mg/dL (8.5-10.1) Phosphorus Level 3.0 mg/dL (2.6-4.7) Magnesium Level 2.1 mg/dL (1.8-2.4) Albumin 3.4 g/dL (3.4-5.0) Microbiology Micro Microbiology 12/25/16 Urine Culture - Final, Complete 12/25/16 Urine Culture Result 1 (JAMMIE) - Final, Complete Physical Exam HEENT: Neck Supple W Full Motion Chest: Symmetric LUNGS: Clear to Auscultation Heart: S1S2, RRR, other (tele: SR) Abdomen: Soft N/T Extremities: Other (right radial arteriotomy C/D/I; 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 Acute on chronic systolic heart failure compensated continue medical management with diureseis 2. Cardiomyopathy, ischemic echo revealed depressed LVEF 20-25% continue BB, ARB and diuretics may benefit from aldosterone agonist if Cr will allow - re-evaluate in the outpt setting 3. CAD cath yesterday BMS to RCA and LAD - DAPT X 2-4 weeks; preferably one year 4. Hypertension controlled with meds 5. CKD 3; CR to 1.7 after contrast use, though consistent with previous levels 6. Hyperlipidemia LDLs = 201; continue high dose statin therapy 7. Obstructive uropathy; s/p ureteral stenting. Nuc med renal scan demonstrates left hydronephrosis with evidence of obstruction to follow up @ [facility] may need Plavix held to change left ureteral stent in 2 - 4 weeks agreeable with discharge cardiology f/u in 4 weeks. GUANACO SERVIN MD 12/29/16 1119: CARDIO Progress Notes Plan Plan Pt. seen and examined. Agree with above AGRONOMY ADVISOR note. No acute events overnight. Discussed with Dr. Henry, hold on uro procedure given recent stents for at least 4 weeks. Right radial site is c/d/i. No other issues today. Ok to dc on asa, plavix. LIANNE RAO APRN Dec 29, 2016 10:53 GUANACO SERVIN MD Dec 29, 2016 11:19
[2016-12-29 11:00] VITALS: BP 116/70
[2016-12-29] MEDS: IV NORMAL SALINE 1000ML BAG 1,000 ML IV SCH (12:00)
--- NOTE | 2016-12-29 12:03 | PDOC ---
GENERAL General: vss and afebrile. voices no complaints. creatinine 1.7 this am. chest clear and heart regular. stents to LAD and RCA yesterday. anything on hold with stones, stent, and left hydronephrosis due to need for anticoagulation with stents. continue same. Problems: VITAL SIGNS Vital Signs: Vital Signs Date Time Temp Pulse Resp B/P (MAP) Pulse Ox O2 Delivery O2 Flow Rate FiO2 12/29/16 11:00 99.3 73 20 116/70 (85) 98 Room Air 99.3 12/28/16 10:47 2.0 I & O I & O Intake and Output 12/29/16 07:00 Intake Total 660 ml Output Total 770 ml Balance -110 ml Intake Oral 660 ml Output Urine Total 770 ml # Voids 3 # Bowel Movements 4 ALLERGIES Allergies: Allergies Coded Allergies Type Severity Reaction Last Updated Verified No Known Drug Allergies 11/13/13 No MEDS Medications: Current Medications Medications (Trade) Dose Ordered Sig/Umu Start Time Stop Time Status Last Admin Dose Admin Acetaminophen (Tylenol) 650 mg PRN Q6HRS PRN 12/28/16 16:45 Acetaminophen/ Hydrocodone Bitart (Lortab 5/325) 1 tab PRN Q6HRS PRN 12/24/16 09:00 12/27/16 07:26 1 TAB Acetylcysteine (Mucomyst 20% Oral Solution) 1,200 mg BID 12/27/16 21:00 12/29/16 20:59 12/29/16 09:29 1,200 MG Albuterol/ Ipratropium (Duoneb) 3 ml RTQID 12/24/16 08:00 12/25/16 07:59 DC 12/24/16 19:16 3 ML Amlodipine Besylate (Norvasc) 5 mg DAILY 12/27/16 09:00 12/28/16 08:40 DC 12/27/16 08:03 5 MG Aspirin (Shikha Aspirin) 325 mg 1X ONCE 12/28/16 16:30 12/28/16 16:31 DC 12/28/16 16:30 325 MG Aspirin (Children'S Aspirin) 81 mg DAILY 12/24/16 09:30 12/28/16 16:44 DC 12/27/16 08:02 81 MG Aspirin (Ecotrin) 325 mg DAILYWBKFT 12/29/16 08:00 12/29/16 09:22 325 MG Atorvastatin Calcium (Lipitor) 80 mg QHS 12/24/16 21:00 12/28/16 20:30 80 MG Azithromycin 250 ml @ 250 mls/hr 1X ONCE 12/24/16 03:30 12/24/16 04:29 DC 12/24/16 03:31 250 MLS/HR Benzonatate (Tessalon Perle) 100 mg BID 12/24/16 21:00 12/29/16 09:21 100 MG Bivalirudin (Angiomax) 250 mg 1X ONCE 12/28/16 16:00 12/28/16 16:01 DC 12/28/16 16:17 250 MG Carvedilol (Coreg) 12.5 mg BIDWMEALS 12/25/16 10:00 12/29/16 09:22 12.5 MG Ceftriaxone Sodium 50 ml @ 100 mls/hr 1X ONCE 12/24/16 03:30 12/24/16 03:59 DC 12/24/16 03:31 100 MLS/HR Clopidogrel Bisulfate (Plavix) 75 mg DAILYWBKFT 12/29/16 08:00 12/29/16 09:29 75 MG Fentanyl Citrate (Fentanyl 2ml Vial) 50 mcg PRN Q5MIN PRN 12/31/16 07:00 12/31/16 23:00 Fentanyl Citrate (Fentanyl 5ml Vial) 250 mcg 1X ONCE 12/28/16 15:30 12/28/16 15:31 DC 12/28/16 16:19 250 MCG Furosemide (Lasix) 40 mg DAILY 12/27/16 13:45 12/29/16 09:21 40 MG Heparin Sodium (Porcine) (Heparin Sodium) 2,500 unit 1X ONCE 12/28/16 15:30 12/28/16 15:31 DC 12/28/16 16:20 2,500 UNIT Heparin Sodium/ Sodium Chloride 1,000 unit 1X ONCE 12/28/16 15:30 12/28/16 15:31 DC 12/28/16 16:20 1,000 UNIT Hydrochlorothiazide (Hydrodiuril) 25 mg DAILY 12/24/16 09:30 12/25/16 08:51 DC 12/24/16 10:30 25 MG Hydromorphone HCl (Dilaudid) 0.5 mg PRN Q10MIN PRN 12/31/16 07:00 12/31/16 23:00 Iodixanol (Visipaque 320) 100 ml 1X ONCE 12/28/16 15:30 12/28/16 15:31 DC Lidocaine HCl 2 ml PRN 1X PRN 12/31/16 07:00 12/31/16 23:00 Losartan Potassium (Cozaar) 50 mg DAILY 12/25/16 10:00 12/29/16 09:22 50 MG Magnesium Sulfate/ Dextrose 50 ml @ 25 mls/hr PRN DAILY PRN 12/25/16 17:45 Midazolam HCl (Versed) 5 mg 1X ONCE 12/28/16 15:30 12/28/16 15:31 DC 12/28/16 16:18 1 MG Morphine Sulfate 1 mg PRN Q10MIN PRN 12/31/16 07:00 12/31/16 23:00 Nitroglycerin (Nitroglycerin) 200 mcg STK-MED ONCE 12/28/16 16:05 12/28/16 16:06 DC Nitroglycerin (Nitrostat) 0.4 mg PRN Q5MIN PRN 12/28/16 16:45 Ondansetron HCl (Zofran) 4 mg PRN Q4HRS PRN 12/28/16 18:00 12/28/16 18:01 4 MG Pneumococcal Polyvalent Vaccine (Do NOT chart on this placeholder) 1 each 1X ONCE 12/24/16 09:00 12/24/16 09:01 UNV Pneumococcal Polyvalent Vaccine (Pneumovax 23) 0.5 ml ONCE ONCE 12/24/16 09:00 12/24/16 09:02 DC 12/24/16 10:25 0.5 ML Potassium Chloride (Klor-Con) 10 meq DAILYAC 12/29/16 07:30 12/29/16 09:21 10 MEQ Prochlorperazine Edisylate (Compazine) 5 mg PACU PRN PRN 12/31/16 07:00 12/31/16 23:00 Ringer's Solution 1,000 ml @ 30 mls/hr Q24H 12/31/16 07:00 12/31/16 18:59 Sodium Chloride 1,000 ml @ 75 mls/hr [id number] 12/28/16 17:00 12/28/16 17:49 75 MLS/HR Tamsulosin HCl (Flomax) 0.4 mg DAILY 12/24/16 09:30 12/29/16 09:21 0.4 MG Tramadol HCl (Ultram) 50 mg PRN Q6HRS PRN 12/24/16 09:00 12/27/16 21:33 50 MG Verapamil HCl (Verapamil) 2.5 mg 1X ONCE 12/28/16 15:30 12/28/16 15:31 DC 12/28/16 16:19 2.5 MG LAB Lab: Laboratory Tests Test 12/29/16 04:00 Sodium Level 142 mmol/L (136-145) Potassium Level 3.8 mmol/L (3.5-5.1) Chloride Level 107 mmol/L (98-107) Carbon Dioxide Level 24 mmol/L (21-32) Anion Gap 11 (6-14) Blood Urea Nitrogen 23 mg/dL (8-26) Creatinine 1.7 mg/dL (0.7-1.3) Estimated GFR (Cockcroft-Gault) 48.5 Glucose Level 97 mg/dL (70-99) Calcium Level 8.7 mg/dL (8.5-10.1) Phosphorus Level 3.0 mg/dL (2.6-4.7) Magnesium Level 2.1 mg/dL (1.8-2.4) Albumin 3.4 g/dL (3.4-5.0) ANUEL ELISE MD Dec 29, 2016 12:02
--- NOTE | 2016-12-29 13:44 | PDOC ---
SUBJECTIVE ROS DENNIS/ ? CKD III Doing Ok overall - feeling better today CVS: no Orthopnea, no CP RESP: no SOB, no ROGERS GI: no Nausea, no Vomiting : no Dysuria, no Urgency OBJECTIVE Vital Signs Vital Signs Date Time Temp Pulse Resp B/P (MAP) Pulse Ox O2 Delivery O2 Flow Rate FiO2 12/29/16 11:00 99.3 73 20 116/70 (85) 98 Room Air 99.3 12/28/16 10:47 2.0 I & 0 Intake and Output 12/29/16 07:00 Intake Total 660 ml Output Total 770 ml Balance -110 ml Intake Oral 660 ml Output Urine Total 770 ml # Voids 3 # Bowel Movements 4 PHYSICAL EXAM Physical Exam General Appearance: Awake Alert Oriented x 3 In no Distress Eyes: Vision Unchanged Conjunctiva Normal EN: No EN Drainage Mucous Memb. moist Neck: no JVD min JVP Supple no Thyromegaly CVS: S1 S2 ? Murmur No Gallop No Rub no Edema Resp: no Rales no Rhonchi no Acc. Muscle use GI: BS +ve NO Bruit Non Tender Non Distended : no CVA tenderness; no Suprapubic Tenderness Assessment & Plan DENNIS : better today; most likely Decompensation from cardiac standpoint, vs due to Loss of Function on Left (Obstructive Uropathy) Current FLuid and E-lyte status does not necessitate emergent need for Dialysis. Will re-evaluate for Dialysis in am CKD III - ? non-functioning Lt Kidney vs Obstruction - most recent OP Creat is 1.[address] Mix office.defer to URO for stent replacement/ removal since hydro still persists ian now that he will be on APT CHF - much improved after Diuresis . Currently he seems well compensated - recheck CXR was clear - clinically appears to be doing well currenlty ? CAD/ New onset CMyopahty - noted LHC/ PCI - IVF and NAC was ordered. lowish UO - watch trend - (? not well recorded due to lack of soliman) - Creat is better though HTN: Current BP meds reviewed. See orders for changes. H/o stones and now s/p Lt Ureteral stenting in 03/[address] Veronica ; consult dr Henry - defer timing of stent replacement/ removal in setting of APT to dr Henry and Cardiology COMMENT/RELEVANT DATA Meds Current Medications Medications (Trade) Dose Ordered Sig/Umu Start Time Stop Time Status Last Admin Dose Admin Acetaminophen (Tylenol) 650 mg PRN Q6HRS PRN 12/28/16 16:45 Acetaminophen/ Hydrocodone Bitart (Lortab 5/325) 1 tab PRN Q6HRS PRN 12/24/16 09:00 12/27/16 07:26 1 TAB Acetylcysteine (Mucomyst 20% Oral Solution) 1,200 mg BID 12/27/16 21:00 12/29/16 20:59 12/29/16 09:29 1,200 MG Albuterol/ Ipratropium (Duoneb) 3 ml RTQID 12/24/16 08:00 12/25/16 07:59 DC 12/24/16 19:16 3 ML Amlodipine Besylate (Norvasc) 5 mg DAILY 12/27/16 09:00 12/28/16 08:40 DC 12/27/16 08:03 5 MG Aspirin (Shikha Aspirin) 325 mg 1X ONCE 12/28/16 16:30 12/28/16 16:31 DC 12/28/16 16:30 325 MG Aspirin (Children'S Aspirin) 81 mg DAILY 12/24/16 09:30 12/28/16 16:44 DC 12/27/16 08:02 81 MG Aspirin (Ecotrin) 325 mg DAILYWBKFT 12/29/16 08:00 12/29/16 09:22 325 MG Atorvastatin Calcium (Lipitor) 80 mg QHS 12/24/16 21:00 12/28/16 20:30 80 MG Azithromycin 250 ml @ 250 mls/hr 1X ONCE 12/24/16 03:30 12/24/16 04:29 DC 12/24/16 03:31 250 MLS/HR Benzonatate (Tessalon Perle) 100 mg BID 12/24/16 21:00 12/29/16 09:21 100 MG Bivalirudin (Angiomax) 250 mg 1X ONCE 12/28/16 16:00 12/28/16 16:01 DC 12/28/16 16:17 250 MG Carvedilol (Coreg) 12.5 mg BIDWMEALS 12/25/16 10:00 12/29/16 09:22 12.5 MG Ceftriaxone Sodium 50 ml @ 100 mls/hr 1X ONCE 12/24/16 03:30 12/24/16 03:59 DC 12/24/16 03:31 100 MLS/HR Clopidogrel Bisulfate (Plavix) 75 mg DAILYWBKFT 12/29/16 08:00 12/29/16 09:29 75 MG Fentanyl Citrate (Fentanyl 2ml Vial) 50 mcg PRN Q5MIN PRN 12/31/16 07:00 12/31/16 23:00 Fentanyl Citrate (Fentanyl 5ml Vial) 250 mcg 1X ONCE 12/28/16 15:30 12/28/16 15:31 DC 12/28/16 16:19 250 MCG Furosemide (Lasix) 40 mg DAILY 12/27/16 13:45 12/29/16 09:21 40 MG Heparin Sodium (Porcine) (Heparin Sodium) 2,500 unit 1X ONCE 12/28/16 15:30 12/28/16 15:31 DC 12/28/16 16:20 2,500 UNIT Heparin Sodium/ Sodium Chloride 1,000 unit 1X ONCE 12/28/16 15:30 12/28/16 15:31 DC 12/28/16 16:20 1,000 UNIT Hydrochlorothiazide (Hydrodiuril) 25 mg DAILY 12/24/16 09:30 12/25/16 08:51 DC 12/24/16 10:30 25 MG Hydromorphone HCl (Dilaudid) 0.5 mg PRN Q10MIN PRN 12/31/16 07:00 12/31/16 23:00 Iodixanol (Visipaque 320) 100 ml 1X ONCE 12/28/16 15:30 12/28/16 15:31 DC Lidocaine HCl 2 ml PRN 1X PRN 12/31/16 07:00 12/31/16 23:00 Losartan Potassium (Cozaar) 50 mg DAILY 12/25/16 10:00 12/29/16 09:22 50 MG Magnesium Sulfate/ Dextrose 50 ml @ 25 mls/hr PRN DAILY PRN 12/25/16 17:45 Midazolam HCl (Versed) 5 mg 1X ONCE 12/28/16 15:30 12/28/16 15:31 DC 12/28/16 16:18 1 MG Morphine Sulfate 1 mg PRN Q10MIN PRN 12/31/16 07:00 12/31/16 23:00 Nitroglycerin (Nitroglycerin) 200 mcg STK-MED ONCE 12/28/16 16:05 12/28/16 16:06 DC Nitroglycerin (Nitrostat) 0.4 mg PRN Q5MIN PRN 12/28/16 16:45 Ondansetron HCl (Zofran) 4 mg PRN Q4HRS PRN 12/28/16 18:00 12/28/16 18:01 4 MG Pneumococcal Polyvalent Vaccine (Do NOT chart on this placeholder) 1 each 1X ONCE 12/24/16 09:00 12/24/16 09:01 UNV Pneumococcal Polyvalent Vaccine (Pneumovax 23) 0.5 ml ONCE ONCE 12/24/16 09:00 12/24/16 09:02 DC 12/24/16 10:25 0.5 ML Potassium Chloride (Klor-Con) 10 meq DAILYAC 12/29/16 07:30 12/29/16 09:21 10 MEQ Prochlorperazine Edisylate (Compazine) 5 mg PACU PRN PRN 12/31/16 07:00 12/31/16 23:00 Ringer's Solution 1,000 ml @ 30 mls/hr Q24H 12/31/16 07:00 12/31/16 18:59 Sodium Chloride 1,000 ml @ 75 mls/hr [id number] 12/28/16 17:00 12/28/16 17:49 75 MLS/HR Tamsulosin HCl (Flomax) 0.4 mg DAILY 12/24/16 09:30 12/29/16 09:21 0.4 MG Tramadol HCl (Ultram) 50 mg PRN Q6HRS PRN 12/24/16 09:00 12/27/16 21:33 50 MG Verapamil HCl (Verapamil) 2.5 mg 1X ONCE 12/28/16 15:30 12/28/16 15:31 DC 12/28/16 16:19 2.5 MG Lab Laboratory Tests Test 12/29/16 04:00 Sodium Level 142 mmol/L (136-145) Potassium Level 3.8 mmol/L (3.5-5.1) Chloride Level 107 mmol/L (98-107) Carbon Dioxide Level 24 mmol/L (21-32) Anion Gap 11 (6-14) Blood Urea Nitrogen 23 mg/dL (8-26) Creatinine 1.7 mg/dL (0.7-1.3) Estimated GFR (Cockcroft-Gault) 48.5 Glucose Level 97 mg/dL (70-99) Calcium Level 8.7 mg/dL (8.5-10.1) Phosphorus Level 3.0 mg/dL (2.6-4.7) Magnesium Level 2.1 mg/dL (1.8-2.4) Albumin 3.4 g/dL (3.4-5.0) CONTRERAS MILLER MD Dec 29, 2016 13:44
[2016-12-29 15:00] VITALS: BP 110/66
--- NOTE | 2016-12-29 16:27 | PDOC ---
PULMONARY PROGRESS NOTES Subjective NO INCREASE SOA Vitals Vital Signs Date Time Temp Pulse Resp B/P (MAP) Pulse Ox O2 Delivery O2 Flow Rate FiO2 12/29/16 15:00 99.2 68 18 110/66 (81) 98 Room Air 99.2 12/28/16 10:47 2.0 ROS: No Nausea, No Chest Pain, No Abdominal Pain, No Increase Cough Lungs: Clear Cardiovascular: S1, S2 Abdomen: Soft Neuro Exam: Alert Extremities: No Edema Labs Laboratory Tests Test 12/28/16 04:30 12/28/16 05:00 12/29/16 04:00 Sodium Level 143 mmol/L (136-145) 142 mmol/L (136-145) Potassium Level 4.2 mmol/L (3.5-5.1) 3.8 mmol/L (3.5-5.1) Chloride Level 107 mmol/L (98-107) 107 mmol/L (98-107) Carbon Dioxide Level 26 mmol/L (21-32) 24 mmol/L (21-32) Anion Gap 10 (6-14) 11 (6-14) Blood Urea Nitrogen 27 mg/dL (8-26) 23 mg/dL (8-26) Creatinine 1.5 mg/dL (0.7-1.3) 1.7 mg/dL (0.7-1.3) Estimated GFR (Cockcroft-Gault) 56.0 48.5 Glucose Level 94 mg/dL (70-99) 97 mg/dL (70-99) Calcium Level 8.6 mg/dL (8.5-10.1) 8.7 mg/dL (8.5-10.1) Phosphorus Level 3.9 mg/dL (2.6-4.7) 3.0 mg/dL (2.6-4.7) Albumin 3.1 g/dL (3.4-5.0) 3.4 g/dL (3.4-5.0) Magnesium Level 2.1 mg/dL (1.8-2.4) 2.1 mg/dL (1.8-2.4) Laboratory Tests Test 12/29/16 04:00 Sodium Level 142 mmol/L (136-145) Potassium Level 3.8 mmol/L (3.5-5.1) Chloride Level 107 mmol/L (98-107) Carbon Dioxide Level 24 mmol/L (21-32) Anion Gap 11 (6-14) Blood Urea Nitrogen 23 mg/dL (8-26) Creatinine 1.7 mg/dL (0.7-1.3) Estimated GFR (Cockcroft-Gault) 48.5 Glucose Level 97 mg/dL (70-99) Calcium Level 8.7 mg/dL (8.5-10.1) Phosphorus Level 3.0 mg/dL (2.6-4.7) Magnesium Level 2.1 mg/dL (1.8-2.4) Albumin 3.4 g/dL (3.4-5.0) Medications Active Scripts Medications Dose Route/Sig Max Daily Dose Days Date Category Children's Aspirin (Aspirin) 81 Mg Tab.chew 81 Mg PO DAILY 03/24/16 Reported Hydrocodone-Apap 5-325 (Hydrocodone Bit/Acetaminophen) 1 Each Tablet 1 Tab PO PRN Q6HRS PRN 03/16/16 Rx Tramadol Hcl 50 Mg Tablet 50 Mg PO Q6H PRN 01/04/14 Reported Hydrochlorothiazide Tablet (Hydrochlorothiazide) 25 Mg Tablet 25 Mg PO DAILY 01/04/14 Reported Losartan Potassium 100 Mg Tablet 100 Mg PO DAILY 01/04/14 Reported Crestor (Rosuvastatin Calcium) 40 Mg Tablet 40 Mg PO HS 01/04/14 Reported Amlodipine Besylate 10 Mg Tablet 10 Mg PO DAILY 01/04/14 Reported Carvedilol 25 Mg Tablet 25 Mg PO BID 01/04/14 Reported Tamsulosin Hcl 0.4 Mg Cap.er.24h 0.4 Mg PO DAILY 01/04/14 Reported Niaspan (Niacin) 500 Mg Tab.er.24h 500 Mg PO HS 01/04/14 Reported Impression . 1. Abnormal x-ray compatible with acute systolic heart failure, possible combination with diastolic heart failure. 2. Coronary artery disease with previous stent placement. 3. Clinical presentation compatible with obstructive sleep apnea. 4. Obesity. 5. Hypertension. 6. Chronic kidney disease. 7. Cardiomyopathy may be new CATh with PCI 1. Two-vessel coronary artery disease 2. Successful PCI/stents placement to the left anterior descending and right coronary arteries. Plan . resp status is compensated off 02 will check noct dest prior to d/c outpt sleep study spoke with MAXI Dawkins MD Dec 29, 2016 16:27
[2016-12-29 19:06] VITALS: BP 130/75
[2016-12-29] MEDS: ATORVASTATIN CALCIUM 40 MG TABLET. PO SCH (20:37)
[2016-12-29 22:55] VITALS: BP 123/75
[2016-12-30] MEDS: IV NORMAL SALINE 1000ML BAG 1,000 ML IV SCH (01:20)
[2016-12-30 03:38] VITALS: BP 122/76
[2016-12-30 05:55] LABS: ALBUMIN 3.3 g/dL (3.4-5.0); CALCIUM 8.8 mg/dL (8.5-10.1); CREATININE 1.5 mg/dL (0.7-1.3); PHOSPHORUS 3.5 mg/dL (2.6-4.7); POTASSIUM 3.6 mmol/L (3.5-5.1)
[2016-12-30 07:40] VITALS: BP 125/85
[2016-12-30] MEDS: BENZONATATE 100 MG CAPSULE. PO SCH (08:52)
[2016-12-30] MEDS: TAMSULOSIN 0.4 MG CAP.ER.24H. PO SCH (08:52)
[2016-12-30] MEDS: ASPIRIN ENTERIC COATED 325 MG TABLET.DR. PO SCH (08:52)
[2016-12-30] MEDS: POTASSIUM CHLORIDE 10 MEQ TABLET.ER. PO SCH (08:53)
[2016-12-30] MEDS: CARVEDILOL 12.5 MG TABLET. PO SCH (08:53)
[2016-12-30] MEDS: CLOPIDOGREL BISULFATE 75 MG TABLET PO SCH (08:53)
[2016-12-30] MEDS: FUROSEMIDE 40 MG TABLET. PO SCH (08:53)
[2016-12-30 08:54] VITALS: BP 125/85
[2016-12-30] MEDS: IV 1/2 NORMAL SALINE 1,000 ML IV SCH (08:54)
[2016-12-30] MEDS: LOSARTAN POTASSIUM 50 MG TABLET. PO SCH (08:54)
--- NOTE | 2016-12-30 09:39 | PDOC ---
SUBJECTIVE ROS DENNIS/ CKD III Doign and feeling much better CVS: no Orthopnea, no CP RESP: no SOB, no ROGERS GI: no Nausea, no Vomiting : no Dysuria, no Urgency OBJECTIVE Vital Signs Vital Signs Date Time Temp Pulse Resp B/P (MAP) Pulse Ox O2 Delivery O2 Flow Rate FiO2 12/30/16 08:54 74 125/85 12/30/16 08:12 Room Air 12/30/16 07:40 98.4 18 99 98.4 I & 0 Intake and Output 12/30/16 07:00 Intake Total 860 ml Balance 860 ml Intake Oral 860 ml # Voids 4 PHYSICAL EXAM Physical Exam General Appearance: Awake Alert Oriented x 3 In no Distress Eyes: Vision Unchanged Conjunctiva Normal EN: No EN Drainage Mucous Memb. moist Neck: no JVD min JVP Supple no Thyromegaly CVS: S1 S2 ? Murmur No Gallop No Rub no Edema Resp: no Rales no Rhonchi no Acc. Muscle use GI: BS +ve NO Bruit Non Tender Non Distended : no CVA tenderness; no Suprapubic Tenderness Assessment & Plan DENNIS : most likely Decompensation (EF 20%) from cardiac standpoint, vs due to Loss of Function on Left (Obstructive Uropathy) Current FLuid and E-lyte status does not necessitate emergent need for Dialysis. Will re-evaluate for Dialysis in am CKD III - ? non-functioning Lt Kidney vs Obstruction - most recent OP Creat is 1.[address] Mix office.defer to URO (at [facility]) for stent replacement/ removal since hydro still persists ian now that he will be on APT CHF - clinically much improved after Diuresis . Currently he seems well compensated ? CAD/ New onset CMyopahty - noted LHC/ PCI - creat stable in 1.5-1.7 range post cath lowish UO - watch trend - (? not well recorded due to lack of soliman) - Creat is better though HTN: Current BP meds reviewed. See orders for changes. H/o stones and now s/p Lt Ureteral stenting in 03/[address] Veronica ; consult dr Henry - defer timing of stent replacement/ removal in setting of APT to dr Henry and Cardiology COMMENT/RELEVANT DATA Meds Current Medications Medications (Trade) Dose Ordered Sig/Umu Start Time Stop Time Status Last Admin Dose Admin Acetaminophen (Tylenol) 650 mg PRN Q6HRS PRN 12/28/16 16:45 Acetaminophen/ Hydrocodone Bitart (Lortab 5/325) 1 tab PRN Q6HRS PRN 12/24/16 09:00 12/27/16 07:26 1 TAB Acetylcysteine (Mucomyst 20% Oral Solution) 1,200 mg BID 12/27/16 21:00 12/29/16 20:59 DC 12/29/16 09:29 1,200 MG Albuterol/ Ipratropium (Duoneb) 3 ml RTQID 12/24/16 08:00 12/25/16 07:59 DC 12/24/16 19:16 3 ML Amlodipine Besylate (Norvasc) 5 mg DAILY 12/27/16 09:00 12/28/16 08:40 DC 12/27/16 08:03 5 MG Aspirin (Shikha Aspirin) 325 mg 1X ONCE 12/28/16 16:30 12/28/16 16:31 DC 12/28/16 16:30 325 MG Aspirin (Children'S Aspirin) 81 mg DAILY 12/24/16 09:30 12/28/16 16:44 DC 12/27/16 08:02 81 MG Aspirin (Ecotrin) 325 mg DAILYWBKFT 12/29/16 08:00 12/30/16 08:52 325 MG Atorvastatin Calcium (Lipitor) 80 mg QHS 12/24/16 21:00 12/29/16 20:37 80 MG Azithromycin 250 ml @ 250 mls/hr 1X ONCE 12/24/16 03:30 12/24/16 04:29 DC 12/24/16 03:31 250 MLS/HR Benzonatate (Tessalon Perle) 100 mg BID 12/24/16 21:00 12/30/16 08:52 100 MG Bivalirudin (Angiomax) 250 mg 1X ONCE 12/28/16 16:00 12/28/16 16:01 DC 12/28/16 16:17 250 MG Carvedilol (Coreg) 12.5 mg BIDWMEALS 12/25/16 10:00 12/30/16 08:53 12.5 MG Ceftriaxone Sodium 50 ml @ 100 mls/hr 1X ONCE 12/24/16 03:30 12/24/16 03:59 DC 12/24/16 03:31 100 MLS/HR Clopidogrel Bisulfate (Plavix) 75 mg DAILYWBKFT 12/29/16 08:00 12/30/16 08:53 75 MG Fentanyl Citrate (Fentanyl 2ml Vial) 50 mcg PRN Q5MIN PRN 12/31/16 07:00 12/31/16 23:00 Fentanyl Citrate (Fentanyl 5ml Vial) 250 mcg 1X ONCE 12/28/16 15:30 12/28/16 15:31 DC 12/28/16 16:19 250 MCG Furosemide (Lasix) 40 mg DAILY 12/27/16 13:45 12/30/16 08:53 40 MG Heparin Sodium (Porcine) (Heparin Sodium) 2,500 unit 1X ONCE 12/28/16 15:30 12/28/16 15:31 DC 12/28/16 16:20 2,500 UNIT Heparin Sodium/ Sodium Chloride 1,000 unit 1X ONCE 12/28/16 15:30 12/28/16 15:31 DC 12/28/16 16:20 1,000 UNIT Hydrochlorothiazide (Hydrodiuril) 25 mg DAILY 12/24/16 09:30 12/25/16 08:51 DC 12/24/16 10:30 25 MG Hydromorphone HCl (Dilaudid) 0.5 mg PRN Q10MIN PRN 12/31/16 07:00 12/31/16 23:00 Iodixanol (Visipaque 320) 100 ml 1X ONCE 12/28/16 15:30 12/28/16 15:31 DC Lidocaine HCl 2 ml PRN 1X PRN 12/31/16 07:00 12/31/16 23:00 Losartan Potassium (Cozaar) 50 mg DAILY 12/25/16 10:00 12/30/16 08:54 50 MG Magnesium Sulfate/ Dextrose 50 ml @ 25 mls/hr PRN DAILY PRN 12/25/16 17:45 Midazolam HCl (Versed) 5 mg 1X ONCE 12/28/16 15:30 12/28/16 15:31 DC 12/28/16 16:18 1 MG Morphine Sulfate 1 mg PRN Q10MIN PRN 12/31/16 07:00 12/31/16 23:00 Nitroglycerin (Nitroglycerin) 200 mcg STK-MED ONCE 12/28/16 16:05 12/28/16 16:06 DC Nitroglycerin (Nitrostat) 0.4 mg PRN Q5MIN PRN 12/28/16 16:45 Ondansetron HCl (Zofran) 4 mg PRN Q4HRS PRN 12/28/16 18:00 12/28/16 18:01 4 MG Pneumococcal Polyvalent Vaccine (Do NOT chart on this placeholder) 1 each 1X ONCE 12/24/16 09:00 12/24/16 09:01 UNV Pneumococcal Polyvalent Vaccine (Pneumovax 23) 0.5 ml ONCE ONCE 12/24/16 09:00 12/24/16 09:02 DC 12/24/16 10:25 0.5 ML Potassium Chloride (Klor-Con) 10 meq DAILYAC 12/29/16 07:30 12/30/16 08:53 10 MEQ Prochlorperazine Edisylate (Compazine) 5 mg PACU PRN PRN 12/31/16 07:00 12/31/16 23:00 Ringer's Solution 1,000 ml @ 30 mls/hr Q24H 12/31/16 07:00 12/31/16 18:59 Sodium Chloride 1,000 ml @ 75 mls/hr [id number] 12/28/16 17:00 12/28/16 17:49 75 MLS/HR Tamsulosin HCl (Flomax) 0.4 mg DAILY 12/24/16 09:30 12/30/16 08:52 0.4 MG Tramadol HCl (Ultram) 50 mg PRN Q6HRS PRN 12/24/16 09:00 12/27/16 21:33 50 MG Verapamil HCl (Verapamil) 2.5 mg 1X ONCE 12/28/16 15:30 12/28/16 15:31 DC 12/28/16 16:19 2.5 MG Lab Laboratory Tests Test 12/30/16 04:30 Sodium Level 143 mmol/L (136-145) Potassium Level 3.6 mmol/L (3.5-5.1) Chloride Level 110 mmol/L (98-107) Carbon Dioxide Level 23 mmol/L (21-32) Anion Gap 10 (6-14) Blood Urea Nitrogen 17 mg/dL (8-26) Creatinine 1.5 mg/dL (0.7-1.3) Estimated GFR (Cockcroft-Gault) 56.0 Glucose Level 91 mg/dL (70-99) Calcium Level 8.8 mg/dL (8.5-10.1) Phosphorus Level 3.5 mg/dL (2.6-4.7) Magnesium Level 2.0 mg/dL (1.8-2.4) Albumin 3.3 g/dL (3.4-5.0) CONTRERAS MILLER MD Dec 30, 2016 09:39
--- NOTE | 2016-12-30 10:10 | PDOC ---
GENERAL General: see discharge summary. Problems: VITAL SIGNS Vital Signs: Vital Signs Date Time Temp Pulse Resp B/P (MAP) Pulse Ox O2 Delivery O2 Flow Rate FiO2 12/30/16 08:54 74 125/85 12/30/16 08:12 Room Air 12/30/16 07:40 98.4 18 99 98.4 I & O I & O Intake and Output 12/30/16 07:00 Intake Total 860 ml Balance 860 ml Intake Oral 860 ml # Voids 4 ALLERGIES Allergies: Allergies Coded Allergies Type Severity Reaction Last Updated Verified No Known Drug Allergies 11/13/13 No MEDS Medications: Current Medications Medications (Trade) Dose Ordered Sig/Umu Start Time Stop Time Status Last Admin Dose Admin Acetaminophen (Tylenol) 650 mg PRN Q6HRS PRN 12/28/16 16:45 Acetaminophen/ Hydrocodone Bitart (Lortab 5/325) 1 tab PRN Q6HRS PRN 12/24/16 09:00 12/27/16 07:26 1 TAB Acetylcysteine (Mucomyst 20% Oral Solution) 1,200 mg BID 12/27/16 21:00 12/29/16 20:59 DC 12/29/16 09:29 1,200 MG Albuterol/ Ipratropium (Duoneb) 3 ml RTQID 12/24/16 08:00 12/25/16 07:59 DC 12/24/16 19:16 3 ML Amlodipine Besylate (Norvasc) 5 mg DAILY 12/27/16 09:00 12/28/16 08:40 DC 12/27/16 08:03 5 MG Aspirin (Shikha Aspirin) 325 mg 1X ONCE 12/28/16 16:30 12/28/16 16:31 DC 12/28/16 16:30 325 MG Aspirin (Children'S Aspirin) 81 mg DAILY 12/24/16 09:30 12/28/16 16:44 DC 12/27/16 08:02 81 MG Aspirin (Ecotrin) 325 mg DAILYWBKFT 12/29/16 08:00 12/30/16 08:52 325 MG Atorvastatin Calcium (Lipitor) 80 mg QHS 12/24/16 21:00 12/29/16 20:37 80 MG Azithromycin 250 ml @ 250 mls/hr 1X ONCE 12/24/16 03:30 12/24/16 04:29 DC 12/24/16 03:31 250 MLS/HR Benzonatate (Tessalon Perle) 100 mg BID 12/24/16 21:00 12/30/16 08:52 100 MG Bivalirudin (Angiomax) 250 mg 1X ONCE 12/28/16 16:00 12/28/16 16:01 DC 12/28/16 16:17 250 MG Carvedilol (Coreg) 12.5 mg BIDWMEALS 12/25/16 10:00 12/30/16 08:53 12.5 MG Ceftriaxone Sodium 50 ml @ 100 mls/hr 1X ONCE 12/24/16 03:30 12/24/16 03:59 DC 12/24/16 03:31 100 MLS/HR Clopidogrel Bisulfate (Plavix) 75 mg DAILYWBKFT 12/29/16 08:00 12/30/16 08:53 75 MG Fentanyl Citrate (Fentanyl 2ml Vial) 50 mcg PRN Q5MIN PRN 12/31/16 07:00 12/31/16 23:00 Fentanyl Citrate (Fentanyl 5ml Vial) 250 mcg 1X ONCE 12/28/16 15:30 12/28/16 15:31 DC 12/28/16 16:19 250 MCG Furosemide (Lasix) 40 mg DAILY 12/27/16 13:45 12/30/16 08:53 40 MG Heparin Sodium (Porcine) (Heparin Sodium) 2,500 unit 1X ONCE 12/28/16 15:30 12/28/16 15:31 DC 12/28/16 16:20 2,500 UNIT Heparin Sodium/ Sodium Chloride 1,000 unit 1X ONCE 12/28/16 15:30 12/28/16 15:31 DC 12/28/16 16:20 1,000 UNIT Hydrochlorothiazide (Hydrodiuril) 25 mg DAILY 12/24/16 09:30 12/25/16 08:51 DC 12/24/16 10:30 25 MG Hydromorphone HCl (Dilaudid) 0.5 mg PRN Q10MIN PRN 12/31/16 07:00 12/31/16 23:00 Iodixanol (Visipaque 320) 100 ml 1X ONCE 12/28/16 15:30 12/28/16 15:31 DC Lidocaine HCl 2 ml PRN 1X PRN 12/31/16 07:00 12/31/16 23:00 Losartan Potassium (Cozaar) 50 mg DAILY 12/25/16 10:00 12/30/16 08:54 50 MG Magnesium Sulfate/ Dextrose 50 ml @ 25 mls/hr PRN DAILY PRN 12/25/16 17:45 Midazolam HCl (Versed) 5 mg 1X ONCE 12/28/16 15:30 12/28/16 15:31 DC 12/28/16 16:18 1 MG Morphine Sulfate 1 mg PRN Q10MIN PRN 12/31/16 07:00 12/31/16 23:00 Nitroglycerin (Nitroglycerin) 200 mcg STK-MED ONCE 12/28/16 16:05 12/28/16 16:06 DC Nitroglycerin (Nitrostat) 0.4 mg PRN Q5MIN PRN 12/28/16 16:45 Ondansetron HCl (Zofran) 4 mg PRN Q4HRS PRN 12/28/16 18:00 12/28/16 18:01 4 MG Pneumococcal Polyvalent Vaccine (Do NOT chart on this placeholder) 1 each 1X ONCE 12/24/16 09:00 12/24/16 09:01 UNV Pneumococcal Polyvalent Vaccine (Pneumovax 23) 0.5 ml ONCE ONCE 12/24/16 09:00 12/24/16 09:02 DC 12/24/16 10:25 0.5 ML Potassium Chloride (Klor-Con) 10 meq DAILYAC 12/29/16 07:30 12/30/16 08:53 10 MEQ Prochlorperazine Edisylate (Compazine) 5 mg PACU PRN PRN 12/31/16 07:00 12/31/16 23:00 Ringer's Solution 1,000 ml @ 30 mls/hr Q24H 12/31/16 07:00 12/31/16 18:59 Sodium Chloride 1,000 ml @ 75 mls/hr [id number] 12/28/16 17:00 12/28/16 17:49 75 MLS/HR Tamsulosin HCl (Flomax) 0.4 mg DAILY 12/24/16 09:30 12/30/16 08:52 0.4 MG Tramadol HCl (Ultram) 50 mg PRN Q6HRS PRN 12/24/16 09:00 12/27/16 21:33 50 MG Verapamil HCl (Verapamil) 2.5 mg 1X ONCE 12/28/16 15:30 12/28/16 15:31 DC 12/28/16 16:19 2.5 MG LAB Lab: Laboratory Tests Test 12/30/16 04:30 Sodium Level 143 mmol/L (136-145) Potassium Level 3.6 mmol/L (3.5-5.1) Chloride Level 110 mmol/L (98-107) Carbon Dioxide Level 23 mmol/L (21-32) Anion Gap 10 (6-14) Blood Urea Nitrogen 17 mg/dL (8-26) Creatinine 1.5 mg/dL (0.7-1.3) Estimated GFR (Cockcroft-Gault) 56.0 Glucose Level 91 mg/dL (70-99) Calcium Level 8.8 mg/dL (8.5-10.1) Phosphorus Level 3.5 mg/dL (2.6-4.7) Magnesium Level 2.0 mg/dL (1.8-2.4) Albumin 3.3 g/dL (3.4-5.0) ANUEL ELISE MD Dec 30, 2016 10:10
[2016-12-30] MEDS ORDERED: FURO-68 PO (10:59)
[2016-12-30] MEDS ORDERED: CARV12.5 PO (10:59)
[2016-12-30] MEDS ORDERED: TAMS0.4C2 PO (10:59)
[2016-12-30] MEDS ORDERED: POTA10TA12 PO (10:59)
[2016-12-30] MEDS ORDERED: ASPI325T8 PO (10:59)
[2016-12-30] MEDS ORDERED: ACET650S19 PO (10:59)
[2016-12-30] MEDS ORDERED: LOSA50TA6 PO (10:59)
[2016-12-30] MEDS ORDERED: NITR0.4T22 SL (10:59)
[2016-12-30] MEDS ORDERED: ATORVASTATIN CA80 MG PO (10:59)
[2016-12-30] MEDS ORDERED: CLOP75TA PO (10:59)
--- NOTE | 2016-12-30 13:13 | PDOC ---
PULMONARY PROGRESS NOTES Subjective NO INCREASE SOA Vitals Vital Signs Date Time Temp Pulse Resp B/P (MAP) Pulse Ox O2 Delivery O2 Flow Rate FiO2 12/30/16 08:54 74 125/85 12/30/16 08:12 Room Air 12/30/16 07:40 98.4 18 99 98.4 ROS: No Nausea, No Chest Pain, No Abdominal Pain, No Increase Cough Lungs: Clear Cardiovascular: S1, S2 Abdomen: Soft Neuro Exam: Alert Extremities: No Edema Labs Laboratory Tests Test 12/29/16 04:00 12/30/16 04:30 Sodium Level 142 mmol/L (136-145) 143 mmol/L (136-145) Potassium Level 3.8 mmol/L (3.5-5.1) 3.6 mmol/L (3.5-5.1) Chloride Level 107 mmol/L (98-107) 110 mmol/L (98-107) Carbon Dioxide Level 24 mmol/L (21-32) 23 mmol/L (21-32) Anion Gap 11 (6-14) 10 (6-14) Blood Urea Nitrogen 23 mg/dL (8-26) 17 mg/dL (8-26) Creatinine 1.7 mg/dL (0.7-1.3) 1.5 mg/dL (0.7-1.3) Estimated GFR (Cockcroft-Gault) 48.5 56.0 Glucose Level 97 mg/dL (70-99) 91 mg/dL (70-99) Calcium Level 8.7 mg/dL (8.5-10.1) 8.8 mg/dL (8.5-10.1) Phosphorus Level 3.0 mg/dL (2.6-4.7) 3.5 mg/dL (2.6-4.7) Magnesium Level 2.1 mg/dL (1.8-2.4) 2.0 mg/dL (1.8-2.4) Albumin 3.4 g/dL (3.4-5.0) 3.3 g/dL (3.4-5.0) Laboratory Tests Test 12/30/16 04:30 Sodium Level 143 mmol/L (136-145) Potassium Level 3.6 mmol/L (3.5-5.1) Chloride Level 110 mmol/L (98-107) Carbon Dioxide Level 23 mmol/L (21-32) Anion Gap 10 (6-14) Blood Urea Nitrogen 17 mg/dL (8-26) Creatinine 1.5 mg/dL (0.7-1.3) Estimated GFR (Cockcroft-Gault) 56.0 Glucose Level 91 mg/dL (70-99) Calcium Level 8.8 mg/dL (8.5-10.1) Phosphorus Level 3.5 mg/dL (2.6-4.7) Magnesium Level 2.0 mg/dL (1.8-2.4) Albumin 3.3 g/dL (3.4-5.0) Medications Active Scripts Medications Dose Route/Sig Max Daily Dose Days Date Category Children's Aspirin (Aspirin) 81 Mg Tab.chew 81 Mg PO DAILY 03/24/16 Reported Hydrocodone-Apap 5-325 (Hydrocodone Bit/Acetaminophen) 1 Each Tablet 1 Tab PO PRN Q6HRS PRN 03/16/16 Rx Tramadol Hcl 50 Mg Tablet 50 Mg PO Q6H PRN 01/04/14 Reported Hydrochlorothiazide Tablet (Hydrochlorothiazide) 25 Mg Tablet 25 Mg PO DAILY 01/04/14 Reported Losartan Potassium 100 Mg Tablet 100 Mg PO DAILY 01/04/14 Reported Crestor (Rosuvastatin Calcium) 40 Mg Tablet 40 Mg PO HS 01/04/14 Reported Amlodipine Besylate 10 Mg Tablet 10 Mg PO DAILY 01/04/14 Reported Carvedilol 25 Mg Tablet 25 Mg PO BID 01/04/14 Reported Tamsulosin Hcl 0.4 Mg Cap.er.24h 0.4 Mg PO DAILY 01/04/14 Reported Niaspan (Niacin) 500 Mg Tab.er.24h 500 Mg PO HS 01/04/14 Reported Impression . 1. Abnormal x-ray compatible with acute systolic heart failure, possible combination with diastolic heart failure. 2. Coronary artery disease with previous stent placement. 3. Clinical presentation compatible with obstructive sleep apnea. 4. Obesity. 5. Hypertension. 6. Chronic kidney disease. 7. Cardiomyopathy may be new CATh with PCI 1. Two-vessel coronary artery disease 2. Successful PCI/stents placement to the left anterior descending and right coronary arteries. Plan . d/c today my office will arrange sleep study resp status is compensated off MAXI SALDANA MD Dec 30, 2016 13:13
--- NOTE | 2016-12-30 21:55 | DS ---
DATE OF DISCHARGE: 12/30/2016 PRIMARY DIAGNOSIS: Acute systolic congestive heart failure. ADDITIONAL DIAGNOSES: Ischemic cardiomyopathy with ejection fraction of 20-25%, left ureteral obstruction with stent, coronary artery disease with stenting during the ____ of the right coronary artery and left anterior descending by Cardiology, chronic kidney disease with acute kidney injury on admission with creatinine decreasing to 1.5, which is close to baseline by the time of discharge. CHIEF COMPLAINT AND HISTORY OF PRESENT ILLNESS: This 71-year-old black male had a sudden onset of shortness of breath, presenting to the Emergency Room where he was found to have bilateral pleural effusions and congestive heart failure. SUMMARY OF STAY: The patient was admitted, diuresed with resolution of his symptoms. He had a renal scan done showing ongoing some obstructive changes of left kidney and would need a stent replaced in that area; however, because of ____ congestive heart failure underwent cardiac catheterization, where he had stenting as noted above. He will be on Plavix and aspirin for the same with Cardiology's recommendations that he not have any procedures done or that he needs to be off of Plavix for at least the next 4 weeks. Again creatinine had decreased to 1.5. The patient was doing very well, felt ready for dismissal with outpatient followup to ensue. DISPOSITION: The patient is discharged to home. DIET: Low sodium diet. ACTIVITY: As tolerated. FOLLOWUP: Office of Dr. Gastelum in 1 week. DISCHARGE MEDICATIONS: Listed on the med record and have been addressed. ANUEL ELISE MD DR: NEPTALI/sanam JOB#: [id number] / [id number] Trav Rodríguez
[2016-12-31] MEDS ORDERED: MORPHINE SULFATE 2 MG/ML DISP.SYRIN. IV PRN (07:00)
[2016-12-31] MEDS ORDERED: ONDANSETRON PF 4 MG/2 ML VIAL. IV PRN (07:00)
[2016-12-31] MEDS ORDERED: fentaNYL PF VIAL 100 MCG/2 ML VIAL IV PRN ×2 (07:00)
[2016-12-31] MEDS ORDERED: LIDOCAINE 1% 1 ML SYRINGE. ID PRN (07:00)
[2016-12-31] MEDS ORDERED: IV RINGERS,LACTATED 1000ML 1,000 ML IV SCH (07:00)
[2016-12-31] MEDS ORDERED: PROCHLORPERAZINE 10 MG/2 ML VIAL. IV PRN (07:00)
[2016-12-31] MEDS ORDERED: HYDROmorphone 2 MG/ML VIAL IV PRN (07:00)
== END 2016-12-30 15:03 | disposition home or self-care (01) | DRG 248 ==
LOC: ER 01:20 → 2 SOUTH 03:08
PROVIDERS: ADMIT Family Medicine; ATTEND Family Medicine
PROC: 4A023N7 Measurement of Cardiac Sampling and Pressure, Left Heart, Percutaneous Approach (ICD-10-PCS; principal; 2016-12-28)
PROC: 02713EZ Dilation of Coronary Artery, Two Arteries with Two Intraluminal Devices, Percutaneous Approach (ICD-10-PCS; 2016-12-28)
PROC: B2111ZZ Fluoroscopy of Multiple Coronary Arteries using Low Osmolar Contrast (ICD-10-PCS; 2016-12-28)
DX: I25.110 Atherosclerotic heart disease of native coronary artery with unstable angina pectoris (principal); I50.23 Acute on chronic systolic (congestive) heart failure; J18.9 Pneumonia, unspecified organism; I13.0 Hypertensive heart and chronic kidney disease with heart failure and stage 1 through stage 4 chronic kidney disease, or unspecified chronic kidney disease; N17.9 Acute kidney failure, unspecified; N13.2 Hydronephrosis with renal and ureteral calculous obstruction; E66.9 Obesity, unspecified; M19.90 Unspecified osteoarthritis, unspecified site; K59.00 Constipation, unspecified; R09.02 Hypoxemia; E78.5 Hyperlipidemia, unspecified; G47.33 Obstructive sleep apnea (adult) (pediatric); I25.5 Ischemic cardiomyopathy; K21.9 Gastro-esophageal reflux disease without esophagitis; M81.0 Age-related osteoporosis without current pathological fracture; N28.1 Cyst of kidney, acquired; N18.3 Chronic kidney disease, stage 3 (moderate); Z82.49 Family history of ischemic heart disease and other diseases of the circulatory system; Z83.3 Family history of diabetes mellitus; Z87.442 Personal history of urinary calculi; Z90.49 Acquired absence of other specified parts of digestive tract; Z95.5 Presence of coronary angioplasty implant and graft; Z68.32 Body mass index [BMI] 32.0-32.9, adult; Z79.82 Long term (current) use of aspirin; Z79.899 Other long term (current) drug therapy; Z79.1 Long term (current) use of non-steroidal anti-inflammatories (NSAID); Z79.2 Long term (current) use of antibiotics
CPT/HCPCS: 36415; 71010; 71020; 74176; 76770; 78708; 80048; 80053; 80061; 80069; 81001; 83690; 83735; 83880; 84132; 84439; 84443; 84484; 85018; 85027; 87086; 90732; 92928; 93005; 93306; 93458; 93571; 93970; 94250; 94640; 94760; 96361; 96365; 96366; 96368; 96374; 96375; A9562; C1769; C1877; C1887; C1892; J0456; J0583; J0690; J1940; J2250; J2405; J3010; J3490; J7030; J7040; J7620; 99285-25

== ENCOUNTER → 2017-01-10 | Outpatient (CLI) | payer OTHER ==
[2016-12-30 08:54] VITALS: BP 125/85
[~2017-01-10] MED LIST changes: +ACET650S19 PO; +ASPI325T8 PO; +ATORVASTATIN CA80 MG PO; +CARV12.5 PO; +CLOP75TA PO; +FURO-68 PO; +LOSA50TA6 PO; +NITR0.4T22 SL; +POTA10TA12 PO
== END | disposition home or self-care (01) ==
LOC: SLPLAB 18:20
PROVIDERS: ATTEND Internal Medicine Pulmonary Disease
DX: G47.33 Obstructive sleep apnea (adult) (pediatric) (principal)
CPT/HCPCS: 95810

== ENCOUNTER → 2017-03-06 | Outpatient (CLI) | payer OTHER ==
--- NOTE | 2017-03-06 12:06 | KCIC ---
CT Abdomen and Pelvis without contrast History: Left renal calculus, stent Technique: Noncontrast CT imaging was performed of the abdomen and pelvis. Multiplanar images are reviewed. Exposure: One or more of the following individualized dose reduction techniques were utilized for this examination: 1. Automated exposure control 2. Adjustment of the mA and/or kV according to patient size 3. Use of iterative reconstruction technique. Comparison: December 24, 2016 [facility] Findings: There is again left ureteral stent which is unchanged in position, no calculus adjacent to the stent. There are several grouped remaining inferior left renal calculi which were present previously, two which have minimally migrated superiorly. Largest individual calculus is on the order of 0.5 to 0.6 cm. There is no significant hydronephrosis of either kidney. There is again 4.1 cm right renal cyst, also small 0.23 cm right renal calculus. There is improved aeration of the lung bases, some mild residual septal thickening such as right lower lobe.Accurate evaluation of abdominal visceral organs is limited without intravenous contrast. There is no obvious abnormality of the spleen, liver, or pancreas. There is no adrenal nodularity. There has been cholecystectomy. There is again diverticulosis greatest of the sigmoid and descending colon without evidence of diverticulitis. Small bowel is not significantly dilated. There is no free air or free fluid. There is multilevel moderate to severe degenerative disc disease lumbar spine, also multilevel spondylosis and facet degenerative change. There is moderate to severe spinal stenosis L4-5. Impression: 1. There is left ureteral stent. There are several remaining inferior left renal calculi. There is right renal cyst, also small right renal calculus. There is no significant hydronephrosis of either kidney. 2. There is colonic diverticulosis. 3. There is multilevel lumbar degenerative disc disease and spondylosis, suspected moderate to severe spinal stenosis L4-5. Electronically signed by: Darrian Crabtree MD (03/06/2017 12:03 PM) [id number]
--- NOTE | 2017-03-06 14:35 | KCIC ---
History: Renal calculus. Comparison: CT abdomen pelvis March 06, 2017. Findings: AP view of the abdomen. Both renal shadows are partially obscured by bowel gas and stool. A 4 mm calcification projects over the inferior pole of the right kidney. There is a left double-J ureteral stent. No calcification is seen along the course of the stent. The inferior pole of the left kidney demonstrates a cluster of multiple stones ranging in size from 2 through 5 mm. Cholecystectomy clips are present. Multilevel degenerative disc disease is seen. Impression: 1. Bilateral nephrolithiasis. 2. Left ureteral stent. Electronically signed by: Kulwant Quan MD (03/06/2017 2:31 PM) [facility]
== END | disposition home or self-care (01) ==
LOC: KCIC CT 11:11
PROVIDERS: ATTEND Urology
DX: N20.0 Calculus of kidney (principal); M51.36 Other intervertebral disc degeneration, lumbar region; K57.30 Diverticulosis of large intestine without perforation or abscess without bleeding; M48.06 Spinal stenosis, lumbar region
CPT/HCPCS: 74000; 74176

== ENCOUNTER → 2017-08-28 | Outpatient (CLI) | payer OTHER | END | disposition home or self-care (01) | LOC: ECHO 10:33 | DX: I25.5 Ischemic cardiomyopathy (principal); I34.0 Nonrheumatic mitral (valve) insufficiency; I35.8 Other nonrheumatic aortic valve disorders; I51.7 Cardiomegaly | CPT/HCPCS: 93306 ==

== ENCOUNTER → 2017-09-17 | Outpatient (CLI) | payer OTHER | END | disposition home or self-care (01) | LOC: RAD 09:54 | DX: N20.0 Calculus of kidney (principal) | CPT/HCPCS: 74018 ==

== ENCOUNTER 2017-10-06 08:21 | Emergency (ER) | payer OTHER | END 2017-10-06 08:54 | disposition home or self-care (01) | LOC: ER 08:54 | DX: L25.9 Unspecified contact dermatitis, unspecified cause (principal); I10 Essential (primary) hypertension; Z87.442 Personal history of urinary calculi; Z95.5 Presence of coronary angioplasty implant and graft | CPT/HCPCS: 99283 ==

== ENCOUNTER → 2017-10-25 | Outpatient (CLI) | payer OTHER ==
[~2017-10-25] MED LIST changes: -ACET650S19 PO; -AMLO10TA2 PO; -ASPI-482 PO; -ASPI325T8 PO; -ASPI81TA44 PO; -ATORVASTATIN CA80 MG PO; -CARV12.5 PO; -CARV25TA2 PO; -CLOP75TA PO; -CRESTOR40 MG PO; -FURO-68 PO; +FUROSEMIDE 40 MG/4 ML VIAL.; -HYDR-2758 PO; -HYDR25TA9 PO; -LOSA100T6 PO; -LOSA50TA6 PO; -NIAC500T PO; -NITR0.4T22 SL; -POTA10TA12 PO; -TAMS0.4C2 PO; -TRAM50TA PO
[2017-10-25] MEDS: FUROSEMIDE 40 MG/4 ML VIAL. IVP (12:27)
== END | disposition home or self-care (01) ==
LOC: NM 10:58
DX: N13.2 Hydronephrosis with renal and ureteral calculous obstruction (principal)
CPT/HCPCS: 78708; 96374; 96375; A9562; J1940